=== PATIENT | male | born 1935 | race Caucasian/White ===

== ENCOUNTER 2017-10-12 10:39 | Emergency (ER) | payer MEDICARE, OTHER ==
[~2017-10-12] VITALS: Ht 175.3 cm; Wt 99.0 kg
[~2017-10-12 10:39] MED LIST: ALPR0.5T3 PO; APIX2.5T PO; CALC-197 PO; CARV25TA PO; FERR140T PO; ISOS60 PO; LASI20TA PO; PACE200T4 PO; PRIN20TA2 PO; PROT40TA PO; SIMV40 PO; ST JTAB PO; SYNT25TA PO; TAB-TAB PO
[2017-10-12 10:56] VITALS: BP 114/57; PULSE 75; RESP 20; TEMP 97.6; O2SAT 95
--- NOTE | 2017-10-12 11:20 | PD ---
HPI Chief Complaint: Fall Time Seen by Provider: 11:06 Travel History International Travel<30 days: No Contact w/Intl Traveler<30days: No Traveled to known affect area: No History of Present Illness HPI Patient comes to the emergency department for evaluation status post mechanical fall that occurred 4 days ago. Patient states he got out of his car in the [employer] parking lot when he tripped over something landing on his left side. Patient denies hitting his head or loss of consciousness. Patient complaining of left elbow pain, bilateral hip pain, left rib pain, and sore muscles. Describes pain as achy like in nature. Patient reports taking Tylenol for symptomatic relief and cleaning his skin tear. Patient reports his tetanus shot is up-to-date. 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 Patient is on Eliquis. Denies any radiation of pain. Pain is worse with movement, cough, and deep inspiration. Denies any chest pain, shortness of breath, dizziness, or syncope. 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) Cardiac Catheterization: Yes Cardiovascular Problems: Yes High Cholesterol: Yes Coronary Artery Disease: Yes Diabetes: No Diminished Hearing: Yes Endocrine: Yes Gastrointestinal Disorders: No Glaucoma: No Genitourinary: No Hepatitis: No Hiatal Hernia: No Hypertension: Yes Implanted Vascular Access Dvce: Yes Medical other: Yes (, AAA HISTORY) Musculoskeletal: No Neurologic: Yes Psychiatric: Yes Reproductive: No Respiratory: Yes Immunizations Current: Yes Thyroid Disease: Yes Tetanus Vaccination: < 5 Years Influenza Vaccination: Yes Past Surgical History AICD: Yes Cardiac Surgery: Yes (cabg pacemaker) Coronary Artery Bypass Graft: Yes Eye Surgery: Yes (BILAT. CATARACTS REMOVED) Other Surgery: Yes Social History Alcohol Use: Yes Tobacco Use: No Substance Use: No Allergies-Medications (Allergen,Severity, Reaction): Coded Allergies: penicillin G (Unverified Allergy, Severe, Anaphylaxis, 10/12/17) Reported Meds & Prescriptions Reported Meds & Active Scripts Active Reported Melatonin 10 Mg-1 Mg Tab 10 Mg PO HS PRN Flexeril (Cyclobenzaprine HCl) 10 Mg Tab 10 Mg PO TID Alprazolam 0.5 Mg Tab 0.5 Mg PO TID PRN Aspirin EC (Aspirin) 81 Mg Tabdr 81 Mg PO ,, Coq-10 (Coenzyme Q10 (Ubidecarenone)) 30 Mg Cap 2 Tab PO DAILY Multiple Vitamin 1 Tab 1 Tab PO DAILY Calcium 500 +D (Calcium Carbonate-Cholecalciferol) 500-400 Mg-Unit Tab 1 Tab PO BID Levothyroxine (Levothyroxine Sodium) 25 Mcg Tab 37.5 Mcg PO WED,WED Levothyroxine (Levothyroxine Sodium) 25 Mcg Tab 25 Mcg PO - Levothyroxine (Levothyroxine Sodium) 25 Mcg Tab 25 Mcg PO DAILY Isosorbide Dinitrate 30 Mg Tab 60 Mg PO DAILY [iron] 65 Mg PO QOD Omeprazole 40 Mg Cap 40 Mg PO DAILY Carvedilol 25 Mg Tab 25 Mg BID Losartan (Losartan Potassium) 100 Mg Tab 100 Mg PO DAILY Amiodarone (Amiodarone HCl) 200 Mg Tab 200 Mg PO DAILY Eliquis (Apixaban) 2.5 Mg Tab 2.5 Mg PO BID Review of Systems Except as stated in HPI: all other systems reviewed are Neg Physical Exam Narrative GENERAL: Well-developed, overly nourished, in no acute distress, and non-ill appearing. SKIN: Focused skin assessment warm and dry. Patient has a dressing over his left elbow reports his farm tractor mechanic was placed after cleaning his skin tear. It is dry clean and intact. HEAD: Atraumatic. Normocephalic. EYES: Pupils equal and round. EOMI. No scleral icterus. No injection or drainage. ENT: No nasal bleeding or discharge. Mucous membranes pink and moist. NECK: Trachea midline. No nuclear rigidity. CARDIOVASCULAR: Regular rate and rhythm. No murmur appreciated. Radial and dorsal pulses 2+, intact, and equal bilaterally. Capillary refill less than 2 seconds. RESPIRATORY: No accessory muscle use. No respiratory distress. Clear to auscultation. Breath sounds equal bilaterally. Patient reports tenderness to palpation over left lateral rib cage. No crepitus or step-off noted. GASTROINTESTINAL: Abdomen soft, non-tender, nondistended, and no guarding. Hepatic and splenic margins not palpable. No pulsatile mass. MUSCULOSKELETAL: No obvious deformities. No clubbing. No cyanosis. No edema. Full range of motion for patient. Elbow : FROM and strength equal BL with passive flexion, extension, and pronation/supination. No laxity noted with varus and valgus maneuvers. Pulses equal BL distal to injury. Capillary refill less than 2 seconds distal to injury and equal BL. FROM distal to injury and equal BL. Strength distal to injury equal BL. NV intact distal to injury and equal BL. Flexion and extension of thumb equal BL. Equal strength and movement with abduction/adductions of BL fingers. [employer] strength equal BL. Pelvic stable. Hip: Equal range of motion BL with passive flexion, extension, Abduction, Adduction, and internal/external rotation. Equal range of motion distal to injury and equal BL. Strength distal to injury equal BL. NV intact distal to injury and equal BL. Plantar flexion and dorsal flexion equal BL. Sensation equal BL 1st web space. NEUROLOGICAL: Awake and alert. No obvious cranial nerve deficits. Motor grossly within normal limits. Normal speech. PSYCHIATRIC: Appropriate mood and affect; insight and judgment normal. Data Data Last Documented VS Vital Signs Date Time Temp Pulse Resp B/P (MAP) Pulse Ox O2 Delivery O2 Flow Rate FiO2 10/12/17 12:40 10/12/17 11:29 100.3 88 16 96 Room Air Orders Orders Elbow, Complete (4 Vws) (10/12/17 ) Ribs, Uni (W/Exp Cxr-Min 3vw) (10/12/17 ) Pelvis, Ap Only (Routine) (10/12/17 ) Resp Incentive Spirometry (10/12/17 ) Ed Discharge Order (10/12/17 12:29) [facility] Medical Decision Making Medical Screen Exam Complete: Yes Emergency Medical Condition: Yes Interpretation(s) Last Impressions Ribs X-Ray 10/12/17 0000 Signed Impressions: Service Date/Time: Thursday, October 12, 2017 11:31 - CONCLUSION: 1. There is a left eighth rib fracture laterally. No pneumothorax or effusion. Parmjit Conner MD Pelvis X-Ray 10/12/17 0000 Signed Impressions: Service Date/Time: Thursday, October 12, 2017 11:31 - CONCLUSION: 1. No acute fracture. Mild osteoarthritis of the hips. Postoperative change as above. Parmjit Conner MD Elbow X-Ray 10/12/17 0000 Signed Impressions: Service Date/Time: Thursday, October 12, 2017 11:31 - CONCLUSION: 1. No acute fracture. Moderate degenerative change. Parmjit Conner MD Differential Diagnosis Fracture, strain, contusion, pneumothorax, hemopneumothorax Narrative Course The patient suffered rib fracture with chest wall contusion. There is no clinical evidence to suggest intrathoracic injury nor cardiac injury at this time. There was no clinical evidence to suggest flail chest. The patient moves air well without difficulty and is clear to auscultation. Heart sounds are audible without rubs, murmurs or gallops. There is no palpable crepitus. Pulses are symmetrical and strong. There is no significant tenderness over the lower chest to suggest injury to the liver nor spleen. Chest X-ray was normal without evidence of pneumothorax or hemothorax. The mediastinum appeared within normal limits. Diagnosis was discussed with the patient. The patient was discharged with a Inspiratory Spirometer after training. The patient is to return if develops any worsening pain, difficulty breathing, or if coughs up blood or develops fever. Patient agrees with plan and was recommended to follow up with their regular physician. The patient appears to have suffered a contusions. There is no clinical evidence to suspect bony injury by exam. Radiographic examination revealed no fracture seen at this time. The patient has equal range of motion on active and passive motions. There is no significant edema. There is no proximal or distal joint effusion. The distal extremity appears neurovascularly intact, without evidence of neurovascular injury nor compartment syndrome. Tendon exam also was intact. The patient was discharged and given warnings for vascular compromise. The patient is to follow up with their regular physician. The patient agrees with plan. Patient in no obvious distress upon re-evaluation. All pertinent Radiology result(s) discussed with patient and his significant other. Any questions/ concerns in reference to patient diagnosis/condition discussed and clarified prior to patient's discharge. Reinforced sheer importance of close follow up with patient's primary physician or primary care clinic. Instructed patient to return to ED immediately, if symptoms return/worsen. Patient showed understanding of above instructions. Further instructions and recommendations were detailed in discharge paperwork. Patient ambulated without difficulty out of ED at discharge. Diagnosis Primary Impression: Left rib fracture Qualified Codes: S22.32XA - Fracture of one rib, left side, initial encounter for closed fracture Additional Impression: Multiple contusions Patient Instructions: Contusion in Adults (ED), General Instructions, Rib Fracture (ED) Additional Instructions: Follow-up with your primary care physician in 3-5 days for reevaluation. Use [id number] Tylenol as needed for pain control. Follow instructions on the packaging. Use incentive spirometer as instructed 10 times per hour to decrease chances of getting pneumonia. Keep wound dry and clean as possible using soap and water. Apply ice to affected area 20 min/h as needed for pain. Return to the emergency department if symptoms get worse. Disposition: 01 DISCHARGE HOME Condition: Stable Kevin Mercedes Oct 12, 2017 11:20
[2017-10-12] MEDS ORDERED: OMEP40CA2 PO (11:22)
[2017-10-12] MEDS ORDERED: CARV25TA (11:22)
[2017-10-12] MEDS ORDERED: COQ-30CA2 PO (11:22)
[2017-10-12] MEDS ORDERED: MELA1TAB18 PO (11:22)
[2017-10-12] MEDS ORDERED: AMIO200T PO (11:22)
[2017-10-12] MEDS ORDERED: LEVO25TA4 PO ×3 (11:22)
[2017-10-12] MEDS ORDERED: ALPR0.5T3 PO (11:22)
[2017-10-12] MEDS ORDERED: CYCL10TA PO (11:22)
[2017-10-12] MEDS ORDERED: LOSA100T PO (11:22)
[2017-10-12] MEDS ORDERED: ASPI81TA23 PO (11:22)
[2017-10-12] MEDS ORDERED: APIX2.5T PO (11:22)
[2017-10-12] MEDS ORDERED: MULTTAB67 PO (11:22)
[2017-10-12] MEDS ORDERED: ISOS30TA17 PO (11:22)
[2017-10-12] MEDS ORDERED: iron PO (11:22)
[2017-10-12] MEDS ORDERED: CALC1TAB12 PO (11:22)
[2017-10-12 11:29] VITALS: BP 117/56; PULSE 88; RESP 16; TEMP 100.3; O2SAT 96
--- NOTE | 2017-10-12 12:20 | RADRPT ---
EXAM DATE/TIME: 10/12/2017 11:31 [facility] COMPARISON: No previous studies available for comparison. INDICATIONS : Left hip/pelvic pain post fall 4 days ago. MEDICAL HISTORY : Hypercholesterolemia. Hypertension Thyroid disease. CAD. A-fib. SURGICAL HISTORY : Total knee replacement, left. Total knee replacement, right. Pacemaker. CABG. Cardiac cath. AAA. ENCOUNTER: Initial ACUITY: 4 - 6 days PAIN SCORE: 7/10 LOCATION: Left hip/pelvis FINDINGS: A single frontal view of the pelvis demonstrates osteopenia. Mild osteoarthritis of the bilateral hip s. Distal aortic and biiliac stent is present. Embolization coils left hemipelvis. Extensive vascular calcifications. No acute fracture identified. CONCLUSION: 1. No acute fracture. Mild osteoarthritis of the hips. Postoperative change as above. Parmjit Conner MD on October 12, 2017 at 12:15 Board Certified Radiologist. This report was verified electronically.
--- NOTE | 2017-10-12 12:23 | RADRPT ---
EXAM DATE/TIME: 10/12/2017 11:31 [facility] COMPARISON: No previous studies available for comparison. INDICATIONS : Left elbow pain post fall. MEDICAL HISTORY : Hypercholesterolemia. Hypertension Thyroid disease. A-fib. CAD. SURGICAL HISTORY : Total knee replacement, left. Pacemaker. Total knee replacement, right. CABG. Cardiac cath. AAA. ENCOUNTER: Initial ACUITY: 4 - 6 days PAIN SCORE: 7/10 LOCATION: Left elbow FINDINGS: There is moderate osteoarthritis at the elbow joint. Small joint effusion. Extensive periarticular ca lcifications present. No acute fracture. CONCLUSION: 1. No acute fracture. Moderate degenerative change. Parmjit Conner MD on October 12, 2017 at 12:18 Board Certified Radiologist. This report was verified electronically.
--- NOTE | 2017-10-12 12:25 | RADRPT ---
EXAM DATE/TIME: 10/12/2017 11:31 [facility] COMPARISON: No previous studies available for comparison. INDICATIONS : Left rib pain post fall. MEDICAL HISTORY : Hypercholesterolemia. Hypertension CAD. Thyroid disease. A-fib. SURGICAL HISTORY : Total knee replacement, left. Total knee replacement, right. Abdominal aortic aneurysm repair. Pacema ker. Cardiac cath. CABG. ENCOUNTER: Initial ACUITY: 4 - 6 days PAIN SCORE: 9/10 LOCATION: Left lateral ribs FINDINGS: There is a left-sided eighth rib fracture. No pneumothorax or significant pleural effusion. Previous median sternotomy with pacer lead placement for a distal aortic and iliac stents. CONCLUSION: 1. There is a left eighth rib fracture laterally. No pneumothorax or effusion. Parmjit Conner MD on October 12, 2017 at 12:21 Board Certified Radiologist. This report was verified electronically.
[2017-10-13] MEDS ORDERED: FERR325T18 PO (11:11)
== END 2017-10-12 12:40 | disposition home or self-care (01) ==
LOC: PHEFT 10:39
DX: S22.32XA Fracture of one rib, left side, initial encounter for closed fracture (principal); S20.219A Contusion of unspecified front wall of thorax, initial encounter; S50.02XA Contusion of left elbow, initial encounter; S70.02XA Contusion of left hip, initial encounter; S70.01XA Contusion of right hip, initial encounter; W01.0XXA Fall on same level from slipping, tripping and stumbling without subsequent striking against object, initial encounter; Y92.481 Parking lot as the place of occurrence of the external cause; I48.91 Unspecified atrial fibrillation; I10 Essential (primary) hypertension; I25.10 Atherosclerotic heart disease of native coronary artery without angina pectoris; E07.9 Disorder of thyroid, unspecified; F41.9 Anxiety disorder, unspecified; H91.90 Unspecified hearing loss, unspecified ear; Z79.01 Long term (current) use of anticoagulants; Z85.828 Personal history of other malignant neoplasm of skin; Z86.79 Personal history of other diseases of the circulatory system; Z86.69 Personal history of other diseases of the nervous system and sense organs
CPT/HCPCS: 71101; 72170; 73080; 94150; 99284

== ENCOUNTER 2018-07-25 01:39 | Inpatient (IN) ==
[2018-07-25] MEDS ORDERED: Etomidate Inj 40 MG/20 ML Vial IV.PUSH ONE (01:48)
[2018-07-25] MEDS ORDERED: Midazolam Inj 5 MG/ML 1 ML Vial ONE ×2 (02:07→02:24)
[2018-07-25] MEDS ORDERED: Sod Chloride 0.9% Inj 1,000 ML IV.SIG ONE ×2 (02:08→17:32)
[2018-07-25] MEDS ORDERED: Etomidate Inj 20 MG/10 ML Ampul IV.PUSH ONE (02:10)
[2018-07-25] MEDS ORDERED: Succinylcholine Inj 100 MG/5 ML Syringe IV.PUSH ONE (02:10)
[2018-07-25] MEDS ORDERED: Midazolam 100 MG/100 ML Inj 100 MG/100 ML BAG IV.CONT ONE (02:34)
[2018-07-25] MEDS ORDERED: fentaNYL 10 mcg/mL Premix Drip 2,500 MCG/250 ML BAG ONE (02:34)
[2018-07-25 02:37] LABS: Baso % (Auto) 0.3 % (0.0-2.0); Eos % (Auto) 0.4 % (0.0-4.0); Lymph # (Auto) 0.5 th/mm3 (1.0-4.8); Lymph % (Auto) 10.6 % (9.0-44.0); Mean Corpuscular HGB Conc 31.3 % (32.0-36.0); Mean Corpuscular Hemoglobin 33.3 pg (27.0-34.0); Mean Corpuscular Volume 106.2 fL (80.0-100.0); Mean Platelet Volume 11.6 fL (7.0-11.0); Mono # (Auto) 0.4 th/mm3 (0.0-0.9); Mono % (Auto) 8.4 % (0.0-8.0); Neut % (Auto) 80.3 % (16.0-70.0); Platelet Count 57 th/mm3 (150-450); Red Cell Distribution Width 21.2 % (11.6-17.2)
[2018-07-25 02:38] LABS: Red Blood Count 0.76 mil/mm3 (4.50-5.90)
[2018-07-25 02:42] LABS: Hemoglobin 2.5 gm/dL (13.0-17.0)
[2018-07-25 02:43] LABS: Hematocrit 8.1 % (39.0-51.0)
[2018-07-25 02:58] LABS: Activated Partial Thrombo Time 38.7 sec (23.4-31.7); Albumin 2.4 g/dL (3.4-5.0); Calcium 6.4 mg/dL (8.5-10.1); Carbon Dioxide 15.4 meq/L (21.0-32.0); INR 1.5 Ratio; Potassium 4.7 meq/L (3.5-5.1); Prothrombin Time 15.3 sec (9.8-11.6); Troponin I 0.03 ng/mL (0.02-0.05)
--- NOTE | 2018-07-25 03:00 | CT ---
EXAM DATE: 07/25/2018 2:49 AM EST AGE/SEX: 83 years / Male INDICATIONS: Dissection versus Aneurysm. Patient unresponsive. CLINICAL DATA: This is the patient's initial encounter. Patient reports that signs and symptoms have been present for 1 day and indicates a pain score of Nonresponsive. MEDICAL/SURGICAL HISTORY: Non-responsive. Non-responsive. RADIATION DOSE: 10.39 CTDI (mGy) COMPARISON: POI, CT ABDOMEN AND PELVIS W AND W/O CONTRAST, 11/19/2017. . TECHNIQUE: Volumetric scanning was performed using a multi-row detector CT scanner during bolus infu dewayne of 100 ml Omnipaque 350 (iohexol) nonionic water-soluble contrast as a single exam dose. The d jc was post processed with a variety of visualization algorithms including full volume maximum inten sity projection, multi-planar sliding thin slab reformation, curved planar reformation, and surface r endering techniques. Using automated exposure control and adjustment of the mA and/or kV according t o patient size, radiation dose was kept as low as reasonably achievable to obtain optimal diagnostic quality images. DICOM format image data is available electronically for review and comparison. FINDINGS: THORACIC/ABDOMINAL AORTA: Diffuse atherosclerotic plaque throughout the aorta and its major branches. No dissection or aneurysm. 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 3 cm. There is limited opacification of the aorta with the contrast bolus. No endoleak seen on this l imited study. 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 50% stenosis the left renal artery origin and 40% st enosis the right renal artery origin. HEART AND MEDIASTINUM: Mild cardiomegaly without pericardial effusion. Pronounced coronary artery ath erosclerotic calcifications. Pulmonary arteries are normal in caliber. Tip of endotracheal tube withi n the origin of the right mainstem bronchus. No mass or adenopathy. LUNG PARENCHYMA: Mild bibasilar atelectasis. Scattered calcified granulomas. No infiltrate or mass. N o effusions. OTHER STRUCTURES: Granulomatous calcifications involving the liver and spleen. The kidneys are somewh at atrophic. A trace amount of ascitic fluid is seen around the liver and gallbladder fossa. Scattere d colonic diverticuli without acute inflammation. Urinary bladder is decompressed and contains a Fole y balloon. CONCLUSION: 1. Tip of the endotracheal tube within the origin of the right mainstem bronchus. 2. No dissection. 3. 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 I am not able to clearly identify the endoleak on this study, however , there is limited opacification of the aorta which would make identification of an endoleak difficul t. 4. Hemodynamically significant stenoses involving the celiac, SMA, and renal arteries 5. Trace amount of ascites. Electronically signed by: Bala Adkins MD 07/25/2018 2:59 AM EST
[2018-07-25] MEDS: fentaNYL 10 mcg/mL Premix Drip 2,500 MCG/250 ML BAG IV.SIG PRN ×2 (03:20→08:01)
[2018-07-25] MEDS: Midazolam 100 MG/100 ML Inj 100 MG/100 ML BAG IV.CONT PRN ×3 (03:21→22:47)
--- NOTE | 2018-07-25 03:23 | ED ---
HPI General Chief Complaint: Syncope Stated Complaint: Medical Time Seen by Provider: 07/25/18 02:08 Source: EMS Mode of arrival: EMS Limitations: altered mental status History of Present Illness HPI narrative: 83-year-old male came to the emergency room with history of near syncopal episode x2 at home tonight. His called 911. As per EMS when they arrived patient was talking and had a good blood pressure and heart rate. However midway into the right he started getting very anxious and complained of being thirsty and needing to drink water. His blood pressure at that point was 60 systolic. He started to look pale. By the time where they arrived to the ER he started to look in extremis. Patient was extremely pale upon arrival. Blood pressure was difficult to be recorded. Patient was moaning and answered upon repeated questioning. Patient was not complaining of any pain. No history of GI bleed as per the paramedics. Patient was in no condition to give any meaningful history. Related Data Home Medications Medication Instructions Recorded Confirmed amiodarone 200 mg PO DAILY 07/25/18 07/25/18 apixaban [Eliquis] 2.5 mg PO BID 07/25/18 07/25/18 aspirin [Aspir-Low] 81 mg PO DAILY 07/25/18 07/25/18 calcium carbonate [Calcium 600] 07/25/18 carvedilol 25 mg PO BID 07/25/18 07/25/18 furosemide 40 mg PO DAILY 07/25/18 07/25/18 isosorbide mononitrate 60 mg PO DAILY 07/25/18 07/25/18 levothyroxine 25 mcg PO DAILY 07/25/18 07/25/18 omeprazole 20 mg PO DAILY 07/25/18 07/25/18 potassium chloride 10 meq PO BID 07/25/18 07/25/18 rosuvastatin [Crestor] 5 mg PO DAILY 07/25/18 07/25/18 sacubitril-valsartan [Entresto] 1 tab PO BID 07/25/18 07/25/18 Allergies Allergy/AdvReac Type Severity Reaction Status Date / Time penicillin G Allergy Severe Anaphylaxis Verified 07/25/18 02:21 Review of Systems ROS: all other systems reviewed are negative [facility] Medical History Medical History A-fib (Acute) Artificial cardiac pacemaker (Acute) CAD (coronary artery disease) (Acute) Cardiac defibrillator in place (Acute) Heart valve disease (Acute) High cholesterol (Acute) Hypertension (Acute) Hypothyroidism (Acute) Prostate cancer (Acute) Psoriasis (Acute) Surgical History Surgical History H/O knee surgery (Acute) History of abdominal aortic aneurysm (AAA) repair (Acute) Social History Social History Substance History: No History of Abuse Second Hand Smoke Exposure: No Smoking Status: Unknown if ever smoked How Often Do You Have a Drink Containing Alcohol: Unable to Obtain Recent Travel in [facility] within the Last 8 Weeks: No Recent Out of Country Travel within the Last 8 Weeks: No Exam Narrative Exam Narrative: GENERAL: Altered mental status, significant distress, impending respiratory failure SKIN: Cool and pale HEAD: Atraumatic. Normocephalic. EYES: Pupils equal and round. No scleral icterus. No injection or drainage. ENT: No nasal bleeding or discharge. Mucous membranes pink and moist. Pallor 4 + NECK: Trachea midline. No JVD. CARDIOVASCULAR: Regular rate and rhythm. No murmur appreciated. RESPIRATORY: No accessory muscle use. Clear to auscultation. Breath sounds equal bilaterally. GASTROINTESTINAL: Abdomen soft, non-tender, nondistended. Hepatic and splenic margins not palpable. MUSCULOSKELETAL: No obvious deformities. No clubbing. No cyanosis. No edema. NEUROLOGICAL: GCS of 12. No obvious cranial nerve deficits. Motor grossly within normal limits. Slurred speech. PSYCHIATRIC: Anxious Procedures Hemaprompt Stool Procedural Steps Taken: specimen placed in appropriate test area, developer placed on specimen and control areas and controls appropriately positive and negative Hemaprompt Stool Result: negative Intubation Sedative: etomidate Mg Given: 20 Paralytic: succinylcholine Mg Given: 100 Laryngoscope: Natalie ET Tube Size: 7.5 ET Tube Uncuffed: No Tube Secured Depth (cm): 24 Tube Placement Confirmation: visualized tube passing through cords, equal breath sounds bilaterally and confirmation by capnometry Patient Tolerated Procedure: well Intubation Complications: none Ultrasound POC Ultrasound Procedure: Emergency department Abdominal Aortic Aneurysm ultrasound was performed with patient consent. Curvilinear probe was used in the transverse and sagittal views within the epigastric, supraumbilical, and infraumbilical with evidence of Abdominal Aortic Aneurysm. Course Initial Documented Vital Signs Temperature 97 F L 07/25/18 02:00 Pulse Rate 67 07/25/18 02:00 Respiratory Rate 20 07/25/18 02:00 Blood Pressure 107/67 07/25/18 02:00 Pulse Oximetry 98 07/25/18 02:00 Last Documented Vital Signs Temperature 97 F L 07/25/18 05:13 Pulse Rate 60 07/25/18 05:16 Respiratory Rate 16 07/25/18 05:16 Blood Pressure 99/54 L 07/25/18 05:16 Pulse Oximetry 98 07/25/18 05:10 Critical Care Time Critical Care Time: Yes Total Critical Care Time: 75 Attestation: Aggregate critical care time was 75 minutes. Time to perform other separately billable procedures was not included in the critical care time. My time did not include minutes spent treating any other patients simultaneously or on activities that did not directly contribute to the patient's treatment. The services I provided to this patient were to treat and/or prevent clinically significant deterioration that could result in: Hemorrhagic shock, multiple blood transfusion, respiratory failure, ventilator management I provided critical care services requiring my management, as noted below: Chart data review, documentation time, medication orders and management, vital sign assessments/reviewing monitor data, ordering and reviewing lab tests, ordering and interpreting/reviewing x-rays and diagnostic studies, care of the patient and discussion of the patient with the admitting physicians. Medical Decision Making MDM Narrative Medical decision making narrative: 4 AM based on the bedside ultrasound and the clinical presentation patient was rushed to the CT scanner for thoracic aortogram without the creatinine result for possible ruptured AAA. He was started on 4 units of emergency release blood. Patient's blood pressure stabilized from that point. CT scan showed a AAA with questionable endoleak. I discussed the case with Dr. Lewis was application lead for vascular. He reviewed the CAT scan and did not think that there was any rupture to the AAA. As per him this was stable and to look for other causes of the bleeding. Given his Hemoccult positive GI was paged. Several pages have been put in GI has not called back yet. Patient has been started on Protonix bolus and drip. NG tube has not put out any blood. Patient was given 1 unit of FFP. I discussed the case with Raymundo from ICU who has accepted the patient. She has put a central line. Please refer to her dictation. I discussed the case in details with patient's , daughter in person as well as another daughter on the phone. I explained to them about patient's condition and possible etiologies to his hemorrhagic shock. I have answered all the questions the best of my ability. Patient is in a critical condition. Lab Data Result diagrams: 07/25/18 03:05 07/25/18 02:20 Lab Results 07/25/18 07/25/18 07/25/18 Range/Units 02:08 02:20 02:20 WBC 5.0 (4.0-11.0) th/mm3 RBC 0.76 L (4.50-5.90) mil/mm3 Hgb 2.5 L* (13.0-17.0) gm/dL Hct 8.1 L* (39.0-51.0) % MCV 106.2 H (80.0-100.0) fL MCH 33.3 (27.0-34.0) pg MCHC 31.3 L (32.0-36.0) % RDW 21.2 H (11.6-17.2) % Plt Count 57 L (150-450) th/mm3 MPV 11.6 H (7.0-11.0) fL Prelim Diff (Auto) Slide review pending Neut % (Auto) 80.3 H (16.0-70.0) % Lymph % (Auto) 10.6 (9.0-44.0) % [place] % (Auto) 8.4 H (0.0-8.0) % Eos % (Auto) 0.4 (0.0-4.0) % Baso % (Auto) 0.3 (0.0-2.0) % Neut # (Auto) 4.0 (1.8-7.7) th/mm3 Lymph # (Auto) 0.5 L (1.0-4.8) th/mm3 [place] # (Auto) 0.4 (0.0-0.9) th/mm3 Eos # (Auto) 0.0 (0.0-0.4) th/mm3 Baso # (Auto) 0.0 (0.0-0.2) th/mm3 WBC Differential . Diff Scan Auto diff confirmed Differential Comment . Platelet Estimate Low L (Normal) Platelet Morphology Enlarged H (Normal) Jerry Cells (None) Acanthocytes (Spur) Occ H (None) Keratocytes Occ H (None) PT (9.8-11.6) sec INR Ratio APTT (23.4-31.7) sec Puncture Site Patient Temperature O2 Saturation (90-100) % ABG pH (7.380-7.420) ABG pCO2 (38-42) mmHg ABG pO2 (61-120) mmHg ABG HCO3 (22-26) mmol/L ABG O2 Content (12.0-20.0) Vol % ABG Base Excess (-2-2) mmol/L ABG Methemoglobin (0-2) % Tao Test Hemoglobin (12.0-16.0) G/DL Carboxyhemoglobin (0-4) % O2 Delivery Device Vent Setting Inspired O2 % Critical Value Sodium (136-145) meq/L Potassium (3.5-5.1) meq/L Chloride (98-107) meq/L Carbon Dioxide (21.0-32.0) meq/L Anion Gap (5-15) meq/L BUN (7-18) mg/dL Creatinine (0.60-1.30) mg/dL Estimated GFR (>89) mL/min Random Glucose (74-106) mg/dL Lactic Acid (0.4-2.0) mmol/L Calcium (8.5-10.1) mg/dL Calcium Adj for Albumin (8.5-10.1) mg/dL Total Bilirubin (0.2-1.0) mg/dL AST (15-37) U/L ALT (12-78) U/L Alkaline Phosphatase (45-117) U/L Troponin I (0.02-0.05) ng/mL Total Protein (6.4-8.2) g/dL Albumin (3.4-5.0) g/dL Urine Color (Yellw/Straw) Urine Clarity (Clear) Urine pH (5.0-8.5) Ur Specific [place] (1.002-1.035) Urine Protein (Neg-Trace) mg/dL Urine Glucose (UA) (Negative) mg/dL Urine Ketones (Negative) mg/dL Urine Occult Blood (Negative) Urine Nitrate (Negative) Urine Bilirubin (Negative) Urine Urobilinogen (Less than 2) mg/dL Ur Leukocyte Esterase (Negative) Urine RBC (0-3) /hpf Urine WBC (0-5) /hpf Ur Squamous Epith Cells (0-5) /hpf Urine Bacteria (None) /hpf Hyaline Casts (0-3) /lpf Urine Mucus (Occasional) /lpf Micro UA Comment Ur Microscopic Review Urine Culture Comments Blood Type A Positive Antibody Screen Negative MTS Gel Crossmatch See Detail Blood Bank Comment Bld Prod Order Comment 07/25/18 07/25/18 07/25/18 Range/Units 02:20 02:20 03:05 WBC 6.7 (4.0-11.0) th/mm3 RBC 1.80 L (4.50-5.90) mil/mm3 Hgb 5.7 L* D (13.0-17.0) gm/dL Hct 17.8 L* (39.0-51.0) % MCV 98.9 D (80.0-100.0) fL MCH 31.6 (27.0-34.0) pg MCHC 32.0 (32.0-36.0) % RDW 18.1 H D (11.6-17.2) % Plt Count 50 L (150-450) th/mm3 MPV 11.4 H (7.0-11.0) fL Prelim Diff (Auto) Slide review pending Neut % (Auto) 84.6 H (16.0-70.0) % Lymph % (Auto) 9.1 (9.0-44.0) % [place] % (Auto) 4.4 (0.0-8.0) % Eos % (Auto) 0.2 (0.0-4.0) % Baso % (Auto) 1.7 (0.0-2.0) % Neut # (Auto) 5.7 (1.8-7.7) th/mm3 Lymph # (Auto) 0.6 L (1.0-4.8) th/mm3 [place] # (Auto) 0.3 (0.0-0.9) th/mm3 Eos # (Auto) 0.0 (0.0-0.4) th/mm3 Baso # (Auto) 0.1 (0.0-0.2) th/mm3 WBC Differential . Diff Scan Auto diff confirmed Differential Comment . Platelet Estimate Low L (Normal) Platelet Morphology Enlarged H (Normal) [place] Cells 1+ H (None) Acanthocytes (Spur) Occ H (None) Keratocytes (None) PT 15.3 H (9.8-11.6) sec INR 1.5 Ratio APTT 38.7 H (23.4-31.7) sec Puncture Site Patient Temperature O2 Saturation (90-100) % ABG pH (7.380-7.420) ABG pCO2 (38-42) mmHg ABG pO2 (61-120) mmHg ABG HCO3 (22-26) mmol/L ABG O2 Content (12.0-20.0) Vol % ABG Base Excess (-2-2) mmol/L ABG Methemoglobin (0-2) % Tao Test Hemoglobin (12.0-16.0) G/DL Carboxyhemoglobin (0-4) % O2 Delivery Device Vent Setting Inspired O2 % Critical Value Sodium 144 (136-145) meq/L Potassium 4.7 (3.5-5.1) meq/L Chloride 117 H (98-107) meq/L Carbon Dioxide 15.4 L (21.0-32.0) meq/L Anion Gap 12 (5-15) meq/L BUN 75 H (7-18) mg/dL Creatinine 2.74 H (0.60-1.30) mg/dL Estimated GFR 22 L (>89) mL/min Random Glucose 128 H (74-106) mg/dL Lactic Acid (0.4-2.0) mmol/L Calcium 6.4 L* (8.5-10.1) mg/dL Calcium Adj for Albumin 7.4 L* (8.5-10.1) mg/dL Total Bilirubin 0.3 (0.2-1.0) mg/dL AST 19 (15-37) U/L ALT 18 (12-78) U/L Alkaline Phosphatase 30 L (45-117) U/L Troponin I 0.03 (0.02-0.05) ng/mL Total Protein 5.0 L (6.4-8.2) g/dL Albumin 2.4 L (3.4-5.0) g/dL Urine Color (Yellw/Straw) Urine Clarity (Clear) Urine pH (5.0-8.5) Ur Specific [place] (1.002-1.035) Urine Protein (Neg-Trace) mg/dL Urine Glucose (UA) (Negative) mg/dL Urine Ketones (Negative) mg/dL Urine Occult Blood (Negative) Urine Nitrate (Negative) Urine Bilirubin (Negative) Urine Urobilinogen (Less than 2) mg/dL Ur Leukocyte Esterase (Negative) Urine RBC (0-3) /hpf Urine WBC (0-5) /hpf Ur Squamous Epith Cells (0-5) /hpf Urine Bacteria (None) /hpf Hyaline Casts (0-3) /lpf Urine Mucus (Occasional) /lpf Micro UA Comment Ur Microscopic Review Urine Culture Comments Blood Type Antibody Screen MTS Gel Crossmatch Blood Bank Comment Bld Prod Order Comment 07/25/18 07/25/18 07/25/18 Range/Units 03:05 03:45 04:35 WBC (4.0-11.0) th/mm3 RBC (4.50-5.90) mil/mm3 Hgb (13.0-17.0) gm/dL Hct (39.0-51.0) % MCV (80.0-100.0) fL MCH (27.0-34.0) pg MCHC (32.0-36.0) % RDW (11.6-17.2) % Plt Count (150-450) th/mm3 MPV (7.0-11.0) fL Prelim Diff (Auto) Neut % (Auto) (16.0-70.0) % Lymph % (Auto) (9.0-44.0) % [place] % (Auto) (0.0-8.0) % Eos % (Auto) (0.0-4.0) % Baso % (Auto) (0.0-2.0) % Neut # (Auto) (1.8-7.7) th/mm3 Lymph # (Auto) (1.0-4.8) th/mm3 [place] # (Auto) (0.0-0.9) th/mm3 Eos # (Auto) (0.0-0.4) th/mm3 Baso # (Auto) (0.0-0.2) th/mm3 WBC Differential Diff Scan Differential Comment Platelet Estimate (Normal) Platelet Morphology (Normal) Jerry Cells (None) Acanthocytes (Spur) (None) Keratocytes (None) PT (9.8-11.6) sec INR Ratio APTT (23.4-31.7) sec Puncture Site Patient Temperature O2 Saturation (90-100) % ABG pH (7.380-7.420) ABG pCO2 (38-42) mmHg ABG pO2 (61-120) mmHg ABG HCO3 (22-26) mmol/L ABG O2 Content (12.0-20.0) Vol % ABG Base Excess (-2-2) mmol/L ABG Methemoglobin (0-2) % Tao Test Hemoglobin (12.0-16.0) G/DL Carboxyhemoglobin (0-4) % O2 Delivery Device Vent Setting Inspired O2 % Critical Value Sodium (136-145) meq/L Potassium (3.5-5.1) meq/L Chloride (98-107) meq/L Carbon Dioxide (21.0-32.0) meq/L Anion Gap (5-15) meq/L BUN (7-18) mg/dL Creatinine (0.60-1.30) mg/dL Estimated GFR (>89) mL/min Random Glucose (74-106) mg/dL Lactic Acid 5.6 H* (0.4-2.0) mmol/L Calcium (8.5-10.1) mg/dL Calcium Adj for Albumin (8.5-10.1) mg/dL Total Bilirubin (0.2-1.0) mg/dL AST (15-37) U/L ALT (12-78) U/L Alkaline Phosphatase (45-117) U/L Troponin I (0.02-0.05) ng/mL Total Protein (6.4-8.2) g/dL Albumin (3.4-5.0) g/dL Urine Color (Yellw/Straw) Urine Clarity (Clear) Urine pH (5.0-8.5) Ur Specific [place] (1.002-1.035) Urine Protein (Neg-Trace) mg/dL Urine Glucose (UA) (Negative) mg/dL Urine Ketones (Negative) mg/dL Urine Occult Blood (Negative) Urine Nitrate (Negative) Urine Bilirubin (Negative) Urine Urobilinogen (Less than 2) mg/dL Ur Leukocyte Esterase (Negative) Urine RBC (0-3) /hpf Urine WBC (0-5) /hpf Ur Squamous Epith Cells (0-5) /hpf Urine Bacteria (None) /hpf Hyaline Casts (0-3) /lpf Urine Mucus (Occasional) /lpf Micro UA Comment Ur Microscopic Review Urine Culture Comments Blood Type Antibody Screen MTS Gel Crossmatch See Detail Blood Bank Comment Bld Prod Order Comment 07/25/18 07/25/18 07/25/18 Range/Units 04:52 05:00 05:04 WBC (4.0-11.0) th/mm3 RBC (4.50-5.90) mil/mm3 Hgb (13.0-17.0) gm/dL Hct (39.0-51.0) % MCV (80.0-100.0) fL MCH (27.0-34.0) pg MCHC (32.0-36.0) % RDW (11.6-17.2) % Plt Count (150-450) th/mm3 MPV (7.0-11.0) fL Prelim Diff (Auto) Neut % (Auto) (16.0-70.0) % Lymph % (Auto) (9.0-44.0) % [place] % (Auto) (0.0-8.0) % Eos % (Auto) (0.0-4.0) % Baso % (Auto) (0.0-2.0) % Neut # (Auto) (1.8-7.7) th/mm3 Lymph # (Auto) (1.0-4.8) th/mm3 [place] # (Auto) (0.0-0.9) th/mm3 Eos # (Auto) (0.0-0.4) th/mm3 Baso # (Auto) (0.0-0.2) th/mm3 WBC Differential Diff Scan Differential Comment Platelet Estimate (Normal) Platelet Morphology (Normal) [place] Cells (None) Acanthocytes (Spur) (None) Keratocytes (None) PT (9.8-11.6) sec INR Ratio APTT (23.4-31.7) sec Puncture Site Right radial Patient Temperature 98.6 O2 Saturation 98 (90-100) % ABG pH 7.27 L* (7.380-7.420) ABG pCO2 38 (38-42) mmHg ABG pO2 441 H (61-120) mmHg ABG HCO3 17 L (22-26) mmol/L ABG O2 Content 9.8 L (12.0-20.0) Vol % ABG Base Excess -8.7 L (-2-2) mmol/L ABG Methemoglobin 0.7 (0-2) % Tao Test Present Hemoglobin 6.2 L* (12.0-16.0) G/DL Carboxyhemoglobin 1.1 (0-4) % O2 Delivery Device Ventilator Vent Setting See comments Inspired O2 100 % Critical Value Yes Sodium (136-145) meq/L Potassium (3.5-5.1) meq/L Chloride (98-107) meq/L Carbon Dioxide (21.0-32.0) meq/L Anion Gap (5-15) meq/L BUN (7-18) mg/dL Creatinine (0.60-1.30) mg/dL Estimated GFR (>89) mL/min Random Glucose (74-106) mg/dL Lactic Acid (0.4-2.0) mmol/L Calcium (8.5-10.1) mg/dL Calcium Adj for Albumin (8.5-10.1) mg/dL Total Bilirubin (0.2-1.0) mg/dL AST (15-37) U/L ALT (12-78) U/L Alkaline Phosphatase (45-117) U/L Troponin I (0.02-0.05) ng/mL Total Protein (6.4-8.2) g/dL Albumin (3.4-5.0) g/dL Urine Color Yellow (Yellw/Straw) Urine Clarity Hazy H (Clear) Urine pH 5.0 (5.0-8.5) Ur Specific [place] 1.014 (1.002-1.035) Urine Protein 30 H (Neg-Trace) mg/dL Urine Glucose (UA) Negative (Negative) mg/dL Urine Ketones Negative (Negative) mg/dL Urine Occult Blood Large H (Negative) Urine Nitrate Negative (Negative) Urine Bilirubin Negative (Negative) Urine Urobilinogen Less than 2 (Less than 2) mg/dL Ur Leukocyte Esterase Negative (Negative) Urine RBC 19 H (0-3) /hpf Urine WBC 2 (0-5) /hpf Ur Squamous Epith Cells <1 (0-5) /hpf Urine Bacteria Rare H (None) /hpf Hyaline Casts 13 (0-3) /lpf Urine Mucus Few H (Occasional) /lpf Micro UA Comment Cath-culture ind Ur Microscopic Review Not Reportable Urine Culture Comments Cath-cult indicated Blood Type Antibody Screen MTS Gel Crossmatch Blood Bank Comment Bld Prod Order Comment Imaging Data Radiologist's impression: Thoracic Aorta CT 07/25/18 00:00 CONCLUSION: 1. Tip of the endotracheal tube within the origin of the right mainstem bronchus. 2. No dissection. 3. Endograft involving the infrarenal abdominal aorta with continued enlargement of the [facility] aneurysm sac suggesting an endoleak. I am not able to clearly identify the endoleak on this study, however, there is limited opacification of the aorta which would make identification of an endoleak difficult. 4. Hemodynamically significant stenoses involving the celiac, SMA, and renal arteries 5. Trace amount of ascites. Chest X-Ray 07/25/18 02:10 CONCLUSION: Tip of the endotracheal tube at the origin of the right mainstem bronchus. ECG Data Attestation: I personally reviewed and interpreted this ECG as follows: Interpretation: Twelve-lead EKG was reviewed by me. Atrial paced, interventricular conduction delay. Heart rate of 63 bpm. Discharge Plan Discharge Disposition Patient Disposition: 30 Still Patient Physicians Team ED Provider: Nemesio Ty Attending Provider: Aliza Fonseca Other Providers: Kenneth Lewis Status ED Status: Admitted Patient
[2018-07-25 03:27] LABS: Acanthocytes Occ
[2018-07-25 03:35] LABS: Baso # (Auto) 0.1 th/mm3 (0.0-0.2); Baso % (Auto) 1.7 % (0.0-2.0); Eos % (Auto) 0.2 % (0.0-4.0); Lymph # (Auto) 0.6 th/mm3 (1.0-4.8); Lymph % (Auto) 9.1 % (9.0-44.0); Mean Corpuscular Hemoglobin 31.6 pg (27.0-34.0); Mean Corpuscular Volume 98.9 fL (80.0-100.0); Mean Platelet Volume 11.4 fL (7.0-11.0); Mono # (Auto) 0.3 th/mm3 (0.0-0.9); Mono % (Auto) 4.4 % (0.0-8.0); Neut # (Auto) 5.7 th/mm3 (1.8-7.7); Neut % (Auto) 84.6 % (16.0-70.0); Platelet Count 50 th/mm3 (150-450); Red Cell Distribution Width 18.1 % (11.6-17.2); White Blood Count 6.7 th/mm3 (4.0-11.0)
--- NOTE | 2018-07-25 03:40 | XR ---
EXAM DATE: 07/25/2018 3:21 AM EST AGE/SEX: 83 years / Male INDICATIONS: E-T tube placement. CLINICAL DATA: This is the patient's initial encounter. Patient reports that signs and symptoms have been present for 1 day and indicates a pain score of Nonresponsive. MEDICAL/SURGICAL HISTORY: Hypercholesterolemia. Hypertension. Aneurysm, abdominal. A-fib. A bdominal aortic aneurysm repair. Total knee replacement, left. Total knee replacement, right. Pace maker. CABG. COMPARISON: [facility], RIBS LEFT(W PA CXR MIN 3VWS), 10/12/2017. . FINDINGS: A single AP view of the chest demonstrates the endotracheal tube tip at the origin of the right sunni tem bronchus. Heart is mildly enlarged. Lungs are clear. No effusions. Pacing device overlies left ch est. Median sternotomy wires. CONCLUSION: Tip of the endotracheal tube at the origin of the right mainstem bronchus. Electronically signed by: Bala Adkins MD 07/25/2018 3:39 AM EST
[2018-07-25 03:45] LABS: Hematocrit 17.8 % (39.0-51.0); Hemoglobin 5.7 gm/dL (13.0-17.0)
[2018-07-25 04:35] LABS: Acanthocytes Occ
[2018-07-25 04:37] LABS: Burr Cells 1+
[2018-07-25 05:11] LABS: Bacteria,Urine Rare /hpf; Bilirubin,Urine Negative (Negative); Clarity,Urine Hazy (Clear); Color,Urine Yellow (Yellw/Straw); Glucose,Urine (UA) Negative (Negative); Hyaline Casts,Urine 13 /lpf (0-3); Leukocyte Esterase,Urine Negative (Negative); Mucus,Urine Few /lpf (Occasional); Nitrite,Urine Negative (Negative); Specific Gravity,Urine 1.014 (1.002-1.035); Squamous Epithelial Cell,Urine <1 /hpf (0-5)
[2018-07-25 05:13] LABS: ABG Base Excess -8.7 mmol/L (-2-2); ABG PCO2 38 mmHg (38-42); ABG PO2 441 mmHg (61-120)
[2018-07-25] MEDS ORDERED: Phytonadione Inj 10 MG in Sodium Chlor 0.9% Inj 50 ML IV.SIG ONE (05:14)
[2018-07-25] MEDS ORDERED: PROTHROMBIN COMPLEX IV.SIG ONE (05:15)
[2018-07-25] MEDS ORDERED: Sodium Chlor 0.9% Inj 250 ML IV.SIG SCH (06:00)
--- NOTE | 2018-07-25 06:12 | XR ---
EXAM DATE: 07/25/2018 5:19 AM EST AGE/SEX: 83 years / Male INDICATIONS: Right sided central line placement. CLINICAL DATA: This is the patient's subsequent encounter. Patient reports that signs and symptoms h ave been present for 1 day and indicates a pain score of Nonresponsive. MEDICAL/SURGICAL HISTORY: . : Hypercholesterolemia. Hypertension. Aneurysm, abdominal. A-fib. . Abdominal aortic aneurysm repair. Total knee replacement, left. Total knee replacement, right. Pac emaker. CABG. COMPARISON: C, CHEST 1V SINGLE AP, 07/25/2018. . FINDINGS: A single AP view of the chest demonstrates a sheath overlying the right base of the neck. The tip is within the supraclavicular region. No pneumothorax observed. Endotracheal tube with the tip 2 cm from the bernardo. Nasogastric tube and left-sided pacing device. Median sternotomy wires. Top normal heart size. Clear lungs. No effusions. CONCLUSION: 1. Tip of the sheath involving the right neck overlies the supraclavicular region. No pneumothorax. 2. Repositioned endotracheal tube. Electronically signed by: Bala Adkins MD 07/25/2018 6:11 AM EST
--- NOTE | 2018-07-25 06:57 | P.CONVS ---
History of Present Illness Service: Vascular Surgery Consult date: 07/25/18 Requesting Physician: Nemesio Ty Reason for Consult: anemia, AAA Primary Care Provider: Ambar Chaudhary Chief Complaint: weakness History of Present Illness: 83 yo male brought to ED by family for progressive weakness. Pt was found to have Hct of 8, intubated and obtained CTA that showed large AAA. History obtained from daughter as pt is intubated. Reportedly he had EVAR elsewhere years ago. Over the past few weeks he has been progressively weaker and c/o overall malaise. No mention of BRBPR or emesis. Has been drinking (non alcohol) a lot per daughter. Overall, pt has AAA, CAD (sternotomy), a fib (ablation and now on ASA and systemic anticoagulation), pacer, and ortho surgeries The daughter denied that he complained of any unusual back or abdominal pain. Review of Systems unobtainable due to endotracheal tube PMFSH - History History Provided By: Steward/Stewardess Second / EMT - Medical History Medical History: Medical History (Last Reviewed 07/25/18 @ 06:49 by Kenneth Lewis MD) A-fib Artificial cardiac pacemaker CAD (coronary artery disease) Cardiac defibrillator in place Heart valve disease High cholesterol Hypertension Hypothyroidism Prostate cancer Psoriasis - Surgical History Surgical History: Surgical History (Last Reviewed 07/25/18 @ 06:49 by Kenneth Lewis MD) H/O knee surgery History of abdominal aortic aneurysm (AAA) repair - Tobacco History Second Hand Smoke Exposure: No Tobacco Use In Past 30 Days: No Smoking Status: Unknown if ever smoked - Alcohol History How Often Do You Have a Drink Containing Alcohol: Unable to Obtain - Substance Use History Substance History: No History of Abuse - Travel History Recent Travel in the [place] Within the Last 8 Weeks: No Recent Travel Out of the Country Within the Last 8 Weeks: No - Immunization History Tetanus Immunization: <5 Years Medications and Allergies Active Medications: Active Medications Midazolam HCl (Versed Inj) 100 mg in 100 mls @ 2 mls/hr IV.CONT TITRATE PRN; Protocol PRN Reason: See protocol Last Titration: 07/25/18 06:34 Dose: 10 mg/hr, 10 mls/hr Fentanyl (Fentanyl 10 Mcg/Ml Premix Drip) 2,500 mcg in 250 mls @ 5 mls/hr IV.SIG TITRATE PRN; Protocol PRN Reason: Per Protocol Last Titration: 07/25/18 06:34 Dose: 250 mcg/hr, 25 mls/hr Sodium Chloride (Ns Inj) 250 mls @ 15 mls/hr IV.SIG ONCE ALLY Stop: 07/25/18 22:39 Sodium Chloride (Ns Flush) 2 ml IV.FLUSH PRN PRN PRN Reason: FLUSH AFTER USING IV ACCESS Allergies Allergy/AdvReac Type Severity Reaction Status Date / Time penicillin G Allergy Severe Anaphylaxis Verified 07/25/18 02:21 Home Medications Medication Instructions Recorded Confirmed Type amiodarone 200 mg PO DAILY 07/25/18 07/25/18 History apixaban [Eliquis] 2.5 mg PO BID 07/25/18 07/25/18 History aspirin [Aspir-Low] 81 mg PO DAILY 07/25/18 07/25/18 History calcium carbonate [Calcium 600] 1 tab PO DAILY 07/25/18 07/25/18 History carvedilol 25 mg PO BID 07/25/18 07/25/18 History furosemide 40 mg PO DAILY 07/25/18 07/25/18 History isosorbide mononitrate 60 mg PO DAILY 07/25/18 07/25/18 History levothyroxine 25 mcg PO DAILY 07/25/18 07/25/18 History omeprazole 20 mg PO DAILY 07/25/18 07/25/18 History potassium chloride 10 meq PO BID 07/25/18 07/25/18 History rosuvastatin [Crestor] 5 mg PO DAILY 07/25/18 07/25/18 History sacubitril-valsartan [Entresto] 1 tab PO BID 07/25/18 07/25/18 History Physical Exam Vital Signs / I&O: Vital Signs 07/25/18 02:00 07/25/18 02:20 07/25/18 02:30 Temperature 97 F L Pulse Rate 67 61 Respiratory Rate 20 16 22 Blood Pressure 107/67 110/80 Pulse Oximetry 98 92 L 07/25/18 03:54 07/25/18 04:05 07/25/18 04:14 Temperature 97.7 F Pulse Rate 61 60 Respiratory Rate 16 Blood Pressure 100/53 L Pulse Oximetry 96 98 07/25/18 04:29 07/25/18 05:01 07/25/18 05:10 Temperature 97 F L Pulse Rate 65 63 60 Respiratory Rate 16 16 16 Blood Pressure 107/60 97/50 L 97/50 L Pulse Oximetry 98 93 L 98 07/25/18 05:13 07/25/18 05:16 07/25/18 06:11 Temperature 97 F L Pulse Rate 59 L 60 59 L Respiratory Rate 16 16 16 Blood Pressure 97/50 L 99/54 L 147/68 H Pulse Oximetry 98 07/25/18 06:23 07/25/18 06:25 Temperature 97.3 F L Pulse Rate 62 59 L Respiratory Rate 16 16 Blood Pressure 145/60 H 145/64 H Pulse Oximetry 96 98 Intake & Output 07/24/18 07/24/18 07/25/18 06:59 18:59 06:59 Intake Total 3251 / 3251 Output Total 525 / 525 Balance 2726 / 2726 Weight 99.79 kg Intake: IV 1251 / 1251 Vitamin K Inj 10 MG In NS Inj 51 / 51 50 ML @ 102 mls/hr IV.SIG ONCE ONE Rx#:[id number] Kcentra Inj 5,000 UNIT In Bag/ 200 / 200 Syringe 200 EACH @ 500 mls/hr IV.SIG ONCE ONE Rx#:[id number] NS Inj 1,000 ML @ Wide Open IV. 1000 / 1000 SIG BOLUS ONE Rx#:[id number] Other 1999 Intake (Blood Product) Amt 0 / 0 Plasma Thawed 5 Day Acda Unit 0 / 0 [id number] Plt Pheresis S Leukoreduced 0 / 0 Unit [id number] Pre-Pooled Cryo Thawed 10units 0 / 0 Unit [id number] Rbc As-3 Leukoreduced Unit 0 / 0 [id number] Rbc As-3 Leukoreduced Unit 0 / 0 [id number] Rbc As-3 Leukoreduced Unit 0 / 0 [id number] Output: Urine Amount (Catheter) 525 / 525 Indwelling Urethral Catheter 525 / 525 Other: Other Intake Source Saline Solution Neuro: Intubated, sedated HEENT: NC/AT Neck: non JVD, but obese Heart: sternotomy well healed; ecchymoses vs hemangioma R anterior chest wall L chest wall pacer/defibrillator in place Lungs: + air exchange B Abdomen: obese, nontender but sedated Vascular: palpable femoral pulses Laboratory Results - last 24 hr 12/03/18 12/03/18 12/03/18 02:08 02:20 02:20 WBC 5.0 RBC 0.76 L Hgb 2.5 L* Hct 8.1 L* MCV 106.2 H MCH 33.3 MCHC 31.3 L RDW 21.2 H Plt Count 57 L MPV 11.6 H Prelim Diff (Auto) Slide review pending Neut % (Auto) 80.3 H Lymph % (Auto) 10.6 [place] % (Auto) 8.4 H Eos % (Auto) 0.4 Baso % (Auto) 0.3 Neut # (Auto) 4.0 Lymph # (Auto) 0.5 L [place] # (Auto) 0.4 Eos # (Auto) 0.0 Baso # (Auto) 0.0 WBC Differential . Diff Scan Auto diff confirmed Differential Comment . Platelet Estimate Low L Platelet Morphology Enlarged H [place] Cells Acanthocytes (Spur) Occ H Keratocytes Occ H PT INR APTT Puncture Site Patient Temperature O2 Saturation ABG pH ABG pCO2 ABG pO2 ABG HCO3 ABG O2 Content ABG Base Excess ABG Methemoglobin Tao Test Hemoglobin Carboxyhemoglobin O2 Delivery Device Vent Setting Inspired O2 Critical Value Sodium Potassium Chloride Carbon Dioxide Anion Gap BUN Creatinine Estimated GFR Random Glucose Lactic Acid Calcium Calcium Adj for Albumin Total Bilirubin AST ALT Alkaline Phosphatase Troponin I Total Protein Albumin Urine Color Urine Clarity Urine pH Ur Specific [place] Urine Protein Urine Glucose (UA) Urine Ketones Urine Occult Blood Urine Nitrate Urine Bilirubin Urine Urobilinogen Ur Leukocyte Esterase Urine RBC Urine WBC Ur Squamous Epith Cells Urine Bacteria Hyaline Casts Urine Mucus Micro UA Comment Ur Microscopic Review Urine Culture Comments Blood Type A Positive Antibody Screen Negative MTS Gel Crossmatch See Detail Blood Bank Comment Bld Prod Order Comment 07/25/18 07/25/18 07/25/18 02:20 02:20 03:05 WBC 6.7 RBC 1.80 L Hgb 5.7 L* D Hct 17.8 L* MCV 98.9 D MCH 31.6 MCHC 32.0 RDW 18.1 H D Plt Count 50 L MPV 11.4 H Prelim Diff (Auto) Slide review pending Neut % (Auto) 84.6 H Lymph % (Auto) 9.1 [place] % (Auto) 4.4 Eos % (Auto) 0.2 Baso % (Auto) 1.7 Neut # (Auto) 5.7 Lymph # (Auto) 0.6 L [place] # (Auto) 0.3 Eos # (Auto) 0.0 Baso # (Auto) 0.1 WBC Differential . Diff Scan Auto diff confirmed Differential Comment . Platelet Estimate Low L Platelet Morphology Enlarged H [place] Cells 1+ H Acanthocytes (Spur) Occ H Keratocytes PT 15.3 H INR 1.5 APTT 38.7 H Puncture Site Patient Temperature O2 Saturation ABG pH ABG pCO2 ABG pO2 ABG HCO3 ABG O2 Content ABG Base Excess ABG Methemoglobin Tao Test Hemoglobin Carboxyhemoglobin O2 Delivery Device Vent Setting Inspired O2 Critical Value Sodium 144 Potassium 4.7 Chloride 117 H Carbon Dioxide 15.4 L Anion Gap 12 BUN 75 H Creatinine 2.74 H Estimated GFR 22 L Random Glucose 128 H Lactic Acid Calcium 6.4 L* Calcium Adj for Albumin 7.4 L* Total Bilirubin 0.3 AST 19 ALT 18 Alkaline Phosphatase 30 L Troponin I 0.03 Total Protein 5.0 L Albumin 2.4 L Urine Color Urine Clarity Urine pH Ur Specific [place] Urine Protein Urine Glucose (UA) Urine Ketones Urine Occult Blood Urine Nitrate Urine Bilirubin Urine Urobilinogen Ur Leukocyte Esterase Urine RBC Urine WBC Ur Squamous Epith Cells Urine Bacteria Hyaline Casts Urine Mucus Micro UA Comment Ur Microscopic Review Urine Culture Comments Blood Type Antibody Screen MTS Gel Crossmatch Blood Bank Comment Bld Prod Order Comment 07/25/18 07/25/18 07/25/18 03:05 03:45 04:35 WBC RBC Hgb Hct MCV MCH MCHC RDW Plt Count MPV Prelim Diff (Auto) Neut % (Auto) Lymph % (Auto) [place] % (Auto) Eos % (Auto) Baso % (Auto) Neut # (Auto) Lymph # (Auto) [place] # (Auto) Eos # (Auto) Baso # (Auto) WBC Differential Diff Scan Differential Comment Platelet Estimate Platelet Morphology [place] Cells Acanthocytes (Spur) Keratocytes PT INR APTT Puncture Site Patient Temperature O2 Saturation ABG pH ABG pCO2 ABG pO2 ABG HCO3 ABG O2 Content ABG Base Excess ABG Methemoglobin Tao Test Hemoglobin Carboxyhemoglobin O2 Delivery Device Vent Setting Inspired O2 Critical Value Sodium Potassium Chloride Carbon Dioxide Anion Gap BUN Creatinine Estimated GFR Random Glucose Lactic Acid 5.6 H* Calcium Calcium Adj for Albumin Total Bilirubin AST ALT Alkaline Phosphatase Troponin I Total Protein Albumin Urine Color Urine Clarity Urine pH Ur Specific [place] Urine Protein Urine Glucose (UA) Urine Ketones Urine Occult Blood Urine Nitrate Urine Bilirubin Urine Urobilinogen Ur Leukocyte Esterase Urine RBC Urine WBC Ur Squamous Epith Cells Urine Bacteria Hyaline Casts Urine Mucus Micro UA Comment Ur Microscopic Review Urine Culture Comments Blood Type Antibody Screen MTS Gel Crossmatch See Detail Blood Bank Comment Bld Prod Order Comment 07/25/18 07/25/18 07/25/18 04:52 05:00 05:04 WBC RBC Hgb Hct MCV MCH MCHC RDW Plt Count MPV Prelim Diff (Auto) Neut % (Auto) Lymph % (Auto) [place] % (Auto) Eos % (Auto) Baso % (Auto) Neut # (Auto) Lymph # (Auto) [place] # (Auto) Eos # (Auto) Baso # (Auto) WBC Differential Diff Scan Differential Comment Platelet Estimate Platelet Morphology [place] Cells Acanthocytes (Spur) Keratocytes PT INR APTT Puncture Site Right radial Patient Temperature 98.6 O2 Saturation 98 ABG pH 7.27 L* ABG pCO2 38 ABG pO2 441 H ABG HCO3 17 L ABG O2 Content 9.8 L ABG Base Excess -8.7 L ABG Methemoglobin 0.7 Tao Test Present Hemoglobin 6.2 L* Carboxyhemoglobin 1.1 O2 Delivery Device Ventilator Vent Setting See comments Inspired O2 100 Critical Value Yes Sodium Potassium Chloride Carbon Dioxide Anion Gap BUN Creatinine Estimated GFR Random Glucose Lactic Acid Calcium Calcium Adj for Albumin Total Bilirubin AST ALT Alkaline Phosphatase Troponin I Total Protein Albumin Urine Color Yellow Urine Clarity Hazy H Urine pH 5.0 Ur Specific [place]ray 1.014 Urine Protein 30 H Urine Glucose (UA) Negative Urine Ketones Negative Urine Occult Blood Large H Urine Nitrate Negative Urine Bilirubin Negative Urine Urobilinogen Less than 2 Ur Leukocyte Esterase Negative Urine RBC 19 H Urine WBC 2 Ur Squamous Epith Cells <1 Urine Bacteria Rare H Hyaline Casts 13 Urine Mucus Few H Micro UA Comment Cath-culture ind Ur Microscopic Review Not Reportable Urine Culture Comments Cath-cult indicated Blood Type Antibody Screen MTS Gel Crossmatch Blood Bank Comment Bld Prod Order Comment Impressions Chest X-Ray 07/25/18 00:00 CONCLUSION: 1. Tip of the sheath involving the right neck overlies the supraclavicular region. No pneumothorax. 2. Repositioned endotracheal tube. Thoracic Aorta CT 07/25/18 00:00 CONCLUSION: 1. Tip of the endotracheal tube within the origin of the right mainstem bronchus. 2. No dissection. 3. 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 I am not able to clearly identify the endoleak on this study, however, there is limited opacification of the aorta which would make identification of an endoleak difficult. 4. Hemodynamically significant stenoses involving the celiac, SMA, and renal arteries 5. Trace amount of ascites. Chest X-Ray 07/25/18 02:10 CONCLUSION: Tip of the endotracheal tube at the origin of the right mainstem bronchus. Assessment and Plan - Assessment (1) AAA (abdominal aortic aneurysm) without rupture Code(s): I71.4 - Abdominal aortic aneurysm, without rupture Status: Acute - Plan 83 yo male with critically low Hct, getting appropriately resuscitated. 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 I reviewed CT - no contrast opacification of infrarenal aorta (? heart failure) but the wall of the aorta is pristine and there is no evidence to suggest overt rupture. Additionally the endograft has good geometric apposition of the proximal and distal aspects. 1. Continue GI work-up for anemia. There is a very small possibility of aorto- enteric fistula with EVAR. Needs EGD and likely colonoscopy. The patient's daughter does not recall when his last colonoscopy was. 2. At some point, needs better imaging of abdominal aorta - CTA with better contrast timing, which may be related to underlying cardiac dysfunction. 3. Will follow closely. Discussed with daughter at bedside in the ED earlier this morning. Kenneth Lewis MD FACS FSVS air marshal [facility] - Heart and Vascular Surgery at [facility] [phone]
[2018-07-25] MEDS ORDERED: Calcium Chloride Inj 2 GM in Sodium Chlor 0.9% Inj 100 ML IV.SIG ONE (07:08)
[2018-07-25] MEDS ORDERED: Pantoprazole Inj 80 MG in Sodium Chlor 0.9% Inj 35 ML IV.SIG ONE (07:08)
--- NOTE | 2018-07-25 07:08 | P.PCN ---
Date of procedure: 07/25/18 Procedure: DATE: 07/25/18 CENTRAL LINE PLACEMENT: 8.5 Romanian introducer catheter placement right IJ INDICATION: Hemorrhagic shock CONSENT Informed consent for procedure was obtained from patient's after discussion of risks, benefits, alternatives. DESCRIPTION OF THE PROCEDURE Initially attempted placement Left IJ, however wire met resistance at ~8-10 cm. Directed attention to RIJ site. The patient was placed in supine position , mild Trendelenburg. The skin was cleansed with Chloraprep x3. Additional barrier precautions included large sterile drape, sterile gloves, sterile gown, face mask, and hat. 1 % lidocaine was used for local anesthesia. Under direct ultrasound guidance and on single attempt, the vein was accessed with an introducer needle. The guide wire was advanced. The 8.5 Introducer and dilator were advanced over the wire.. The guide wire and dilator were removed. Port had good return of dark venous blood and flushed easily with saline. The line was secured with 2.0 silk. A sterile dressing with antibiotic disc was applied. ESTIMATED BLOOD LOSS: Minimal COMPLICATIONS: No apparent complications. STAT chest x-ray demonstrated a kink of the line and the tip is at the supraclavicular region. The line does draw venous blood and flushed easily.
[2018-07-25] MEDS ORDERED: Sodium Chloride 0.9% 2 ML Flush PRN IV.FLUSH (07:25)
[2018-07-25] MEDS: Pantoprazole Inj 80 MG in Sodium Chlor 0.9% Inj 100 ML IV.CONT SCH ×2 (08:14→22:48)
--- NOTE | 2018-07-25 08:50 | P.HPCC ---
History of Present Illness Service: Critical care medicine Primary Care Physician: Ambar Chaudhary Chief Complaint: weakness History of Present Illness: 83-year-old male with past medical history of hypertension, coronary artery disease with prior CABG, ventricular tachycardia with prior AICD placed in 2012, atrial fibrillation on chronic anticoagulation with Eliquis, hypertension, hypothyroidism, obesity, abdominal aortic aneurysm with prior endovascular repair. His family states that he went on a cruise a couple of weeks ago and when he came back he felt generalized weakness and malaise. He had some upper respiratory symptoms and was prescribed azithromycin for 10 days. Over the last couple of days he has had confusion. Tonight he was going to the bathroom and slid to the floor with near syncope. Vitals were initially normal and he was transported by [facility] but in route he became agitated and complained of thirst. He arrived and was pale with systolic blood pressure in the 60s. He was intubated. Bedside abdominal ultrasound demonstrated abdominal aortic aneurysm. He was given 4 units of emergency release packed red blood cells. He was taken emergently to CT scan which demonstrated infrarenal endograft with enlargement of the [place] sac with suspected endoleak. Dr. Ty discussed with vascular surgery, Dr. Lewis. Patient was noted to have abnormal findings in the duodenum concerning for duodenitis. Dr Lewis recommended GI workup to determine source of bleeding followed by eventual CTA to better image the aorta, as the initial was limited by contrast timing (perhaps due to poor cardiac function.) Placed R IJ Introducer and transfused aggressively in the ED. - Diagnosis (1) Hemorrhagic shock (2) Acute blood loss anemia (3) Melena (4) Acute respiratory failure (5) RAVEN (acute kidney injury) (6) CKD (chronic kidney disease) stage 3, GFR 30-59 ml/min (7) Hypothyroidism Inpatient Certification: I certify that the inpatient services were ordered in accordance with Medicare regulations governing the order. This includes certification that hospital inpatient services are reasonable and necessary and in the case of services not specified as inpatient-only under 42 CFR 419.22(n), that they are appropriately provided as inpatient services in accordance to with the 2-midnight benchmark under 43 CFR 412.3(e) Review of Systems unobtainable due to endotracheal tube PMFSH - History History Provided By: Chain Dyer / EMT - Medical History Medical History: Medical History (Last Updated 07/25/18 @ 10:25 by Aliza Fonseca MD) Artificial cardiac pacemaker (Acute) A-fib Anemia CAD (coronary artery disease) Cardiac defibrillator in place Heart valve disease High cholesterol History of tobacco abuse Hypertension Hypothyroidism ICD (implantable cardioverter-defibrillator) in place Obesity Prostate cancer Psoriasis Squamous cell carcinoma of scalp V-tach - Surgical History Surgical History: Surgical History (Last Updated 07/25/18 @ 10:23 by Aliza Fonseca MD) H/O knee surgery History of abdominal aortic aneurysm (AAA) repair - Family History Family History: Family History (Last Updated 07/25/18 @ 10:26 by Aliza Fonseca MD) Father Alcoholism Cancer - Tobacco History Second Hand Smoke Exposure: No Tobacco Use In Past 30 Days: No Smoking Status: Unknown if ever smoked Smoking End Date: 42 years ago - Alcohol History How Often Do You Have a Drink Containing Alcohol: Never - Substance Use History Substance History: No History of Abuse - Travel History Recent Travel in the [place] Within the Last 8 Weeks: No Recent Travel Out of the Country Within the Last 8 Weeks: No - Immunization History Tetanus Immunization: <5 Years Medications and Allergies Active Medications: Active Medications Midazolam HCl (Versed Inj) 100 mg in 100 mls @ 2 mls/hr IV.CONT TITRATE PRN; Protocol PRN Reason: See protocol Last Admin: 07/25/18 08:06 Dose: 10 mg/hr, 10 mls/hr Fentanyl (Fentanyl 10 Mcg/Ml Premix Drip) 2,500 mcg in 250 mls @ 5 mls/hr IV.SIG TITRATE PRN; Protocol PRN Reason: Per Protocol Last Admin: 07/25/18 08:01 Dose: 250 mcg/hr, 25 mls/hr Sodium Chloride (Ns Inj) 250 mls @ 15 mls/hr IV.SIG ONCE ALLY Stop: 07/25/18 22:39 Pantoprazole Sodium 80 mg/ (Sodium Chloride) 100 mls @ 10 mls/hr IV.CONT CONT ALLY Last Admin: 07/25/18 08:14 Dose: 10 mls/hr Sodium Chloride (Ns Flush) 2 ml IV.FLUSH BID ALLY Sodium Chloride (Ns Flush) 2 ml IV.FLUSH PRN PRN PRN Reason: FLUSH AFTER USING IV ACCESS Allergies Allergy/AdvReac Type Severity Reaction Status Date / Time penicillin G Allergy Severe Anaphylaxis Verified 07/25/18 02:21 Home Medications Medication Instructions Recorded Confirmed Type amiodarone 200 mg PO DAILY 07/25/18 07/25/18 History apixaban [Eliquis] 2.5 mg PO BID 07/25/18 07/25/18 History aspirin [Aspir-Low] 81 mg PO DAILY 07/25/18 07/25/18 History calcium carbonate [Calcium 600] 1 tab PO DAILY 07/25/18 07/25/18 History carvedilol 25 mg PO BID 07/25/18 07/25/18 History furosemide 40 mg PO DAILY 07/25/18 07/25/18 History isosorbide mononitrate 60 mg PO DAILY 07/25/18 07/25/18 History levothyroxine 25 mcg PO DAILY 07/25/18 07/25/18 History omeprazole 20 mg PO DAILY 07/25/18 07/25/18 History potassium chloride 10 meq PO BID 07/25/18 07/25/18 History rosuvastatin [Crestor] 5 mg PO DAILY 07/25/18 07/25/18 History sacubitril-valsartan [Entresto] 1 tab PO BID 07/25/18 07/25/18 History Results - Labs CBC & Chem 7: 07/25/18 08:52 07/25/18 08:52 Labs: Short CBC 07/25/18 07/25/18 Range/Units 02:20 03:05 WBC 5.0 6.7 (4.0-11.0) th/mm3 Hgb 2.5 L* 5.7 L* D (13.0-17.0) gm/dL Hct 8.1 L* 17.8 L* (39.0-51.0) % Plt Count 57 L 50 L (150-450) th/mm3 BMP 07/25/18 02:20 Sodium 144 Potassium 4.7 Chloride 117 H Carbon Dioxide 15.4 L BUN 75 H Creatinine 2.74 H Calcium 6.4 L* Cardiac Enzymes 07/25/18 Range/Units 02:20 Troponin I 0.03 (0.02-0.05) ng/mL Liver Function 07/25/18 Range/Units 02:20 Total Bilirubin 0.3 (0.2-1.0) mg/dL AST 19 (15-37) U/L ALT 18 (12-78) U/L Alkaline Phosphatase 30 L (45-117) U/L Albumin 2.4 L (3.4-5.0) g/dL Urine 07/25/18 Range/Units 04:52 Urine Color Yellow (Yellw/Straw) Urine Clarity Hazy H (Clear) Urine pH 5.0 (5.0-8.5) Ur Specific [place] 1.014 (1.002-1.035) Urine Protein 30 H (Neg-Trace) mg/dL Urine Glucose (UA) Negative (Negative) mg/dL - Imaging Impressions Chest X-Ray 07/25/18 00:00 CONCLUSION: 1. Tip of the sheath involving the right neck overlies the supraclavicular region. No pneumothorax. 2. Repositioned endotracheal tube. Thoracic Aorta CT 07/25/18 00:00 CONCLUSION: 1. Tip of the endotracheal tube within the origin of the right mainstem bronchus. 2. No dissection. 3. Endograft involving the infrarenal abdominal aorta with continued enlargement of the [place] aneurysm sac suggesting an endoleak. I am not able to clearly identify the endoleak on this study, however, there is limited opacification of the aorta which would make identification of an endoleak difficult. 4. Hemodynamically significant stenoses involving the celiac, SMA, and renal arteries 5. Trace amount of ascites. Chest X-Ray 07/25/18 02:10 CONCLUSION: Tip of the endotracheal tube at the origin of the right mainstem bronchus. Exam Vital signs: Vital Signs 07/25/18 02:00 07/25/18 02:20 07/25/18 02:30 Temperature 97 F L Pulse Rate 67 61 Respiratory Rate 20 16 22 Blood Pressure 107/67 110/80 Pulse Oximetry 98 92 L 07/25/18 03:54 07/25/18 04:05 07/25/18 04:14 Temperature 97.7 F Pulse Rate 61 60 Respiratory Rate 16 Blood Pressure 100/53 L Pulse Oximetry 96 98 07/25/18 04:29 07/25/18 05:01 07/25/18 05:10 Temperature 97 F L Pulse Rate 65 63 60 Respiratory Rate 16 16 16 Blood Pressure 107/60 97/50 L 97/50 L Pulse Oximetry 98 93 L 98 07/25/18 05:13 07/25/18 05:16 07/25/18 06:11 Temperature 97 F L Pulse Rate 59 L 60 59 L Respiratory Rate 16 16 16 Blood Pressure 97/50 L 99/54 L 147/68 H Pulse Oximetry 98 07/25/18 06:23 07/25/18 06:25 07/25/18 06:52 Temperature 97.3 F L 97.6 F Pulse Rate 62 59 L 75 Respiratory Rate 16 16 14 Blood Pressure 145/60 H 145/64 H 128/83 Pulse Oximetry 96 98 07/25/18 06:55 07/25/18 07:00 07/25/18 07:46 Temperature Pulse Rate 61 Respiratory Rate 16 16 16 Blood Pressure Pulse Oximetry 96 100 Intake & Output 07/24/18 07/25/18 07/25/18 18:59 06:59 18:59 Intake Total 3251 / 3251 350 / 350 Output Total 525 / 525 Balance 2726 / 2726 350 / 350 Weight 99.79 kg Intake: IV 1251 / 1251 350 / 350 Versed Inj 100 mg In 100 ml @ 2 100 / 100 MG/HR 2 mls/hr IV.CONT TITRATE PRN Rx#:[id number] Vitamin K Inj 10 MG In NS Inj 51 / 51 50 ML @ 102 mls/hr IV.SIG ONCE ONE Rx#:[id number] Kcentra Inj 5,000 UNIT In Bag/ 200 / 200 Syringe 200 EACH @ 500 mls/hr IV.SIG ONCE ONE Rx#:[id number] NS Inj 1,000 ML @ Wide Open IV. 1000 / 1000 SIG BOLUS ONE Rx#:[id number] fentaNYL 10 mcg/mL Premix Drip 250 / 250 2,500 mcg In 250 ml @ 50 MCG/HR 5 mls/hr IV.SIG TITRATE PRN Rx #:[id number] Other 1999 Intake (Blood Product) Amt 0 / 0 Plasma Thawed 5 Day Acda Unit 0 / 0 [id number] Plt Pheresis S Leukoreduced 0 / 0 Unit [id number] Pre-Pooled Cryo Thawed 10units 0 / 0 Unit [id number] Rbc As-3 Leukoreduced Unit 0 / 0 [id number] Rbc As-3 Leukoreduced Unit 0 / 0 [id number] Rbc As-3 Leukoreduced Unit 0 / 0 [id number] Output: Urine Amount (Catheter) 525 / 525 Indwelling Urethral Catheter 525 / 525 Other: Other Intake Source Saline Solution Narrative: GENERAL: Elderly pale appearing male SKIN: Cool, poorly perfused. Ecchymosis overlying right anterior chest wall HEAD: Atraumatic. Normocephalic. EYES: Pupils equal and round, 2 mm. No scleral icterus. No injection or drainage. ENT: No nasal bleeding or discharge. Mucous membranes pink and moist. NECK: Trachea midline. No JVD. CARDIOVASCULAR: Paced rhythm rate in the 60s no murmurs rubs or gallops. RESPIRATORY: Orotracheally intubated. Occasional rhonchi. No rales or wheeze. GASTROINTESTINAL: Abdomen soft, unable to appreciate tenderness, rebound. Hypoactive bowel sounds. MUSCULOSKELETAL: Extremities without clubbing, cyanosis. Trace pedal edema. NEUROLOGICAL: Patient has been heavily sedated in the ED on fentanyl and Versed. He does move extremities spontaneously. Does not localize or follow commands. Caprini VTE Risk Assessment Caprini VTE Risk Assessment: Moderate/High Risk (score >= 2) VTE Pharmacological Exception Reason: Hemorrhage Caprini Risk Assessment Model: Point Value = 1 Point Value = 2 Point Value = 3 Point Value = 5 Age 41-60 Minor surgery BMI > 25 kg/m2 Swollen legs Varicose veins or History of unexplained or recurrent spontaneous Oral contraceptives or hormone replacement Sepsis (< 1 month) Serious lung disease, including pneumonia (< 1 month) Abnormal pulmonary function Acute myocardial infarction Congestive heart failure (< 1 month) History of inflammatory bowel disease Medical patient at bed rest Age 61-74 Arthroscopic surgery Major open surgery (> 45 min) Laparoscopic surgery (> 45 min) Malignancy Confined to bed (> 72 hours) Immobilizing plaster cast Central venous access Age >= 75 History of VTE Family history of VTE Factor V Leiden Prothrombin [id number] Lupus anticoagulant Anticardiolipin antibodies Elevated serum homocysteine Heparin-induced thrombocytopenia Other congenital or acquired thrombophilia Stroke (< 1 month) Elective arthroplasty Hip, pelvis, or leg fracture Acute spinal cord injury (< 1 month) Prophylaxis Regimen: Total Risk Factor Score Risk Level Prophylaxis Regimen 0-1 Low Early ambulation 2 Moderate Order ONE of the following: *Sequential Compression Device (SCD) *Heparin 5000 units SQ BID 3-4 Higher Order ONE of the following medications: *Heparin 5000 units SQ TID *Enoxaparin/Lovenox 40 mg SQ daily (WT < 150 kg, CrCl > 30 mL/min) *Enoxaparin/Lovenox 30 mg SQ daily (WT < 150 kg, CrCl > 10-29 mL/min) *Enoxaparin/Lovenox 30 mg SQ BID (WT < 150 kg, CrCl > 30 mL/min) AND/OR *Sequential Compression Device (SCD) 5 or more Highest Order ONE of the following medications: *Heparin 5000 units SQ TID (Preferred with Epidurals) *Enoxaparin/Lovenox 40 mg SQ daily (WT < 150 kg, CrCl > 30 mL/min) *Enoxaparin/Lovenox 30 mg SQ daily (WT < 150 kg, CrCl > 10-29 mL/min) *Enoxaparin/Lovenox 30 mg SQ BID (WT < 150 kg, CrCl > 30 mL/min) AND *Sequential Compression Device (SCD) Assessment and Plan - Problem List (1) Hemorrhagic shock Code(s): R57.8 - Other shock Status: Acute (2) Acute blood loss anemia Code(s): D62 - Acute posthemorrhagic anemia Status: Acute (3) Melena Code(s): K92.1 - Melena Status: Acute (4) Acute respiratory failure Code(s): J96.00 - Acute respiratory failure, unspecified whether with hypoxia or hypercapnia Status: Acute (5) RAVEN (acute kidney injury) Code(s): N17.9 - Acute kidney failure, unspecified Status: Acute (6) CKD (chronic kidney disease) stage 3, GFR 30-59 ml/min Code(s): N18.3 - Chronic kidney disease, stage 3 (moderate) Status: Chronic (7) Hypothyroidism Code(s): E03.9 - Hypothyroidism, unspecified Status: Chronic - Assessment and Plan Plan: NEURO: Fentanyl for sedation Versed for sedation, will wean drip. RASS -1 RESP: Acute respiratory failure Tobacco abuse Intubated in the emergency department. ET tube has been retracted and is satisfactory on follow-up imaging. PRVC. Ventilator bundle. CV: Hemorrhagic shock Atrial fibrillation on chronic anticoagulation with Eliquis Coronary artery disease with history of CABG Essential hypertension History of V. tach Abdominal aortic aneurysm with history of endovascular repair Pacemaker ICD in place Hyperlipidemia Introducer placed and blood product transfusion initiated with [place] rapid infuser. Hold eliquis GI: Obesity Melena OG tube to low and wall suction has no bloody or coffee-ground output. Melena was seen on rectal exam by ED physician, but patient has had no BMs in the ED. CT abd/pelvis-report with concern for endoleak. Will require additional aortic imaging to evaluate for endoleak or aortoenteric fistula. However, duodenum is abnormal on CT and could be source of bleeding. Vascular surgery evaluated, Dr. Lewis. Will proceed with GI workup. Discussed with Dr. Mon who will proceed with endoscopy. Protonix drip FEN/RENAL: RAVEN overlying CKD stage III Ortiz in place. Monitor intake and output as marker of perfusion. Monitor electrolytes and replace as indicated. HEME: Acute blood loss anemia overlying chronic anemia Coagulopathy Transfused 7 units packed red cells, 2 units FFP, 1 unit platelets, 1 unit cryo. Contacted pharmacy, initially Andexxa for Eliquis reversal was felt to not be available (later pharmacy called and said it is available if needed but had ordered KCentra 50 units/kg. Holding Eliquis. Vitamin K 10 mg IV. Calcium chloride 2 gram IV. External rewarming. Serial Hgb q6, f/u coags/ fibrinogen. ENDO: Hypothyroidism On Synthroid 25 mcg p.o. daily, will give Synthroid 12.5 mcg IV daily PROPH: SCDs for DVT prophylaxis. Pharmacology DVT prophylaxis is contraindicated due to active hemorrhage. Protonix drip as per above. ACCESS: RIJ introducer placed 07/25/18 Discussed with patient's family. is the next of kin. Family largely defers to daughter Bre Varghese who is a nurse. She can be reached at . She [place] of [place] but expects to arrive at 6 PM on 07/25/18. Family is in agreement that he would not want CPR if it came to the point of pulseless arrest. They do.feel that he would want workup to determine the source of bleeding. If the source is something "easily corrected" they would like to proceed with necessary procedures. If it required surgical intervention they would likely transition to comfort measures as he is a poor surgical candidate and they do not feel that he would want to endure the morbidity of surgery. His alternate code intubation only. Discussed with Dr. Gaston Patient is critically ill with hemorrhagic shock requiring emergent placement of vascular access and large-volume transfusion of blood product. He is at high risk for further deterioration and . Critical care time 95 minutes exclusive of separately billable procedures.
[2018-07-25] MEDS ORDERED: Sodium Chloride 0.9% 2 ML Flush BID IV.FLUSH SCH (09:00)
[2018-07-25 09:34] LABS: Hematocrit 24.4 % (39.0-51.0); Hemoglobin 8.2 gm/dL (13.0-17.0); Mean Corpuscular HGB Conc 33.9 % (32.0-36.0); Mean Corpuscular Hemoglobin 31.2 pg (27.0-34.0); Mean Corpuscular Volume 92.2 fL (80.0-100.0); Mean Platelet Volume 9.9 fL (7.0-11.0); Platelet Count 76 th/mm3 (150-450); Red Blood Count 2.64 mil/mm3 (4.50-5.90); Red Cell Distribution Width 16.5 % (11.6-17.2); White Blood Count 8.5 th/mm3 (4.0-11.0)
[2018-07-25 09:42] LABS: INR 1.2 Ratio; Prothrombin Time 12.5 sec (9.8-11.6)
[2018-07-25 10:13] LABS: Calcium 7.7 mg/dL (8.5-10.1); Carbon Dioxide 19.3 meq/L (21.0-32.0); Potassium 3.8 meq/L (3.5-5.1)
[2018-07-25] MEDS ORDERED: Bisacodyl 10 MG Supp RECTAL PRN (10:30)
--- NOTE | 2018-07-25 13:26 | P.CONGI ---
History of Present Illness Consult date: 07/25/18 Consult reason: GI bleed Chief complaint: hemorrhagic shock, GI bleed, respitory failure History of Present Illness: This is an 83-year-old patient who came to the emergency room at [facility] with multiple near syncopal episodes. Patient has significant medical history atrial fibrillation, cardiac pacemaker, defibrillator, CAD, coronary artery disease, high cholesterol, hypertension, hypothyroidism, prostate cancer and psoriasis. Surgical history significant for knee surgery and repair of abdominal aortic aneurysm. Patient was found by EMS to be extremely hypotensive with a systolic of 60. Upon arrival to ER, hemoglobin noted to be 2.5 hematocrit 8.1. Patient is currently intubated and mechanically ventilated. HPI obtained from bedside RN and documentation. Patient received 7 units of packed RBCs, 1 unit of cryoprecipitate, 1 unit of platelets, 1 unit of fresh frozen plasma and vitamin K. This a.m. hemoglobin 8.2 hematocrit 24.4. Of note, patient was previously on Eliquis for atrial fibrillation. Last known dose not known. Review of Systems unobtainable due to endotracheal tube, other PMFSH - History History Provided By: Hand Blocker / EMT - Medical History Medical History: Medical History (Last Updated 07/25/18 @ 10:25 by Aliza Fonseca MD) Artificial cardiac pacemaker (Acute) A-fib Anemia CAD (coronary artery disease) Cardiac defibrillator in place Heart valve disease High cholesterol History of tobacco abuse Hypertension Hypothyroidism ICD (implantable cardioverter-defibrillator) in place Obesity Prostate cancer Psoriasis Squamous cell carcinoma of scalp V-tach - Surgical History Surgical History: Surgical History (Last Updated 07/25/18 @ 10:23 by Aliza Fonseca MD) H/O knee surgery History of abdominal aortic aneurysm (AAA) repair - Family History Family History: Family History (Last Updated 07/25/18 @ 10:26 by Aliza Fonseca MD) Father Alcoholism Cancer - Tobacco History Second Hand Smoke Exposure: No Tobacco Use In Past 30 Days: No Smoking Status: Unknown if ever smoked Smoking End Date: 42 years ago - Alcohol History How Often Do You Have a Drink Containing Alcohol: Never - Substance Use History Substance History: No History of Abuse - Travel History Recent Travel in the [place] Within the Last 8 Weeks: No Recent Travel Out of the Country Within the Last 8 Weeks: No - Immunization History Tetanus Immunization: <5 Years Medications and Allergies Active Medications: Active Medications Al Hydroxide/Mg Hydroxide (Milk Of Magnesia Liq) 30 ml PO Q12H PRN PRN Reason: Mild Constipation Albuterol (Albuterol Neb (Prn)) 2.5 mg NEB Q2HR NEB PRN PRN Reason: SHORTNESS OF BREATH/WHEEZING Bisacodyl (Dulcolax Supp) 10 mg RECTAL DAILY PRN PRN Reason: SEVERE CONSITIPATION Chlorhexidine Gluconate (Chlorhexidine 2% Cloth) 3 pack TOPICAL DAILY@0400 ALLY Stop: 07/31/18 03:59 Chlorhexidine Gluconate (Chlorhexidine 2% Cloth) 3 pack TOPICAL DAILY@0400 PRN PRN Reason: Extra cloth needed Stop: 07/31/18 03:59 Chlorhexidine Gluconate (Peridex 0.12% Oral Kit) 15 ml OROPHARYNG BID@0800, 2000 ALLY Midazolam HCl (Versed Inj) 100 mg in 100 mls @ 2 mls/hr IV.CONT TITRATE PRN; Protocol PRN Reason: See protocol Last Titration: 07/25/18 09:56 Dose: 0 mg/hr, 0 mls/hr Fentanyl (Fentanyl 10 Mcg/Ml Premix Drip) 2,500 mcg in 250 mls @ 5 mls/hr IV.SIG TITRATE PRN; Protocol PRN Reason: Per Protocol Last Titration: 07/25/18 09:56 Dose: 150 mcg/hr, 15 mls/hr Sodium Chloride (Ns Inj) 250 mls @ 15 mls/hr IV.SIG ONCE ALLY Stop: 07/25/18 22:39 Pantoprazole Sodium 80 mg/ (Sodium Chloride) 100 mls @ 10 mls/hr IV.CONT CONT [facility] Last Admin: 07/25/18 08:14 Dose: 10 mls/hr Lactulose (Lactulose Liq) 30 ml PO DAILY PRN PRN Reason: SEVERE CONSITIPATION Levothyroxine Sodium (Synthroid Inj) 12.5 mcg IV.PUSH DAILY@0600 ALLY Midazolam HCl (Versed Inj) 2 mg IV.PUSH Q1H PRN PRN Reason: SEDATION Miscellaneous Medication () 1 each OROPHARYNG 0000,0400,1200,1600 ALLY Ondansetron HCl (Zofran Inj) 4 mg IV.PUSH Q6H PRN PRN Reason: NAUSEA OR VOMITING Senna/Docusate Sodium (Angela-Colace) 1 tab PO BID [facility] Sennosides (Senokot) 17.2 mg PO Q12H PRN PRN Reason: Moderate Constipation Sodium Chloride (Ns Flush) 2 ml IV.FLUSH PRN PRN PRN Reason: FLUSH AFTER USING IV ACCESS Sodium Chloride (Ns Flush) 2 ml IV.FLUSH BID [facility] Allergies Allergy/AdvReac Type Severity Reaction Status Date / Time penicillin G Allergy Severe Anaphylaxis Verified 07/25/18 02:21 Home Medications Medication Instructions Recorded Confirmed Type amiodarone 200 mg PO DAILY 07/25/18 07/25/18 History apixaban [Eliquis] 2.5 mg PO BID 07/25/18 07/25/18 History aspirin [Aspir-Low] 81 mg PO DAILY 07/25/18 07/25/18 History calcium carbonate [Calcium 600] 1 tab PO DAILY 07/25/18 07/25/18 History carvedilol 25 mg PO BID 07/25/18 07/25/18 History furosemide 40 mg PO DAILY 07/25/18 07/25/18 History isosorbide mononitrate 60 mg PO DAILY 07/25/18 07/25/18 History levothyroxine 25 mcg PO DAILY 07/25/18 07/25/18 History omeprazole 20 mg PO DAILY 07/25/18 07/25/18 History potassium chloride 10 meq PO BID 07/25/18 07/25/18 History rosuvastatin [Crestor] 5 mg PO DAILY 07/25/18 07/25/18 History sacubitril-valsartan [Entresto] 1 tab PO BID 07/25/18 07/25/18 History Exam Vital signs: Vital Signs 07/25/18 02:00 07/25/18 02:20 07/25/18 02:30 Temperature 97 F L Pulse Rate 67 61 Respiratory Rate 20 16 22 Blood Pressure 107/67 110/80 Pulse Oximetry 98 92 L 07/25/18 03:54 07/25/18 04:05 07/25/18 04:14 Temperature 97.7 F Pulse Rate 61 60 Respiratory Rate 16 Blood Pressure 100/53 L Pulse Oximetry 96 98 07/25/18 04:29 07/25/18 05:01 07/25/18 05:10 Temperature 97 F L Pulse Rate 65 63 60 Respiratory Rate 16 16 16 Blood Pressure 107/60 97/50 L 97/50 L Pulse Oximetry 98 93 L 98 07/25/18 05:13 07/25/18 05:16 07/25/18 06:11 Temperature 97 F L Pulse Rate 59 L 60 59 L Respiratory Rate 16 16 16 Blood Pressure 97/50 L 99/54 L 147/68 H Pulse Oximetry 98 07/25/18 06:23 07/25/18 06:25 07/25/18 06:52 Temperature 97.3 F L 97.6 F Pulse Rate 62 59 L 75 Respiratory Rate 16 16 14 Blood Pressure 145/60 H 145/64 H 128/83 Pulse Oximetry 96 98 07/25/18 06:55 07/25/18 07:00 07/25/18 07:46 Temperature Pulse Rate 61 Respiratory Rate 16 16 16 Blood Pressure Pulse Oximetry 96 100 07/25/18 07:52 07/25/18 08:00 07/25/18 08:52 Temperature 97.5 F L Pulse Rate 59 L 59 L 59 L Respiratory Rate 16 16 17 Blood Pressure 121/61 135/65 Pulse Oximetry 97 92 L 100 07/25/18 09:00 07/25/18 09:52 07/25/18 10:00 Temperature Pulse Rate 59 L 59 L 59 L Respiratory Rate 16 16 17 Blood Pressure 140/69 Pulse Oximetry 98 100 99 07/25/18 10:52 07/25/18 11:00 07/25/18 12:30 Temperature Pulse Rate 59 L 59 L Respiratory Rate 23 11 L 17 Blood Pressure 112/58 L Pulse Oximetry 100 Intake & Output 07/24/18 07/25/18 07/25/18 18:59 06:59 18:59 Intake Total 3251 / 3251 385 / 385 Output Total 525 / 525 795 / 795 Balance 2726 / 2726 -410 / -410 Weight 99.79 kg Intake: IV 1251 / 1251 385 / 385 Versed Inj 100 mg In 100 ml @ 2 100 / 100 MG/HR 2 mls/hr IV.CONT TITRATE PRN Rx#:[id number] Protonix Inj 80 MG In NS Inj 35 35 / 35 ML @ 420 mls/hr IV.SIG BOLUS ONE Rx#:[id number] Vitamin K Inj 10 MG In NS Inj 51 / 51 50 ML @ 102 mls/hr IV.SIG ONCE ONE Rx#:[id number] Kcentra Inj 5,000 UNIT In Bag/ 200 / 200 Syringe 200 EACH @ 500 mls/hr IV.SIG ONCE ONE Rx#:[id number] NS Inj 1,000 ML @ Wide Open IV. 1000 / 1000 SIG BOLUS ONE Rx#:[id number] fentaNYL 10 mcg/mL Premix Drip 250 / 250 2,500 mcg In 250 ml @ 50 MCG/HR 5 mls/hr IV.SIG TITRATE PRN Rx #:[id number] Other 1999 Intake (Blood Product) Amt 0 / 0 Plasma Thawed 5 Day Acda Unit 0 / 0 [id number] Plt Pheresis S Leukoreduced 0 / 0 Unit [id number] Pre-Pooled Cryo Thawed 10units 0 / 0 Unit [id number] Rbc As-3 Leukoreduced Unit 0 / 0 [id number] Rbc As-3 Leukoreduced Unit 0 / 0 [id number] Rbc As-3 Leukoreduced Unit 0 / 0 [id number] Output: Urine 150 / 150 Urine Amount (Catheter) 525 / 525 645 / 645 Indwelling Urethral Catheter 525 / 525 645 / 645 Other: Other Intake Source Saline Solution Date of Last Bowel Movement 07/25/18 - Routine HEENT Exam Head: Present: normocephalic - Routine Respiratory Exam Present: patient mechanically ventilated, CTA bilaterally - Routine Cardiovascular Exam Present: irregularly irregular - Routine Abdominal Exam Present: soft, normoactive bowel sounds. Absent: distended, guarding, firm, rigid - Routine Extremities Exam Present: pulses intact. Absent: edema - Routine Skin Exam Present: dry, warm - Routine Neurological Exam Sedated and mechanically ventilated Results - Labs CBC & Chem 7: 07/25/18 08:52 07/25/18 08:52 Labs: Laboratory Results - last 24 hr 07/25/18 07/25/18 07/25/18 02:08 02:20 02:20 WBC 5.0 RBC 0.76 L Hgb 2.5 L* Hct 8.1 L* MCV 106.2 H MCH 33.3 MCHC 31.3 L RDW 21.2 H Plt Count 57 L MPV 11.6 H Prelim Diff (Auto) Slide review pending Neut % (Auto) 80.3 H Lymph % (Auto) 10.6 [place] % (Auto) 8.4 H Eos % (Auto) 0.4 Baso % (Auto) 0.3 Neut # (Auto) 4.0 Lymph # (Auto) 0.5 L [place] # (Auto) 0.4 Eos # (Auto) 0.0 Baso # (Auto) 0.0 WBC Differential . Diff Scan Auto diff confirmed Differential Comment . Platelet Estimate Low L Platelet Morphology Enlarged H Moore Cells Acanthocytes (Spur) Occ H Keratocytes Occ H PT INR APTT Fibrinogen Puncture Site Patient Temperature O2 Saturation ABG pH ABG pCO2 ABG pO2 ABG HCO3 ABG O2 Content ABG Base Excess ABG Methemoglobin Tao Test Hemoglobin Carboxyhemoglobin O2 Delivery Device Vent Setting Inspired O2 Critical Value Sodium Potassium Chloride Carbon Dioxide Anion Gap BUN Creatinine Estimated GFR Random Glucose Lactic Acid Calcium Calcium Adj for Albumin Total Bilirubin AST ALT Alkaline Phosphatase Troponin I Total Protein Albumin Urine Color Urine Clarity Urine pH Ur Specific Cook Urine Protein Urine Glucose (UA) Urine Ketones Urine Occult Blood Urine Nitrate Urine Bilirubin Urine Urobilinogen Ur Leukocyte Esterase Urine RBC Urine WBC Ur Squamous Epith Cells Urine Bacteria Hyaline Casts Urine Mucus Micro UA Comment Ur Microscopic Review Urine Culture Comments Blood Type A Positive Antibody Screen Negative MTS Gel Crossmatch See Detail Blood Bank Comment Bld Prod Order Comment 07/25/18 07/25/18 07/25/18 02:20 02:20 03:05 WBC 6.7 RBC 1.80 L Hgb 5.7 L* D Hct 17.8 L* MCV 98.9 D MCH 31.6 MCHC 32.0 RDW 18.1 H D Plt Count 50 L MPV 11.4 H Prelim Diff (Auto) Slide review pending Neut % (Auto) 84.6 H Lymph % (Auto) 9.1 [place] % (Auto) 4.4 Eos % (Auto) 0.2 Baso % (Auto) 1.7 Neut # (Auto) 5.7 Lymph # (Auto) 0.6 L [place] # (Auto) 0.3 Eos # (Auto) 0.0 Baso # (Auto) 0.1 WBC Differential . Diff Scan Auto diff confirmed Differential Comment . Platelet Estimate Low L Platelet Morphology Enlarged H Moore Cells 1+ H Acanthocytes (Spur) Occ H Keratocytes PT 15.3 H INR 1.5 APTT 38.7 H Fibrinogen Puncture Site Patient Temperature O2 Saturation ABG pH ABG pCO2 ABG pO2 ABG HCO3 ABG O2 Content ABG Base Excess ABG Methemoglobin Tao Test Hemoglobin Carboxyhemoglobin O2 Delivery Device Vent Setting Inspired O2 Critical Value Sodium 144 Potassium 4.7 Chloride 117 H Carbon Dioxide 15.4 L Anion Gap 12 BUN 75 H Creatinine 2.74 H Estimated GFR 22 L Random Glucose 128 H Lactic Acid Calcium 6.4 L* Calcium Adj for Albumin 7.4 L* Total Bilirubin 0.3 AST 19 ALT 18 Alkaline Phosphatase 30 L Troponin I 0.03 Total Protein 5.0 L Albumin 2.4 L Urine Color Urine Clarity Urine pH Ur Specific Cook Urine Protein Urine Glucose (UA) Urine Ketones Urine Occult Blood Urine Nitrate Urine Bilirubin Urine Urobilinogen Ur Leukocyte Esterase Urine RBC Urine WBC Ur Squamous Epith Cells Urine Bacteria Hyaline Casts Urine Mucus Micro UA Comment Ur Microscopic Review Urine Culture Comments Blood Type Antibody Screen MTS Gel Crossmatch Blood Bank Comment Bld Prod Order Comment 07/25/18 07/25/18 07/25/18 03:05 03:45 04:35 WBC RBC Hgb Hct MCV MCH MCHC RDW Plt Count MPV Prelim Diff (Auto) Neut % (Auto) Lymph % (Auto) [place] % (Auto) Eos % (Auto) Baso % (Auto) Neut # (Auto) Lymph # (Auto) [place] # (Auto) Eos # (Auto) Baso # (Auto) WBC Differential Diff Scan Differential Comment Platelet Estimate Platelet Morphology Moore Cells Acanthocytes (Spur) Keratocytes PT INR APTT Fibrinogen Puncture Site Patient Temperature O2 Saturation ABG pH ABG pCO2 ABG pO2 ABG HCO3 ABG O2 Content ABG Base Excess ABG Methemoglobin Tao Test Hemoglobin Carboxyhemoglobin O2 Delivery Device Vent Setting Inspired O2 Critical Value Sodium Potassium Chloride Carbon Dioxide Anion Gap BUN Creatinine Estimated GFR Random Glucose Lactic Acid 5.6 H* Calcium Calcium Adj for Albumin Total Bilirubin AST ALT Alkaline Phosphatase Troponin I Total Protein Albumin Urine Color Urine Clarity Urine pH Ur Specific Cook Urine Protein Urine Glucose (UA) Urine Ketones Urine Occult Blood Urine Nitrate Urine Bilirubin Urine Urobilinogen Ur Leukocyte Esterase Urine RBC Urine WBC Ur Squamous Epith Cells Urine Bacteria Hyaline Casts Urine Mucus Micro UA Comment Ur Microscopic Review Urine Culture Comments Blood Type Antibody Screen MTS Gel Crossmatch See Detail Blood Bank Comment Bld Prod Order Comment 07/25/18 07/25/18 07/25/18 04:52 05:00 05:04 WBC RBC Hgb Hct MCV MCH MCHC RDW Plt Count MPV Prelim Diff (Auto) Neut % (Auto) Lymph % (Auto) [place] % (Auto) Eos % (Auto) Baso % (Auto) Neut # (Auto) Lymph # (Auto) [place] # (Auto) Eos # (Auto) Baso # (Auto) WBC Differential Diff Scan Differential Comment Platelet Estimate Platelet Morphology Moore Cells Acanthocytes (Spur) Keratocytes PT INR APTT Fibrinogen Puncture Site Right radial Patient Temperature 98.6 O2 Saturation 98 ABG pH 7.27 L* ABG pCO2 38 ABG pO2 441 H ABG HCO3 17 L ABG O2 Content 9.8 L ABG Base Excess -8.7 L ABG Methemoglobin 0.7 Tao Test Present Hemoglobin 6.2 L* Carboxyhemoglobin 1.1 O2 Delivery Device Ventilator Vent Setting See comments Inspired O2 100 Critical Value Yes Sodium Potassium Chloride Carbon Dioxide Anion Gap BUN Creatinine Estimated GFR Random Glucose Lactic Acid Calcium Calcium Adj for Albumin Total Bilirubin AST ALT Alkaline Phosphatase Troponin I Total Protein Albumin Urine Color Yellow Urine Clarity Hazy H Urine pH 5.0 Ur Specific Cook 1.014 Urine Protein 30 H Urine Glucose (UA) Negative Urine Ketones Negative Urine Occult Blood Large H Urine Nitrate Negative Urine Bilirubin Negative Urine Urobilinogen Less than 2 Ur Leukocyte Esterase Negative Urine RBC 19 H Urine WBC 2 Ur Squamous Epith Cells <1 Urine Bacteria Rare H Hyaline Casts 13 Urine Mucus Few H Micro UA Comment Cath-culture ind Ur Microscopic Review Not Reportable Urine Culture Comments Cath-cult indicated Blood Type Antibody Screen MTS Gel Crossmatch Blood Bank Comment Bld Prod Order Comment 07/25/18 07/25/18 07/25/18 06:28 08:52 08:52 WBC 8.5 RBC 2.64 L Hgb 8.2 L D Hct 24.4 L MCV 92.2 D MCH 31.2 MCHC 33.9 RDW 16.5 Plt Count 76 L D MPV 9.9 Prelim Diff (Auto) Neut % (Auto) Lymph % (Auto) [place] % (Auto) Eos % (Auto) Baso % (Auto) Neut # (Auto) Lymph # (Auto) [place] # (Auto) Eos # (Auto) Baso # (Auto) WBC Differential Diff Scan Differential Comment Platelet Estimate Platelet Morphology Jerry Cells Acanthocytes (Spur) Keratocytes PT 12.5 H INR 1.2 APTT Fibrinogen Puncture Site Patient Temperature O2 Saturation ABG pH ABG pCO2 ABG pO2 ABG HCO3 ABG O2 Content ABG Base Excess ABG Methemoglobin Tao Test Hemoglobin Carboxyhemoglobin O2 Delivery Device Vent Setting Inspired O2 Critical Value Sodium Potassium Chloride Carbon Dioxide Anion Gap BUN Creatinine Estimated GFR Random Glucose Lactic Acid 2.1 H Calcium Calcium Adj for Albumin Total Bilirubin AST ALT Alkaline Phosphatase Troponin I Total Protein Albumin Urine Color Urine Clarity Urine pH Ur Specific Cook Urine Protein Urine Glucose (UA) Urine Ketones Urine Occult Blood Urine Nitrate Urine Bilirubin Urine Urobilinogen Ur Leukocyte Esterase Urine RBC Urine WBC Ur Squamous Epith Cells Urine Bacteria Hyaline Casts Urine Mucus Micro UA Comment Ur Microscopic Review Urine Culture Comments Blood Type Antibody Screen [facility] Blood Bank Comment Bld Prod Order Comment 07/25/18 07/25/18 07/25/18 08:52 08:52 08:52 WBC RBC Hgb Hct MCV MCH MCHC RDW Plt Count MPV Prelim Diff (Auto) Neut % (Auto) Lymph % (Auto) [place] % (Auto) Eos % (Auto) Baso % (Auto) Neut # (Auto) Lymph # (Auto) [place] # (Auto) Eos # (Auto) Baso # (Auto) WBC Differential Diff Scan Differential Comment Platelet Estimate Platelet Morphology Jerry Cells Acanthocytes (Spur) Keratocytes PT INR APTT 29.2 D Fibrinogen 268 Puncture Site Patient Temperature O2 Saturation ABG pH ABG pCO2 ABG pO2 ABG HCO3 ABG O2 Content ABG Base Excess ABG Methemoglobin Tao Test Hemoglobin Carboxyhemoglobin O2 Delivery Device Vent Setting Inspired O2 Critical Value Sodium 142 Potassium 3.8 D Chloride 114 H Carbon Dioxide 19.3 L Anion Gap 9 BUN 68 H Creatinine 2.45 H Estimated GFR 25 L Random Glucose 104 Lactic Acid Calcium 7.7 L D Calcium Adj for Albumin Total Bilirubin AST ALT Alkaline Phosphatase Troponin I Total Protein Albumin Urine Color Urine Clarity Urine pH Ur Specific Cook Urine Protein Urine Glucose (UA) Urine Ketones Urine Occult Blood Urine Nitrate Urine Bilirubin Urine Urobilinogen Ur Leukocyte Esterase Urine RBC Urine WBC Ur Squamous Epith Cells Urine Bacteria Hyaline Casts Urine Mucus Micro UA Comment Ur Microscopic Review Urine Culture Comments Blood Type Antibody Screen [employer] Blood Bank Comment Bld Prod Order Comment 07/25/18 10:47 WBC RBC Hgb Hct MCV MCH MCHC RDW Plt Count MPV Prelim Diff (Auto) Neut % (Auto) Lymph % (Auto) [place] % (Auto) Eos % (Auto) Baso % (Auto) Neut # (Auto) Lymph # (Auto) [place] # (Auto) Eos # (Auto) Baso # (Auto) WBC Differential Diff Scan Differential Comment Platelet Estimate Platelet Morphology Jerry Cells Acanthocytes (Spur) Keratocytes PT INR APTT Fibrinogen Puncture Site Patient Temperature O2 Saturation ABG pH ABG pCO2 ABG pO2 ABG HCO3 ABG O2 Content ABG Base Excess ABG Methemoglobin Tao Test Hemoglobin Carboxyhemoglobin O2 Delivery Device Vent Setting Inspired O2 Critical Value Sodium Potassium Chloride Carbon Dioxide Anion Gap BUN Creatinine Estimated GFR Random Glucose Lactic Acid 1.3 Calcium Calcium Adj for Albumin Total Bilirubin AST ALT Alkaline Phosphatase Troponin I Total Protein Albumin Urine Color Urine Clarity Urine pH Ur Specific Cook Urine Protein Urine Glucose (UA) Urine Ketones Urine Occult Blood Urine Nitrate Urine Bilirubin Urine Urobilinogen Ur Leukocyte Esterase Urine RBC Urine WBC Ur Squamous Epith Cells Urine Bacteria Hyaline Casts Urine Mucus Micro UA Comment Ur Microscopic Review Urine Culture Comments Blood Type Antibody Screen MTS Gel Crossmatch Blood Bank Comment Bld Prod Order Comment - Imaging Impressions Chest X-Ray 07/25/18 00:00 CONCLUSION: 1. Tip of the sheath involving the right neck overlies the supraclavicular region. No pneumothorax. 2. Repositioned endotracheal tube. Thoracic Aorta CT 07/25/18 00:00 CONCLUSION: 1. Tip of the endotracheal tube within the origin of the right mainstem bronchus. 2. No dissection. 3. Endograft involving the infrarenal abdominal aorta with continued enlargement of the eyak aneurysm sac suggesting an endoleak. I am not able to clearly identify the endoleak on this study, however, there is limited opacification of the aorta which would make identification of an endoleak difficult. 4. Hemodynamically significant stenoses involving the celiac, SMA, and renal arteries 5. Trace amount of ascites. Chest X-Ray 07/25/18 02:10 CONCLUSION: Tip of the endotracheal tube at the origin of the right mainstem bronchus. Assessment and Plan (1) GI bleed Status: Acute Code(s): K92.2 - Gastrointestinal hemorrhage, unspecified - Plan This is an 83-year-old patient who came to the emergency room at [facility] with multiple near syncopal episodes. Patient has significant medical history atrial fibrillation, cardiac pacemaker, defibrillator, CAD, coronary artery disease, high cholesterol, hypertension, hypothyroidism, prostate cancer and psoriasis. Surgical history significant for knee surgery and repair of abdominal aortic aneurysm. Patient was found by EMS to be extremely hypotensive with a systolic of 60. Upon arrival to ER, hemoglobin noted to be 2.5 hematocrit 8.1. Patient is currently intubated and mechanically ventilated. HPI obtained from bedside RN and documentation. Patient received 7 units of packed RBCs, 1 unit of cryoprecipitate, 1 unit of platelets, 1 unit of fresh frozen plasma and vitamin K. This a.m. hemoglobin 8.2 hematocrit 24.4. Of note, patient was previously on Eliquis for atrial fibrillation. Last known dose not known. Plan -N.p.o. -Orogastric tube to low intermittent wall suction -EGD at bedside -Bleeding scan nuclear medicine -Continue pantoprazole -Monitor for bleeding -Transfuse if needed -Monitor hemoglobin and hematocrit closely -Supportive care -Further recommendations to follow This patient has been seen by myself and Dr. Meyer and this note is written on his behalf - Attending Attestation Dr. Meyer
--- NOTE | 2018-07-25 13:27 | GIPROC ---
[facility] [address] [facility]. [facility], [address] EGD PROCEDURE REPORT EXAM DATE: 07/25/2018 PATIENT NAME: Kenneth Mercedes MR #: [id number] BIRTHDATE: 1935 ATTENDING: Josesito Meyer MD ORDER #: [id number] GAMING ASSOCIATE: Abdullahi Alvarez and Carla Penaloza STATUS: inpatient INDICATIONS: The patient is a 83 yr old male here for an EGD due to acute post hemorrhagic anemia PROCEDURE PERFORMED: EGD, diagnostic MEDICATIONS: Per Anesthesia and None. TOPICAL ANESTHETIC: none CONSENT: The patient understands the risks and benefits of the procedure and understands that these risks include, but are not limited to: sedation, allergic reaction, infection, perforation and/or bleeding. Alternative means of evaluation and treatment include, among others: physical exam, x-rays, and/or surgical intervention. The patient elects to proceed with this endoscopic procedure. medical equipment was checked for proper function. Hand hygiene and appropriate measures for infection prevention was taken. After the risks, benefits and alternatives of the procedure were thoroughly explained, Informed consent was verified, confirmed and timeout was successfully executed by the treatment team. The patient was anesthetized with topical anesthesia and the Pentax [id number] endoscope was introduced through the mouth and advanced to the third portion of the duodenum. Retroflexed views revealed a hiatal hernia The gastroscope was then slowly withdrawn and removed. ESOPHAGUS: The mucosa of the esophagus appeared normal. STOMACH: The mucosa of the stomach appeared normal. DUODENUM: The duodenal mucosa appeared normal in the entire duodenum. ADVERSE EVENTS: There were no complications. IMPRESSIONS: 1. The esophagus appeared normal 2. The mucosa of the stomach appeared normal 3. Normal duodenal mucosa in the entire duodenum 4. Retroflexed views revealed a hiatal hernia RECOMMENDATIONS: Monitor H/H Bleeding Scan PATIENT CONDITION: stable DISPOSITION: Inpatient REPEAT EXAM: Return as needed for EGD Josesito Meyer MD eSigned: Josseito Meyer MD 07/25/2018 1:26 PM cc: PATIENT NAME: Kenneth Mercedes MR#: [id number]
--- NOTE | 2018-07-25 16:59 | NM ---
EXAM DATE: 07/25/2018 4:55 PM EST AGE/SEX: 83 years / Male INDICATIONS: Blood in stool. CLINICAL DATA: This is the patient's initial encounter. Patient reports that signs and symptoms have been present for 1 day and indicates a pain score of 0/10. MEDICAL/SURGICAL HISTORY: Anemia. Carcinoma, prostatic. Hypertension. Abdominal aortic aneury sm repair. COMPARISON: No prior exams available for comparison. TECHNIQUE: Following the modified in vitro labeling of autologous red cells, dynamic continuous image s were acquired for two hours. ?? DOSE: 21.7 mCi Tc 99m Ultratag Labeled Red Blood Cells IV IMAGING TIME: 2 hr FINDINGS: Biodistribution: There is a very good labeling of red cells without significant uptake in the gastri c wall. There is good delineation of the blood pool of the spleen and abdominal vessels. Bleeding: No episodes of active GI bleeding are observed during two hours of continuous observation . CONCLUSION: 1. No evidence of active bleeding. Electronically signed by: Eriberto Macedo MD 07/25/2018 4:58 PM EST
[2018-07-25] MEDS: Oral Hygiene Kit OROPHARYNG SCH ×2 (18:04→18:05)
[2018-07-25] MEDS: Sod Chloride 0.9% Inj 1,000 ML IV.CONT SCH (19:42)
--- NOTE | 2018-07-25 20:01 | ECG ---
Date Performed: 07/25/2018 Time Performed: 02:43:19 PTAGE: 83 years EKG: UNCERTAIN REGULAR RHYTHM INTRAVENTRICULAR CONDUCTION DELAY ABNORMAL ECG PREVIOUS TRACING : 11/27/2013 07.15 Since the previous tracing, no significant change noted DOCTOR: Galilea Josue Interpretating Date/Time 07/25/2018 19:55:03
[2018-07-25 20:10] LABS: Hematocrit 26.3 % (39.0-51.0); Hemoglobin 8.7 gm/dL (13.0-17.0)
[2018-07-25 21:19] LABS: ABG Base Excess -8.4 mmol/L (-2-2); ABG PCO2 36 mmHg (38-42); ABG PO2 161 mmHg (61-120)
--- NOTE | 2018-07-25 21:31 | P.CONCA ---
History of Present Illness Service: Cardiology Consult date: 07/25/18 Reason for Consult: Coronary artery disease Primary Care Provider: Ambar Chaudhary Chief Complaint: weakness History of Present Illness: This is a 83-year-old male patient who was recently admitted to the hospital. He reportedly has been on the cruise returned about 2 weeks ago. Has complaints of a respiratory illness in which she ran reportedly of azithromycin times 10 days was prescribed. He continued to have weakness and was brought to the hospital per EMS. Upon arrival he was found to be very anemic with a hemoglobin of 2.5. He was given blood transfusion x4 which raised his hemoglobin to 8.7. He is currently intubated and sedated. History was obtained from daughters at bedside and his nurse at the bedside. He does have a past medical history of coronary artery disease, proximal atrial fibrillation , hypertension, obstructive sleep apnea, valvular heart disease, hyperlipidemia , ischemic cardiomyopathy, and carotid artery disease. Past surgical history includes AICD, CABG, cataract surgery, bilateral knee replacements, and a graphic AAA repair, ventricular tachycardia ablation, Social history he is former tobacco use from 5039 alcohol none caffeine 1-2 cups every day exercise none and recreational drugs none Family history mother at 83 from natural causes Father at 66 from unknown causes siblings he does have a brother with diabetes mellitus Review of Systems unobtainable due to endotracheal tube PMFSH - History History Provided By: Cap Blocker / EMT - Medical History Medical History: Medical History (Last Updated 07/25/18 @ 10:25 by Aliza Fonseca MD) Artificial cardiac pacemaker (Acute) A-fib Anemia CAD (coronary artery disease) Cardiac defibrillator in place Heart valve disease High cholesterol History of tobacco abuse Hypertension Hypothyroidism ICD (implantable cardioverter-defibrillator) in place Obesity Prostate cancer Psoriasis Squamous cell carcinoma of scalp V-tach - Surgical History Surgical History: Surgical History (Last Updated 07/25/18 @ 10:23 by Aliza Fonseca MD) H/O knee surgery History of abdominal aortic aneurysm (AAA) repair - Family History Family History: Family History (Last Updated 07/25/18 @ 10:26 by Aliza Fonseca MD) Father Alcoholism Cancer - Tobacco History Second Hand Smoke Exposure: No Tobacco Use In Past 30 Days: No Smoking Status: Unknown if ever smoked Smoking End Date: 42 years ago - Alcohol History How Often Do You Have a Drink Containing Alcohol: Never - Substance Use History Substance History: No History of Abuse - Travel History Recent Travel in the [place] Within the Last 8 Weeks: No Recent Travel Out of the Country Within the Last 8 Weeks: No - Immunization History Tetanus Immunization: <5 Years Medications and Allergies Active Medications: Active Medications Al Hydroxide/Mg Hydroxide (Milk Of Magnesia Liq) 30 ml PO Q12H PRN PRN Reason: Mild Constipation Albuterol (Albuterol Neb (Prn)) 2.5 mg NEB Q2HR NEB PRN PRN Reason: SHORTNESS OF BREATH/WHEEZING Bisacodyl (Dulcolax Supp) 10 mg RECTAL DAILY PRN PRN Reason: SEVERE CONSITIPATION Chlorhexidine Gluconate (Chlorhexidine 2% Cloth) 3 pack TOPICAL DAILY@0400 ALLY Stop: 07/31/18 03:59 Chlorhexidine Gluconate (Chlorhexidine 2% Cloth) 3 pack TOPICAL DAILY@0400 PRN PRN Reason: Extra cloth needed Stop: 07/31/18 03:59 Chlorhexidine Gluconate (Peridex 0.12% Oral Kit) 15 ml OROPHARYNG BID@0800, 2000 [facility] Midazolam HCl (Versed Inj) 100 mg in 100 mls @ 2 mls/hr IV.CONT TITRATE PRN; Protocol PRN Reason: See protocol Last Titration: 07/25/18 14:37 Dose: 6 mg/hr, 6 mls/hr Fentanyl (Fentanyl 10 Mcg/Ml Premix Drip) 2,500 mcg in 250 mls @ 5 mls/hr IV.SIG TITRATE PRN; Protocol PRN Reason: Per Protocol Last Titration: 07/25/18 14:39 Dose: 100 mcg/hr, 10 mls/hr Sodium Chloride (Ns Inj) 250 mls @ 15 mls/hr IV.SIG ONCE ALLY Stop: 07/25/18 22:39 Pantoprazole Sodium 80 mg/ (Sodium Chloride) 100 mls @ 10 mls/hr IV.CONT CONT ALLY Last Admin: 07/25/18 08:14 Dose: 10 mls/hr Sodium Chloride (Ns Inj) 1,000 mls @ 100 mls/hr IV.CONT .Q10H ALLY Last Admin: 07/25/18 19:42 Dose: 100 mls/hr Lactulose (Lactulose Liq) 30 ml PO DAILY PRN PRN Reason: SEVERE CONSITIPATION Levothyroxine Sodium (Synthroid Inj) 12.5 mcg IV.PUSH DAILY@0600 [facility] Midazolam HCl (Versed Inj) 2 mg IV.PUSH Q1H PRN PRN Reason: SEDATION Miscellaneous Medication () 1 each OROPHARYNG 0000,0400,1200,1600 [facility] Last Admin: 07/25/18 18:05 Dose: 1 each Ondansetron HCl (Zofran Inj) 4 mg IV.PUSH Q6H PRN PRN Reason: NAUSEA OR VOMITING Senna/Docusate Sodium (Angela-Colace) 1 tab PO BID [facility] Sennosides (Senokot) 17.2 mg PO Q12H PRN PRN Reason: Moderate Constipation Sodium Chloride (Ns Flush) 2 ml IV.FLUSH PRN PRN PRN Reason: FLUSH AFTER USING IV ACCESS Sodium Chloride (Ns Flush) 2 ml IV.FLUSH BID [facility] Allergies Allergy/AdvReac Type Severity Reaction Status Date / Time penicillin G Allergy Severe Anaphylaxis Verified 07/25/18 02:21 Home Medications Medication Instructions Recorded Confirmed Type amiodarone 200 mg PO DAILY 07/25/18 07/25/18 History apixaban [Eliquis] 2.5 mg PO BID 07/25/18 07/25/18 History aspirin [Aspir-Low] 81 mg PO DAILY 07/25/18 07/25/18 History calcium carbonate [Calcium 600] 1 tab PO DAILY 07/25/18 07/25/18 History carvedilol 25 mg PO BID 07/25/18 07/25/18 History furosemide 40 mg PO DAILY 07/25/18 07/25/18 History isosorbide mononitrate 60 mg PO DAILY 07/25/18 07/25/18 History levothyroxine 25 mcg PO DAILY 07/25/18 07/25/18 History omeprazole 20 mg PO DAILY 07/25/18 07/25/18 History potassium chloride 10 meq PO BID 07/25/18 07/25/18 History rosuvastatin [Crestor] 5 mg PO DAILY 07/25/18 07/25/18 History sacubitril-valsartan [Entresto] 1 tab PO BID 07/25/18 07/25/18 History Exam Vital signs: Vital Signs 07/25/18 02:00 07/25/18 02:20 07/25/18 02:30 Temperature 97 F L Pulse Rate 67 61 Respiratory Rate 20 16 22 Blood Pressure 107/67 110/80 Pulse Oximetry 98 92 L 07/25/18 03:54 07/25/18 04:05 07/25/18 04:14 Temperature 97.7 F Pulse Rate 61 60 Respiratory Rate 16 Blood Pressure 100/53 L Pulse Oximetry 96 98 07/25/18 04:29 07/25/18 05:01 07/25/18 05:10 Temperature 97 F L Pulse Rate 65 63 60 Respiratory Rate 16 16 16 Blood Pressure 107/60 97/50 L 97/50 L Pulse Oximetry 98 93 L 98 07/25/18 05:13 07/25/18 05:16 07/25/18 06:11 Temperature 97 F L Pulse Rate 59 L 60 59 L Respiratory Rate 16 16 16 Blood Pressure 97/50 L 99/54 L 147/68 H Pulse Oximetry 98 07/25/18 06:23 07/25/18 06:25 07/25/18 06:52 Temperature 97.3 F L 97.6 F Pulse Rate 62 59 L 75 Respiratory Rate 16 16 14 Blood Pressure 145/60 H 145/64 H 128/83 Pulse Oximetry 96 98 07/25/18 06:55 07/25/18 07:00 07/25/18 07:46 Temperature Pulse Rate 61 Respiratory Rate 16 16 16 Blood Pressure Pulse Oximetry 96 100 07/25/18 07:52 07/25/18 08:00 07/25/18 08:52 Temperature 97.5 F L Pulse Rate 59 L 59 L 59 L Respiratory Rate 16 16 17 Blood Pressure 121/61 135/65 Pulse Oximetry 97 92 L 100 07/25/18 09:00 07/25/18 09:52 07/25/18 10:00 Temperature Pulse Rate 59 L 59 L 59 L Respiratory Rate 16 16 17 Blood Pressure 140/69 Pulse Oximetry 98 100 99 07/25/18 10:52 07/25/18 11:00 07/25/18 12:00 Temperature 98.2 F Pulse Rate 59 L 59 L 59 L Respiratory Rate 23 11 L 12 Blood Pressure 112/58 L Pulse Oximetry 100 07/25/18 12:30 07/25/18 12:47 07/25/18 12:52 Temperature Pulse Rate 59 L 59 L Respiratory Rate 17 10 L 16 Blood Pressure 93/54 L 76/44 L Pulse Oximetry 100 100 100 07/25/18 12:56 07/25/18 13:00 07/25/18 13:04 Temperature Pulse Rate 59 L 59 L 59 L Respiratory Rate 16 16 16 Blood Pressure 78/46 L 81/49 L 106/56 L Pulse Oximetry 100 100 100 07/25/18 13:08 07/25/18 13:12 07/25/18 13:15 Temperature Pulse Rate 59 L 59 L 59 L Respiratory Rate 16 16 16 Blood Pressure 107/58 L 107/58 L Pulse Oximetry 100 100 100 07/25/18 13:16 07/25/18 13:20 07/25/18 13:24 Temperature Pulse Rate 59 L 59 L 59 L Respiratory Rate 16 16 16 Blood Pressure 106/57 L 105/57 L 105/57 L Pulse Oximetry 100 100 100 07/25/18 13:28 07/25/18 13:32 07/25/18 13:36 Temperature Pulse Rate 59 L 59 L 59 L Respiratory Rate 16 16 10 L Blood Pressure 105/57 L 104/58 L 105/57 L Pulse Oximetry 100 100 100 07/25/18 14:00 07/25/18 15:00 07/25/18 16:00 Temperature Pulse Rate 59 L 59 L 59 L Respiratory Rate 17 16 16 Blood Pressure 100/57 L 92/59 L 92/54 L Pulse Oximetry 07/25/18 16:42 07/25/18 16:47 07/25/18 16:56 Temperature Pulse Rate Respiratory Rate 18 22 Blood Pressure Pulse Oximetry 97 97 99 07/25/18 17:01 07/25/18 17:23 07/25/18 17:30 Temperature Pulse Rate 59 L 60 59 L Respiratory Rate 8 L 11 L Blood Pressure 110/53 L 108/53 L Pulse Oximetry 07/25/18 17:45 07/25/18 18:00 07/25/18 18:15 Temperature Pulse Rate 59 L 59 L 59 L Respiratory Rate 12 12 9 L Blood Pressure 100/55 L 95/47 L 96/49 L Pulse Oximetry 100 99 98 07/25/18 18:30 Temperature 100.0 F H Pulse Rate 59 L Respiratory Rate 16 Blood Pressure 95/50 L Pulse Oximetry 99 Intake & Output 07/25/18 07/25/18 07/26/18 06:59 18:59 06:59 Intake Total 3251 / 3251 705 / 705 Output Total 525 / 525 990 / 990 Balance 2726 / 2726 -285 / -285 Weight 99.79 kg Intake: IV 1251 / 1251 505 / 505 Versed Inj 100 mg In 100 ml @ 2 100 / 100 MG/HR 2 mls/hr IV.CONT TITRATE PRN Rx#:[id number] Calcium Chloride Inj 2 GM In NS 120 / 120 Inj 100 ML @ 120 mls/hr IV.SIG ONCE ONE Rx#:[id number] Protonix Inj 80 MG In NS Inj 35 35 / 35 ML @ 420 mls/hr IV.SIG BOLUS ONE Rx#:[id number] Vitamin K Inj 10 MG In NS Inj 51 / 51 50 ML @ 102 mls/hr IV.SIG ONCE ONE Rx#:[id number] Kcentra Inj 5,000 UNIT In Bag/ 200 / 200 Syringe 200 EACH @ 500 mls/hr IV.SIG ONCE ONE Rx#:[id number] NS Inj 1,000 ML @ Wide Open IV. 1000 / 1000 SIG BOLUS ONE Rx#:[id number] fentaNYL 10 mcg/mL Premix Drip 250 / 250 2,500 mcg In 250 ml @ 50 MCG/HR 5 mls/hr IV.SIG TITRATE PRN Rx #:[id number] Anesthesia Amount 200 / 200 Other 1999 / 1999 Intake (Blood Product) Amt 0 / 0 Plasma Thawed 5 Day Acda Unit 0 / 0 [id number] Plt Pheresis S Leukoreduced 0 / 0 Unit [id number] Pre-Pooled Cryo Thawed 10units 0 / 0 Unit [id number] Rbc As-3 Leukoreduced Unit 0 / 0 [id number] Rbc As-3 Leukoreduced Unit 0 / 0 [id number] Rbc As-3 Leukoreduced Unit 0 / 0 [id number] Output: Urine 150 / 150 Urine Amount (Catheter) 525 / 525 840 / 840 Indwelling Urethral Catheter 525 / 525 840 / 840 Other: Other Intake Source Saline Solution Date of Last Bowel Movement 07/25/18 - Constitutional no acute distress - Routine HEENT Exam Head: Present: normocephalic - Routine Neck Exam Present: carotid bruit. Absent: tracheal deviation Comments: Left greater than right - Routine Respiratory Exam Present: patient mechanically ventilated Comments: Few crackles in bases - Routine Cardiovascular Exam Present: S1, S2, murmur Comments: 2/6 systolic at the left sternal border heart tones are distant - Routine Abdominal Exam Comments: Abdomen is obese with hypoactive bowel sounds heard primarily in the right lower quadrant - Routine Extremities Exam Present: edema, pallor Comments: 1+ edema to extremities both feet are cool to touch. Very faint pedal pulse palpated bilaterally no cyanosis noted Results 07/25/18 17:45 07/25/18 08:52 Cardiac Enzymes 07/25/18 Range/Units 02:20 AST 19 (15-37) U/L Troponin I 0.03 (0.02-0.05) ng/mL Coagulation 07/25/18 07/25/18 07/25/18 Range/Units 02:20 08:52 08:52 PT 15.3 H 12.5 H (9.8-11.6) sec APTT 38.7 H 29.2 D (23.4-31.7) sec CBC 07/25/18 07/25/18 07/25/18 Range/Units 02:20 03:05 08:52 WBC 5.0 6.7 8.5 (4.0-11.0) th/mm3 RBC 0.76 L 1.80 L 2.64 L (4.50-5.90) mil/mm3 Hgb 2.5 L* 5.7 L* D 8.2 L D (13.0-17.0) gm/dL Hct 8.1 L* 17.8 L* 24.4 L (39.0-51.0) % Plt Count 57 L 50 L 76 L D (150-450) th/mm3 Neut # (Auto) 4.0 5.7 (1.8-7.7) th/mm3 Lymph # (Auto) 0.5 L 0.6 L (1.0-4.8) th/mm3 [place] # (Auto) 0.4 0.3 (0.0-0.9) th/mm3 Eos # (Auto) 0.0 0.0 (0.0-0.4) th/mm3 Baso # (Auto) 0.0 0.1 (0.0-0.2) th/mm3 07/25/18 Range/Units 17:45 WBC (4.0-11.0) th/mm3 RBC (4.50-5.90) mil/mm3 Hgb 8.7 L (13.0-17.0) gm/dL Hct 26.3 L (39.0-51.0) % Plt Count (150-450) th/mm3 Neut # (Auto) (1.8-7.7) th/mm3 Lymph # (Auto) (1.0-4.8) th/mm3 [place] # (Auto) (0.0-0.9) th/mm3 Eos # (Auto) (0.0-0.4) th/mm3 Baso # (Auto) (0.0-0.2) th/mm3 Comprehensive Metabolic Panel 07/25/18 07/25/18 Range/Units 02:20 08:52 Sodium 144 142 (136-145) meq/L Potassium 4.7 3.8 D (3.5-5.1) meq/L Chloride 117 H 114 H (98-107) meq/L Carbon Dioxide 15.4 L 19.3 L (21.0-32.0) meq/L BUN 75 H 68 H (7-18) mg/dL Creatinine 2.74 H 2.45 H (0.60-1.30) mg/dL Calcium 6.4 L* 7.7 L D (8.5-10.1) mg/dL AST 19 (15-37) U/L ALT 18 (12-78) U/L Alkaline Phosphatase 30 L (45-117) U/L Total Protein 5.0 L (6.4-8.2) g/dL Albumin 2.4 L (3.4-5.0) g/dL Intake and Output 07/25/18 07/25/18 07/25/18 06:59 14:59 22:59 Intake Total 3251 / 3251 705 / 705 Output Total 525 / 525 850 / 850 140 / 140 Balance 2726 / 2726 -145 / -145 -140 / -140 Intake: IV 1251 / 1251 505 / 505 Versed Inj 100 mg In 100 ml @ 2 100 / 100 MG/HR 2 mls/hr IV.CONT TITRATE PRN Rx#:[id number] Calcium Chloride Inj 2 GM In NS 120 / 120 Inj 100 ML @ 120 mls/hr IV.SIG ONCE ONE Rx#:[id number] Protonix Inj 80 MG In NS Inj 35 35 / 35 ML @ 420 mls/hr IV.SIG BOLUS ONE Rx#:[id number] Vitamin K Inj 10 MG In NS Inj 51 / 51 50 ML @ 102 mls/hr IV.SIG ONCE ONE Rx#:[id number] Kcentra Inj 5,000 UNIT In Bag/ 200 / 200 Syringe 200 EACH @ 500 mls/hr IV.SIG ONCE ONE Rx#:[id number] NS Inj 1,000 ML @ Wide Open IV. 1000 / 1000 SIG BOLUS ONE Rx#:[id number] fentaNYL 10 mcg/mL Premix Drip 250 / 250 2,500 mcg In 250 ml @ 50 MCG/HR 5 mls/hr IV.SIG TITRATE PRN Rx #:[id number] Anesthesia Amount 200 / 200 Other 1999 Intake (Blood Product) Amt 0 / 0 Plasma Thawed 5 Day Acda Unit 0 / 0 [id number] Plt Pheresis S Leukoreduced 0 / 0 Unit [id number] Pre-Pooled Cryo Thawed 10units 0 / 0 Unit [id number] Rbc As-3 Leukoreduced Unit 0 / 0 [id number] Rbc As-3 Leukoreduced Unit 0 / 0 [id number] Rbc As-3 Leukoreduced Unit 0 / 0 [id number] Output: Urine 150 / 150 Urine Amount (Catheter) 525 / 525 700 / 700 140 / 140 Indwelling Urethral Catheter 525 / 525 700 / 700 140 / 140 Other: Other Intake Source Saline Solution Date of Last Bowel Movement 07/25/18 07/25/18 Weight 99.79 kg - Imaging and Cardiology Imaging: Impressions Chest X-Ray 07/25/18 00:00 CONCLUSION: 1. Tip of the sheath involving the right neck overlies the supraclavicular region. No pneumothorax. 2. Repositioned endotracheal tube. GI Bleed Scan Nuclear Medicine 07/25/18 00:00 CONCLUSION: 1. No evidence of active bleeding. Thoracic Aorta CT 07/25/18 00:00 CONCLUSION: 1. Tip of the endotracheal tube within the origin of the right mainstem bronchus. 2. No dissection. 3. 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 I am not able to clearly identify the endoleak on this study, however, there is limited opacification of the aorta which would make identification of an endoleak difficult. 4. Hemodynamically significant stenoses involving the celiac, SMA, and renal arteries 5. Trace amount of ascites. Chest X-Ray 07/25/18 02:10 CONCLUSION: Tip of the endotracheal tube at the origin of the right mainstem bronchus. Assessment and Plan - Plan #1. Coronary artery disease most recent catheterization was in November 2016 which showed was stable #2 ventricular tachycardia status post VT ablation/dual-chamber ICD #3 paroxysmal atrial fibrillation-we will reintroduce his cardiac meds slowly as condition warrants #4 moderate ischemic cardiomyopathy status post ICD #5 hyperlipidemia-we will reintroduce his home medications when able Further recommendations will be made after Dr Jean-Baptiste sees the patient Discussed with both daughters at the bedside as well as patient's RN Thank you for this consultation
[2018-07-25] MEDS: Senna/Docusate Sodium 8.6/50 MG Tablet PO SCH (22:47)
[2018-07-26] MEDS: Oral Hygiene Kit OROPHARYNG SCH ×2 (01:37→05:36)
[2018-07-26] MEDS: Chlorhexidine 0.12% Oral Kit 15 ML UDC OROPHARYNG SCH ×2 (01:37→08:37)
[2018-07-26] MEDS ORDERED: Chlorhexidine Gluconate 2% 1 Pack (2 Cloths) TOPICAL PRN (04:00)
[2018-07-26] MEDS ORDERED: Chlorhexidine Gluconate 2% 1 Pack (2 Cloths) TOPICAL SCH (04:00)
[2018-07-26] MEDS: Sod Chloride 0.9% Inj 1,000 ML IV.CONT SCH (06:16)
[2018-07-26] MEDS: Pantoprazole Inj 80 MG in Sodium Chlor 0.9% Inj 100 ML IV.CONT SCH (08:36)
[2018-07-26] MEDS: Senna/Docusate Sodium 8.6/50 MG Tablet PO SCH (08:37)
--- NOTE | 2018-07-26 10:28 | P.CONPAL ---
Consult Service: Palliative Care Requesting Physician: Can Vargas Reason for Consult: a. To assist with evaluation and management of symptoms including: Pain, dyspnea b. To assist medical decision maker(s) with: better understanding of current medical conditions; weighing benefits/burdens of medical treatment options; making medical treatment decisions. Primary Care Provider: Ambar Chaudhary History of Present Illness History of Present Illness: This is an 83-year-old man who presented to the emergency room with 2 episodes of near syncope, called 911. Apparently upon arrival of EMS he was available with a stable blood pressure. Prior to arriving at the ED, he became anxious, was hypotensive with systolic blood pressure in the 60s, and was pale. He was a he was able to answer some questions but required repeated questioning. Upon arrival to the ED, patient was orally intubated , he underwent bedside ultrasound for suspected AAA rupture, received 4 units of emergency release blood, and underwent chest CT which showed possible endoleak. Cardiovascular surgery reviewed scan who did not feel that it was a ruptured AAA. GI was consulted. Patient was started on Protonix drip, NG tube was placed to suction without any output, he was given 1 unit of FFP. Speech And Language Tutor placed introducer/triple-lumen catheter. Per ED documentation,Dr. Ty discussed patient's critical condition with and daughter both on the phone and in the ED at bedside. Patient was transferred to the ICU hemorrhagic shock. Additional history/ ED course: * Hgb 2.5, hematocrit 8.1, platelets 57, PT/INR 15.3/1.5, APTT 38.7, sodium 144 , potassium 4.7, chloride 117, carbon dioxide 15.4, BUN 75, creatinine 2.74, GFR 22, calcium 6.4, bilirubin 0.3, AST/ALT 19/18, alkaline phosphatase 30, troponin 0.03, protein 5, albumin 2.4, lactic acid 5.6 * CXR: Endotracheal tube tip at the origin of the right mainstem bronchus. Heart is mildly enlarged. Lungs are clear. No effusions. Pacing device overlies left chest. Median sternotomy wires. * Abdominal CTA:1. Tip of the endotracheal tube within the origin of the right mainstem bronchus. 2. No dissection. 3. 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 I am not able to clearly identify the endoleak on this study, however, there is limited opacification of the aorta which would make identification of an endoleak difficult. 4. Hemodynamically significant stenoses involving the celiac, SMA, and renal arteries 5. Trace amount of ascites. * Bleeding scan: No evidence of active bleeding. At time of my visit today, patient is intubated, mechanically ventilated, and sedated. He does not rouse to voice or light touch. Per personnel monitor, he is hypotensive. He does have some spontaneous respirations over the ventilator set rate. Family discussion: Met with patient's and 2 daughters. Family indicates [facility] was initially called due to a fall where family was unable to get the patient back up. Once [facility] arrived, patient did have a cognitive decline and was hypotensive. Family indicates patient was a DNR at home, however they did not provide [facility] DNR to [facility] or to ED staff. With that said, daughter and both indicate they alerted [facility] that patient was a DNR and would not want aggressive measures taken but they were agreeable to him coming to the ER for assessment. and daughter indicate that once they arrived to the ED, they were not able to participate in decision making for the patient including intubation, CPR, and blood transfusions, and once they were allowed back the above interventions had already taken place. Explored care wishes, daughter presents 5 wishes. Family indicates patient would not want aggressive measures taken. Given his overall functional decline in the past few years, they do not feel that any of these aggressive type measures would be beneficial to the patient. Family asking about possible functional status post withdrawal of life support, advised patient remains critically ill and would likely have significant deficits if he were to survive this hospitalization. At this time, they would like to have additional family members come, they would like to withdraw life support later today. Family requesting to deactivate AICD. Discussed with associate professor of media arts Dr. Vargas and Dr. Camargo. Exhibits signed and placed on chart. Cement Truck Loader consulted and is already visited. Hospice consulted , notified intake department of withdrawal later today. Spoke with dowel pin worker to advise of family need for support and information. Spoke with bedside nurse, updated on plans for today. Advised to deactivate AICD. No further escalation of care pending family arrival. Function/Cognitive Trajectory: Family indicate patient has had slow decline over the past year. They state he had been "sneaking olives" with resulting edema. He was initially ambulatory, was progressing to ambulating with a walker, eventually on a cruise a few weeks ago required wheelchair and assistance. Daughter states he has required more assistance with most of his ADLs in the past few months. He has been having intermittent confusion.He has been having frequent falls, they have required nonemergency assist to get him off the floor. On 07/17 he started treatment for an upper respiratory infection. Daughter notes that he had been chewing ice for a few weeks and has had a decreased appetite. He had not been compliant with recommended medications. And "did what he wanted" as far as taking meds and was "sneaking foods "he knew he was not supposed be taking. He has been having intermittent confusion. Review of Systems Constitutional: Reports body ache(s), Reports fatigue, Reports fever(s), Reports lack of energy Eyes: Denies change in vision Ears, Nose, Mouth, and Throat: Reports dizziness, Denies abnormal hearing, Denies difficulty swallowing Cardiovascular: Reports foot swelling, Reports irregular heart rhythm, Reports leg swelling, Reports lightheadedness, Reports shortness of breath Respiratory: Reports chest congestion (Recent URI), Reports cough, Reports shortness of breath Gastrointestinal: Denies black, tarry stools, Denies nausea, Denies vomiting Genitourinary: Denies urinary frequency, Denies urinary urgency Musculoskeletal: Reports abnormal walking (unable to ambulate recently due to worsening weakness), Reports body aches Skin/Breast: Denies change in skin color Neurologic: Reports abnormal walking, Reports dizziness, Reports frequent falls , Reports lack of coordination, Reports memory loss, Reports unsteadiness, Reports weakness Psychiatric: Reports anxiety, Reports confusion Endocrine: Reports other (Chewing ice), Denies cold intolerance, Denies heat intolerance Hematologic/Lymphatic: Reports easy bleeding (hx of anticoagulation) PMFSH - History History Provided By: Family Member, Significant Other, Medical Record - Medical History Medical History: Medical History (Last Reviewed 07/26/18 @ 12:49 by SONAL Mehta) Artificial cardiac pacemaker (Acute) A-fib Anemia CAD (coronary artery disease) Cardiac defibrillator in place Heart valve disease High cholesterol History of tobacco abuse Hypertension Hypothyroidism ICD (implantable cardioverter-defibrillator) in place Obesity Prostate cancer Psoriasis Squamous cell carcinoma of scalp V-tach - Surgical History Surgical History: Surgical History (Last Reviewed 07/26/18 @ 12:49 by SONAL Mehta) H/O knee surgery History of abdominal aortic aneurysm (AAA) repair - Family History Family History: Family History (Last Updated 07/25/18 @ 10:26 by Aliza Fonseca MD) Father Alcoholism Cancer - Tobacco History Second Hand Smoke Exposure: No Tobacco Use In Past 30 Days: No Smoking Status: Never smoker Smoking End Date: 42 years ago - Alcohol History How Often Do You Have a Drink Containing Alcohol: Never - Substance Use History Substance History: No History of Abuse - Travel History History of Recent Travel: Yes (Recent cruise) Recent Travel in the [place] Within the Last 8 Weeks: Yes Recent Travel Out of the Country Within the Last 8 Weeks: No - Immunization History Tetanus Immunization: <5 Years Medications and Allergies Active Medications: Active Medications Al Hydroxide/Mg Hydroxide (Milk Of Magnesia Liq) 30 ml PO Q12H PRN PRN Reason: Mild Constipation Albuterol (Albuterol Neb (Prn)) 2.5 mg NEB Q2HR NEB PRN PRN Reason: SHORTNESS OF BREATH/WHEEZING Bisacodyl (Dulcolax Supp) 10 mg RECTAL DAILY PRN PRN Reason: SEVERE CONSITIPATION Chlorhexidine Gluconate (Chlorhexidine 2% Cloth) 3 pack TOPICAL DAILY@0400 [facility] Stop: 07/31/18 03:59 Last Admin: 07/26/18 05:35 Dose: 3 pack Chlorhexidine Gluconate (Chlorhexidine 2% Cloth) 3 pack TOPICAL DAILY@0400 PRN PRN Reason: Extra cloth needed Stop: 07/31/18 03:59 Chlorhexidine Gluconate (Peridex 0.12% Oral Kit) 15 ml OROPHARYNG BID@0800, 2000 [facility] Last Admin: 07/26/18 08:37 Dose: 15 ml Midazolam HCl (Versed Inj) 100 mg in 100 mls @ 2 mls/hr IV.CONT TITRATE PRN; Protocol PRN Reason: See protocol Last Admin: 07/25/18 22:47 Dose: 7 mg/hr, 7 mls/hr Fentanyl (Fentanyl 10 Mcg/Ml Premix Drip) 2,500 mcg in 250 mls @ 5 mls/hr IV.SIG TITRATE PRN; Protocol PRN Reason: Per Protocol Last Titration: 07/25/18 14:39 Dose: 100 mcg/hr, 10 mls/hr Pantoprazole Sodium 80 mg/ (Sodium Chloride) 100 mls @ 10 mls/hr IV.CONT CONT [facility] Last Admin: 07/26/18 08:36 Dose: 10 mls/hr Sodium Chloride (Ns Inj) 1,000 mls @ 100 mls/hr IV.CONT .Q10H [facility] Last Admin: 07/26/18 06:16 Dose: 100 mls/hr Lactulose (Lactulose Liq) 30 ml PO DAILY PRN PRN Reason: SEVERE CONSITIPATION Levothyroxine Sodium (Synthroid Inj) 12.5 mcg IV.PUSH DAILY@0600 [facility] Last Admin: 07/26/18 06:51 Dose: 12.5 mcg Midazolam HCl (Versed Inj) 2 mg IV.PUSH Q1H PRN PRN Reason: SEDATION Miscellaneous Medication () 1 each OROPHARYNG 0000,0400,1200,1600 [facility] Last Admin: 07/26/18 05:36 Dose: 1 each Ondansetron HCl (Zofran Inj) 4 mg IV.PUSH Q6H PRN PRN Reason: NAUSEA OR VOMITING Senna/Docusate Sodium (Angela-Colace) 1 tab PO BID [facility] Last Admin: 07/26/18 08:37 Dose: Not Given Sennosides (Senokot) 17.2 mg PO Q12H PRN PRN Reason: Moderate Constipation Sodium Chloride (Ns Flush) 2 ml IV.FLUSH PRN PRN PRN Reason: FLUSH AFTER USING IV ACCESS Sodium Chloride (Ns Flush) 2 ml IV.FLUSH BID [facility] Last Admin: 07/26/18 08:37 Dose: 2 ml Allergies Allergy/AdvReac Type Severity Reaction Status Date / Time penicillin G Allergy Severe Anaphylaxis Verified 07/25/18 02:21 Home Medications Medication Instructions Recorded Confirmed Type amiodarone 200 mg PO DAILY 07/25/18 07/25/18 History apixaban [Eliquis] 2.5 mg PO BID 07/25/18 07/25/18 History aspirin [Aspir-Low] 81 mg PO DAILY 07/25/18 07/25/18 History calcium carbonate [Calcium 600] 1 tab PO DAILY 07/25/18 07/25/18 History carvedilol 25 mg PO BID 07/25/18 07/25/18 History furosemide 40 mg PO DAILY 07/25/18 07/25/18 History isosorbide mononitrate 60 mg PO DAILY 07/25/18 07/25/18 History levothyroxine 25 mcg PO DAILY 07/25/18 07/25/18 History omeprazole 20 mg PO DAILY 07/25/18 07/25/18 History potassium chloride 10 meq PO BID 07/25/18 07/25/18 History rosuvastatin [Crestor] 5 mg PO DAILY 07/25/18 07/25/18 History sacubitril-valsartan [Entresto] 1 tab PO BID 07/25/18 07/25/18 History Advance Directives Advance Directives Date on File: 07/26/18 Living Will: Yes Healthcare Surrogate: Yes Health Care Surrogate Name and Number: , alternate is daughter Aracelis Mariela and Bre Documented care wishes: Completed 5 wishes Family/friends goals: Withdrawal of life support, peaceful Ethical and Legal Issues: Per nursing staff, risk management is been contacted as family states patient was resuscitated against their wishes. They indicate they notified [facility] patient 's wishes were to be DNR. States were unable to communicate with ER staff upon arrival to alert them of patient/family wishes regarding aggressive measures. Physical Exam Vital Signs: Vital Signs - 24 hr 07/25/18 10:52 07/25/18 11:00 07/25/18 12:00 Temperature 98.2 F Pulse Rate 59 L 59 L 59 L Respiratory Rate 23 11 L 12 Blood Pressure 112/58 L Pulse Oximetry 100 07/25/18 12:30 07/25/18 12:47 07/25/18 12:52 Temperature Pulse Rate 59 L 59 L Respiratory Rate 17 10 L 16 Blood Pressure 93/54 L 76/44 L Pulse Oximetry 100 100 100 07/25/18 12:56 07/25/18 13:00 07/25/18 13:04 Temperature Pulse Rate 59 L 59 L 59 L Respiratory Rate 16 16 16 Blood Pressure 78/46 L 81/49 L 106/56 L Pulse Oximetry 100 100 100 07/25/18 13:08 07/25/18 13:12 07/25/18 13:15 Temperature Pulse Rate 59 L 59 L 59 L Respiratory Rate 16 16 16 Blood Pressure 107/58 L 107/58 L Pulse Oximetry 100 100 100 07/25/18 13:16 07/25/18 13:20 07/25/18 13:24 Temperature Pulse Rate 59 L 59 L 59 L Respiratory Rate 16 16 16 Blood Pressure 106/57 L 105/57 L 105/57 L Pulse Oximetry 100 100 100 07/25/18 13:28 07/25/18 13:32 07/25/18 13:36 Temperature Pulse Rate 59 L 59 L 59 L Respiratory Rate 16 16 10 L Blood Pressure 105/57 L 104/58 L 105/57 L Pulse Oximetry 100 100 100 07/25/18 14:00 07/25/18 15:00 07/25/18 16:00 Temperature Pulse Rate 59 L 59 L 59 L Respiratory Rate 17 16 16 Blood Pressure 100/57 L 92/59 L 92/54 L Pulse Oximetry 07/25/18 16:42 07/25/18 16:47 07/25/18 16:56 Temperature Pulse Rate Respiratory Rate 18 22 Blood Pressure Pulse Oximetry 97 97 99 07/25/18 17:01 07/25/18 17:23 07/25/18 17:30 Temperature Pulse Rate 59 L 60 59 L Respiratory Rate 8 L 11 L Blood Pressure 110/53 L 108/53 L Pulse Oximetry 07/25/18 17:45 07/25/18 18:00 07/25/18 18:15 Temperature Pulse Rate 59 L 59 L 59 L Respiratory Rate 12 12 9 L Blood Pressure 100/55 L 95/47 L 96/49 L Pulse Oximetry 100 99 98 07/25/18 18:30 07/25/18 19:00 07/25/18 19:15 Temperature 100.0 F H Pulse Rate 59 L 59 L 59 L Respiratory Rate 16 15 16 Blood Pressure 95/50 L 94/52 L 115/55 L Pulse Oximetry 99 98 100 07/25/18 19:30 07/25/18 19:45 07/25/18 20:00 Temperature 100 F H Pulse Rate 59 L 59 L 59 L Respiratory Rate 17 15 15 Blood Pressure 111/56 L 114/58 L 108/56 L Pulse Oximetry 97 97 96 07/25/18 20:15 07/25/18 20:30 07/25/18 20:45 Temperature Pulse Rate 59 L 59 L 60 Respiratory Rate 14 11 L 12 Blood Pressure 104/53 L 105/54 L 106/52 L Pulse Oximetry 98 07/25/18 21:00 07/25/18 21:15 07/25/18 21:30 Temperature Pulse Rate 60 60 60 Respiratory Rate 13 10 L 9 L Blood Pressure 104/55 L 97/50 L 95/50 L Pulse Oximetry 97 93 L 98 07/25/18 21:45 07/25/18 22:00 07/25/18 22:15 Temperature Pulse Rate 60 61 61 Respiratory Rate 10 L 9 L 9 L Blood Pressure 95/51 L 98/52 L 98/52 L Pulse Oximetry 100 100 100 07/25/18 22:30 07/25/18 22:45 07/25/18 23:00 Temperature Pulse Rate 61 60 61 Respiratory Rate 9 L 6 L 18 Blood Pressure 92/49 L 96/49 L 93/51 L Pulse Oximetry 100 100 99 07/25/18 23:15 07/25/18 23:20 07/25/18 23:30 Temperature Pulse Rate 61 60 Respiratory Rate 12 14 13 Blood Pressure 93/48 L 94/55 L Pulse Oximetry 96 97 92 L 07/25/18 23:45 07/26/18 00:00 07/26/18 00:15 Temperature 101.5 F H Pulse Rate 60 61 61 Respiratory Rate 10 L 13 11 L Blood Pressure 94/51 L 96/48 L 91/54 L Pulse Oximetry 90 L 91 L 100 07/26/18 00:30 07/26/18 00:31 07/26/18 00:32 Temperature Pulse Rate 60 60 60 Respiratory Rate 22 19 13 Blood Pressure 63/33 L 92/40 L 87/43 L Pulse Oximetry 84 L 87 L 80 L 07/26/18 00:33 07/26/18 00:36 07/26/18 01:00 Temperature Pulse Rate 61 60 61 Respiratory Rate 10 L 26 H 12 Blood Pressure 83/39 L 104/53 L Pulse Oximetry 93 L 97 07/26/18 01:08 07/26/18 01:43 07/26/18 02:00 Temperature 100 F H Pulse Rate 61 62 Respiratory Rate 11 L 15 11 L Blood Pressure 102/53 L Pulse Oximetry 98 07/26/18 02:08 07/26/18 03:00 07/26/18 03:08 Temperature Pulse Rate 66 61 62 Respiratory Rate 12 11 L 11 L Blood Pressure 108/52 L 110/56 L Pulse Oximetry 07/26/18 04:00 07/26/18 04:08 07/26/18 04:25 Temperature 100.5 F H Pulse Rate 61 61 Respiratory Rate 11 L 11 L 14 Blood Pressure 110/54 L Pulse Oximetry 98 07/26/18 05:00 07/26/18 05:08 07/26/18 06:00 Temperature Pulse Rate 60 60 60 Respiratory Rate 10 L 13 13 Blood Pressure 91/43 L Pulse Oximetry 95 07/26/18 06:08 07/26/18 07:00 07/26/18 07:08 Temperature Pulse Rate 60 61 61 Respiratory Rate 12 9 L 12 Blood Pressure 94/44 L 100/46 L Pulse Oximetry 07/26/18 08:00 07/26/18 08:08 07/26/18 08:17 Temperature 98.8 F Pulse Rate 63 64 Respiratory Rate 9 L 10 L 12 Blood Pressure 94/45 L Pulse Oximetry 95 07/26/18 09:00 07/26/18 09:08 Temperature Pulse Rate 65 66 Respiratory Rate 18 19 Blood Pressure 90/42 L Pulse Oximetry I&O: Intake & Output 07/24/18 07/25/18 07/26/18 07/27/18 06:59 06:59 06:59 06:59 Intake Total 3251 / 3251 2905 / 2905 100 / 100 Output Total 525 / 525 1250 / 1250 60 / 60 Balance 2726 / 2726 1655 / 1655 40 / 40 Weight 99.79 kg 110.7 kg Physical Exam: CONSTITUTIONAL/GENERAL: This is an adequately nourished patient, in no apparent distress. TUBES/LINES/DRAINS: ET tube, central line, Ortiz SKIN: Pale. Scattered ecchymotic areas on bilateral upper extremities no wounds seen anteriorly. Skin temperature appropriate. Upper extremities edematous and weepy. HEAD: Atraumatic. Normocephalic. EYES: Did not force eyes open for exam, sedated ENT: Limited ability to assess oropharynx due to ET tube, OGT NECK: Trachea midline. Supple, nontender. No palpable thyroid enlargement or nodularity. CARDIOVASCULAR: Regular rate and rhythm. No JVD. Peripheral pulses weak RESPIRATORY/CHEST: Symmetric, unlabored respirations. Coarse rhonchi throughout. Mechanically ventilated, having some spontaneous respirations GASTROINTESTINAL: Obese nondistended. No hepato-splenomegaly, or palpable masses. Bowel sounds hypoactive. OG tube to suction GENITOURINARY: Without palpable bladder distension. Ortiz catheter in place. MUSCULOSKELETAL: Weak. No spontaneous movement LYMPHATICS: No palpable cervical or supraclavicular adenopathy. NEUROLOGICAL: Intubated and sedated. No spontaneous movement PSYCHIATRIC: Sedated Diagnostic Tests Laboratory: Laboratory Results - last 72 hr 07/25/18 07/25/18 07/25/18 02:08 02:20 02:20 WBC 5.0 RBC 0.76 L Hgb 2.5 L* Hct 8.1 L* MCV 106.2 H MCH 33.3 MCHC 31.3 L RDW 21.2 H Plt Count 57 L MPV 11.6 H Prelim Diff (Auto) Slide review pending Neut % (Auto) 80.3 H Lymph % (Auto) 10.6 [place] % (Auto) 8.4 H Eos % (Auto) 0.4 Baso % (Auto) 0.3 Neut # (Auto) 4.0 Lymph # (Auto) 0.5 L [place] # (Auto) 0.4 Eos # (Auto) 0.0 Baso # (Auto) 0.0 WBC Differential . Diff Scan Auto diff confirmed Differential Comment . Platelet Estimate Low L Platelet Morphology Enlarged H [place] Cells Acanthocytes (Spur) Occ H Keratocytes Occ H PT INR APTT Fibrinogen Puncture Site Patient Temperature O2 Saturation ABG pH ABG pCO2 ABG pO2 ABG HCO3 ABG O2 Content ABG Base Excess ABG Methemoglobin Tao Test Hemoglobin Carboxyhemoglobin O2 Delivery Device Vent Setting Inspired O2 Critical Value Sodium Potassium Chloride Carbon Dioxide Anion Gap BUN Creatinine Estimated GFR Random Glucose Lactic Acid Calcium Calcium Adj for Albumin Total Bilirubin AST ALT Alkaline Phosphatase Troponin I Total Protein Albumin Urine Color Urine Clarity Urine pH Ur Specific [place] Urine Protein Urine Glucose (UA) Urine Ketones Urine Occult Blood Urine Nitrate Urine Bilirubin Urine Urobilinogen Ur Leukocyte Esterase Urine RBC Urine WBC Ur Squamous Epith Cells Urine Bacteria Hyaline Casts Urine Mucus Micro UA Comment Ur Microscopic Review Urine Culture Comments Nasal Screen MRSA (PCR) Blood Type A Positive Antibody Screen Negative MTS Gel Crossmatch See Detail Blood Bank Comment Bld Prod Order Comment 07/25/18 07/25/18 07/25/18 02:20 02:20 03:05 WBC 6.7 RBC 1.80 L Hgb 5.7 L* D Hct 17.8 L* MCV 98.9 D MCH 31.6 MCHC 32.0 RDW 18.1 H D Plt Count 50 L MPV 11.4 H Prelim Diff (Auto) Slide review pending Neut % (Auto) 84.6 H Lymph % (Auto) 9.1 [place] % (Auto) 4.4 Eos % (Auto) 0.2 Baso % (Auto) 1.7 Neut # (Auto) 5.7 Lymph # (Auto) 0.6 L [place] # (Auto) 0.3 Eos # (Auto) 0.0 Baso # (Auto) 0.1 WBC Differential . Diff Scan Auto diff confirmed Differential Comment . Platelet Estimate Low L Platelet Morphology Enlarged H Jerry Cells 1+ H Acanthocytes (Spur) Occ H Keratocytes PT 15.3 H INR 1.5 APTT 38.7 H Fibrinogen Puncture Site Patient Temperature O2 Saturation ABG pH ABG pCO2 ABG pO2 ABG HCO3 ABG O2 Content ABG Base Excess ABG Methemoglobin Tao Test Hemoglobin Carboxyhemoglobin O2 Delivery Device Vent Setting Inspired O2 Critical Value Sodium 144 Potassium 4.7 Chloride 117 H Carbon Dioxide 15.4 L Anion Gap 12 BUN 75 H Creatinine 2.74 H Estimated GFR 22 L Random Glucose 128 H Lactic Acid Calcium 6.4 L* Calcium Adj for Albumin 7.4 L* Total Bilirubin 0.3 AST 19 ALT 18 Alkaline Phosphatase 30 L Troponin I 0.03 Total Protein 5.0 L Albumin 2.4 L Urine Color Urine Clarity Urine pH Ur Specific [place] Urine Protein Urine Glucose (UA) Urine Ketones Urine Occult Blood Urine Nitrate Urine Bilirubin Urine Urobilinogen Ur Leukocyte Esterase Urine RBC Urine WBC Ur Squamous Epith Cells Urine Bacteria Hyaline Casts Urine Mucus Micro UA Comment Ur Microscopic Review Urine Culture Comments Nasal Screen MRSA (PCR) Blood Type Antibody Screen MTS Gel Crossmatch Blood Bank Comment Bld Prod Order Comment 07/25/18 07/25/18 07/25/18 03:05 03:45 04:35 WBC RBC Hgb Hct MCV MCH MCHC RDW Plt Count MPV Prelim Diff (Auto) Neut % (Auto) Lymph % (Auto) [place] % (Auto) Eos % (Auto) Baso % (Auto) Neut # (Auto) Lymph # (Auto) [place] # (Auto) Eos # (Auto) Baso # (Auto) WBC Differential Diff Scan Differential Comment Platelet Estimate Platelet Morphology [place] Cells Acanthocytes (Spur) Keratocytes PT INR APTT Fibrinogen Puncture Site Patient Temperature O2 Saturation ABG pH ABG pCO2 ABG pO2 ABG HCO3 ABG O2 Content ABG Base Excess ABG Methemoglobin Tao Test Hemoglobin Carboxyhemoglobin O2 Delivery Device Vent Setting Inspired O2 Critical Value Sodium Potassium Chloride Carbon Dioxide Anion Gap BUN Creatinine Estimated GFR Random Glucose Lactic Acid 5.6 H* Calcium Calcium Adj for Albumin Total Bilirubin AST ALT Alkaline Phosphatase Troponin I Total Protein Albumin Urine Color Urine Clarity Urine pH Ur Specific [place] Urine Protein Urine Glucose (UA) Urine Ketones Urine Occult Blood Urine Nitrate Urine Bilirubin Urine Urobilinogen Ur Leukocyte Esterase Urine RBC Urine WBC Ur Squamous Epith Cells Urine Bacteria Hyaline Casts Urine Mucus Micro UA Comment Ur Microscopic Review Urine Culture Comments Nasal Screen MRSA (PCR) Blood Type Antibody Screen MTS Gel Crossmatch See Detail Blood Bank Comment Bld Prod Order Comment 07/25/18 07/25/18 07/25/18 04:52 05:00 05:04 WBC RBC Hgb Hct MCV MCH MCHC RDW Plt Count MPV Prelim Diff (Auto) Neut % (Auto) Lymph % (Auto) [place] % (Auto) Eos % (Auto) Baso % (Auto) Neut # (Auto) Lymph # (Auto) [place] # (Auto) Eos # (Auto) Baso # (Auto) WBC Differential Diff Scan Differential Comment Platelet Estimate Platelet Morphology [place] Cells Acanthocytes (Spur) Keratocytes PT INR APTT Fibrinogen Puncture Site Right radial Patient Temperature 98.6 O2 Saturation 98 ABG pH 7.27 L* ABG pCO2 38 ABG pO2 441 H ABG HCO3 17 L ABG O2 Content 9.8 L ABG Base Excess -8.7 L ABG Methemoglobin 0.7 Tao Test Present Hemoglobin 6.2 L* Carboxyhemoglobin 1.1 O2 Delivery Device Ventilator Vent Setting See comments Inspired O2 100 Critical Value Yes Sodium Potassium Chloride Carbon Dioxide Anion Gap BUN Creatinine Estimated GFR Random Glucose Lactic Acid Calcium Calcium Adj for Albumin Total Bilirubin AST ALT Alkaline Phosphatase Troponin I Total Protein Albumin Urine Color Yellow Urine Clarity Hazy H Urine pH 5.0 Ur Specific [place] 1.014 Urine Protein 30 H Urine Glucose (UA) Negative Urine Ketones Negative Urine Occult Blood Large H Urine Nitrate Negative Urine Bilirubin Negative Urine Urobilinogen Less than 2 Ur Leukocyte Esterase Negative Urine RBC 19 H Urine WBC 2 Ur Squamous Epith Cells <1 Urine Bacteria Rare H Hyaline Casts 13 Urine Mucus Few H Micro UA Comment Cath-culture ind Ur Microscopic Review Not Reportable Urine Culture Comments Cath-cult indicated Nasal Screen MRSA (PCR) Blood Type Antibody Screen MTS Gel Crossmatch Blood Bank Comment Bld Prod Order Comment 07/25/18 07/25/18 07/25/18 06:28 08:52 08:52 WBC 8.5 RBC 2.64 L Hgb 8.2 L D Hct 24.4 L MCV 92.2 D MCH 31.2 MCHC 33.9 RDW 16.5 Plt Count 76 L D MPV 9.9 Prelim Diff (Auto) Neut % (Auto) Lymph % (Auto) [place] % (Auto) Eos % (Auto) Baso % (Auto) Neut # (Auto) Lymph # (Auto) [place] # (Auto) Eos # (Auto) Baso # (Auto) WBC Differential Diff Scan Differential Comment Platelet Estimate Platelet Morphology [place] Cells Acanthocytes (Spur) Keratocytes PT 12.5 H INR 1.2 APTT Fibrinogen Puncture Site Patient Temperature O2 Saturation ABG pH ABG pCO2 ABG pO2 ABG HCO3 ABG O2 Content ABG Base Excess ABG Methemoglobin Tao Test Hemoglobin Carboxyhemoglobin O2 Delivery Device Vent Setting Inspired O2 Critical Value Sodium Potassium Chloride Carbon Dioxide Anion Gap BUN Creatinine Estimated GFR Random Glucose Lactic Acid 2.1 H Calcium Calcium Adj for Albumin Total Bilirubin AST ALT Alkaline Phosphatase Troponin I Total Protein Albumin Urine Color Urine Clarity Urine pH Ur Specific [place] Urine Protein Urine Glucose (UA) Urine Ketones Urine Occult Blood Urine Nitrate Urine Bilirubin Urine Urobilinogen Ur Leukocyte Esterase Urine RBC Urine WBC Ur Squamous Epith Cells Urine Bacteria Hyaline Casts Urine Mucus Micro UA Comment Ur Microscopic Review Urine Culture Comments Nasal Screen MRSA (PCR) Blood Type Antibody Screen [facility] Gel Crossmatch Blood Bank Comment Bld Prod Order Comment 07/25/18 07/25/18 07/25/18 08:52 08:52 08:52 WBC RBC Hgb Hct MCV MCH MCHC RDW Plt Count MPV Prelim Diff (Auto) Neut % (Auto) Lymph % (Auto) [place] % (Auto) Eos % (Auto) Baso % (Auto) Neut # (Auto) Lymph # (Auto) [place] # (Auto) Eos # (Auto) Baso # (Auto) WBC Differential Diff Scan Differential Comment Platelet Estimate Platelet Morphology [place] Cells Acanthocytes (Spur) Keratocytes PT INR APTT 29.2 D Fibrinogen 268 Puncture Site Patient Temperature O2 Saturation ABG pH ABG pCO2 ABG pO2 ABG HCO3 ABG O2 Content ABG Base Excess ABG Methemoglobin Tao Test Hemoglobin Carboxyhemoglobin O2 Delivery Device Vent Setting Inspired O2 Critical Value Sodium 142 Potassium 3.8 D Chloride 114 H Carbon Dioxide 19.3 L Anion Gap 9 BUN 68 H Creatinine 2.45 H Estimated GFR 25 L Random Glucose 104 Lactic Acid Calcium 7.7 L D Calcium Adj for Albumin Total Bilirubin AST ALT Alkaline Phosphatase Troponin I Total Protein Albumin Urine Color Urine Clarity Urine pH Ur Specific [place] Urine Protein Urine Glucose (UA) Urine Ketones Urine Occult Blood Urine Nitrate Urine Bilirubin Urine Urobilinogen Ur Leukocyte Esterase Urine RBC Urine WBC Ur Squamous Epith Cells Urine Bacteria Hyaline Casts Urine Mucus Micro UA Comment Ur Microscopic Review Urine Culture Comments Nasal Screen MRSA (PCR) Blood Type Antibody Screen [employer] Blood Bank Comment Bld Prod Order Comment 07/25/18 07/25/18 07/25/18 09:00 10:47 17:45 WBC RBC Hgb 8.7 L Hct 26.3 L MCV MCH MCHC RDW Plt Count MPV Prelim Diff (Auto) Neut % (Auto) Lymph % (Auto) [place] % (Auto) Eos % (Auto) Baso % (Auto) Neut # (Auto) Lymph # (Auto) [place] # (Auto) Eos # (Auto) Baso # (Auto) WBC Differential Diff Scan Differential Comment Platelet Estimate Platelet Morphology [place] Cells Acanthocytes (Spur) Keratocytes PT INR APTT Fibrinogen Puncture Site Patient Temperature O2 Saturation ABG pH ABG pCO2 ABG pO2 ABG HCO3 ABG O2 Content ABG Base Excess ABG Methemoglobin Tao Test Hemoglobin Carboxyhemoglobin O2 Delivery Device Vent Setting Inspired O2 Critical Value Sodium Potassium Chloride Carbon Dioxide Anion Gap BUN Creatinine Estimated GFR Random Glucose Lactic Acid 1.3 Calcium Calcium Adj for Albumin Total Bilirubin AST ALT Alkaline Phosphatase Troponin I Total Protein Albumin Urine Color Urine Clarity Urine pH Ur Specific [place] Urine Protein Urine Glucose (UA) Urine Ketones Urine Occult Blood Urine Nitrate Urine Bilirubin Urine Urobilinogen Ur Leukocyte Esterase Urine RBC Urine WBC Ur Squamous Epith Cells Urine Bacteria Hyaline Casts Urine Mucus Micro UA Comment Ur Microscopic Review Urine Culture Comments Nasal Screen MRSA (PCR) Not detected Blood Type Antibody Screen [employer] Gel CrossExplorratch Blood Bank Comment Bld Prod Order Comment 07/25/18 07/26/18 21:08 01:39 WBC RBC Hgb 9.5 L Hct MCV MCH MCHC RDW Plt Count MPV Prelim Diff (Auto) Neut % (Auto) Lymph % (Auto) [place] % (Auto) Eos % (Auto) Baso % (Auto) Neut # (Auto) Lymph # (Auto) [place] # (Auto) Eos # (Auto) Baso # (Auto) WBC Differential Diff Scan Differential Comment Platelet Estimate Platelet Morphology [place] Cells Acanthocytes (Spur) Keratocytes PT INR APTT Fibrinogen Puncture Site Right radial Patient Temperature 98.6 O2 Saturation 97 ABG pH 7.29 L* ABG pCO2 36 L ABG pO2 161 H ABG HCO3 17 L ABG O2 Content 12.1 ABG Base Excess -8.4 L ABG Methemoglobin 1.5 Tao Test Present Hemoglobin 8.6 L Carboxyhemoglobin 1.0 O2 Delivery Device Ventilator Vent Setting Prvc/ac Inspired O2 50 Critical Value Yes Sodium Potassium Chloride Carbon Dioxide Anion Gap BUN Creatinine Estimated GFR Random Glucose Lactic Acid Calcium Calcium Adj for Albumin Total Bilirubin AST ALT Alkaline Phosphatase Troponin I Total Protein Albumin Urine Color Urine Clarity Urine pH Ur Specific [place] Urine Protein Urine Glucose (UA) Urine Ketones Urine Occult Blood Urine Nitrate Urine Bilirubin Urine Urobilinogen Ur Leukocyte Esterase Urine RBC Urine WBC Ur Squamous Epith Cells Urine Bacteria Hyaline Casts Urine Mucus Micro UA Comment Ur Microscopic Review Urine Culture Comments Nasal Screen MRSA (PCR) Blood Type Antibody Screen MTS Gel Crossmatch Blood Bank Comment Bld Prod Order Comment Result Diagrams: 07/26/18 01:39 07/25/18 08:52 Imaging: Impressions GI Bleed Scan Nuclear Medicine 07/25/18 00:00 CONCLUSION: 1. No evidence of active bleeding. Procedures: 07/25/18: Intubated, central line placed. Patient/Family Conference Present at Family Conference: Lara, daughter Bre, daughter Alley Family Conference Location: Bedside Issues Discussed: * Palliative care role, purpose, approach * Additional medical, psychosocial, and spiritual history * Patients general health, functional status, and cognitive changes in the months leading up to the current hospitalization * Patient/family understanding of the current medical problems * Patient/family understanding of prognosis * Patients goals of care as best understood from advance directives and/or conversations and/or values * Current medical treatment options and benefits/burdens of those options * Likely scenarios comparing ongoing aggressive care with a transition to comfort measures only * Questions answered to the best of my ability * Palliative care contact information provided Assessment and Plan - Disease Oriented Problem List (1) CAD (coronary artery disease) - Symptom Scale (1) Pain 0-10 Scale: Unable to quantify (2) Dyspnea 0-10 Scale: Unable to quantify (3) Weakness 0-10 Scale: Unable to quantify Pertinent Non-Medical Issues: Psychosocial: Patient is a retired assistant professor of history. He was living at home with his and daughter prior to this hospitalization. Spiritual: Have requested women's garment fitter services Legal: Patient is incapacitated to make his own decisions, it is unlikely he will regain capacity. Patient has power of assembly loader for healthcare and 5 wishes. He has designated his as primary surrogate and daughters to share as alternates. Ethical issues impacting care: Family indicating they verbalized wishes for DNR to [facility] staff, they also report they were prohibited from make decisions regarding aggressive care once in the ED. Bedside nurse reports risk management is involved. Important Contacts: Lara [phone] Daughter Alley and [phone] Daughter Bre [phone] Prognosis: Per discussion with family, patient has had a slow decline over the past year. He has been noncompliant with self care. Family indicates he has been eating whatever he wants without regard to sodium content and swelling. He has disregarded recommendations from his medical providers. Given functional decline prior to the hospitalization along with current critical illness, life expectancy is limited. Family's plan for withdrawal of life support today. I anticipate in the coming hours to days once withdrawn Code Status: No Code DNR Plan: Legal decision maker: Patient is incapacitated to make his own decisions, it is unlikely he will regain capacity. Patient has power of assembly loader for healthcare and 5 wishes. He has designated his as primary surrogate and daughters to share as alternates. Goals: Plan for compassionate withdrawal of support later today with family at bedside. Hospice has been consulted. Cement Truck Loader has visited, planning for veterans pending later today. Family hoping for a peaceful . They do not wish for patient to be transferred anywhere today. Will need to gently reassess if patient survives the night. CODE STATUS: Currently intubated, DNR after extubation SYMPTOMS: --Pain secondary to multiple falls and aggressive interventions since admission. Family indicates patient had a chronic history of generalized pain. Currently appears comfortable on the ventilator. Has been on fentanyl drip. Pre-and post withdrawal of ventilator orders in place. --Dyspnea: Currently breathing easy on ventilator. Having some spontaneous respirations. Is on Versed and fentanyl for sedation. Plans for compassionate withdrawal of life support later today. Orders placed for pre-and post withdrawal dyspnea. Recommend treating dyspnea with Dilaudid and Ativan rather than use of oxygen. Palliative care will continue to follow during hospital course as condition evolves, to assist patient/decision-maker with understanding of medical conditions, weighing benefits/burdens of treatment options, for clarification of goals of treatment. Additionally will assist with any symptoms of palliative concern Appreciation Thank you for the opportunity to participate in the care of Kenneth Mercedes. Attestation Attestation: To help prompt me to consider important information that might be impacting today's encounter and assessment, information from prior notes written by myself or my colleagues may have been "brought forward" into today's note. My signature on this note, however, is an attestation that I personally performed the exam, history, and/or decision-making noted today, and, unless otherwise indicated, the interactions with patient, family, and staff as well as the review of records all occurred today. I also attest that the listed assessment and stated plan reflect my best clinical judgment today based on the combination of historical information, prior notes, and today's exam/ interactions. When time spent is documented, it refers only to time spent today by the signer, or if indicated, combined time spent today by collaborating physician/nurse practitioner.
[2018-07-26] MEDS ORDERED: Hyoscyamine Inj 0.5 MG/ML Ampul IV.PUSH ONE (12:02)
[2018-07-26] MEDS ORDERED: HYDROmorphone PF Inj 1 MG/ML Ampul IV.PUSH PRN (12:02)
[2018-07-26] MEDS ORDERED: Acetaminophen 650 MG Supp RECTAL PRN (12:02)
[2018-07-26] MEDS ORDERED: fentaNYL Citrate Inj 100 MCG/2 ML Ampul IV.PUSH ONE ×2 (12:02)
[2018-07-26] MEDS ORDERED: Hyoscyamine Inj 0.5 MG/ML Ampul IV.PUSH PRN (12:02)
--- NOTE | 2018-07-26 12:08 | P.PNGI ---
Subjective Interval history: Intubated and ventilated No reported bleeding No obvious bleeding noted Physical Exam Vital signs: Vital Signs 07/25/18 12:30 07/25/18 12:47 07/25/18 12:52 Temperature Pulse Rate 59 L 59 L Respiratory Rate 17 10 L 16 Blood Pressure 93/54 L 76/44 L Pulse Oximetry 100 100 100 07/25/18 12:56 07/25/18 13:00 07/25/18 13:04 Temperature Pulse Rate 59 L 59 L 59 L Respiratory Rate 16 16 16 Blood Pressure 78/46 L 81/49 L 106/56 L Pulse Oximetry 100 100 100 07/25/18 13:08 07/25/18 13:12 07/25/18 13:15 Temperature Pulse Rate 59 L 59 L 59 L Respiratory Rate 16 16 16 Blood Pressure 107/58 L 107/58 L Pulse Oximetry 100 100 100 07/25/18 13:16 07/25/18 13:20 07/25/18 13:24 Temperature Pulse Rate 59 L 59 L 59 L Respiratory Rate 16 16 16 Blood Pressure 106/57 L 105/57 L 105/57 L Pulse Oximetry 100 100 100 07/25/18 13:28 07/25/18 13:32 07/25/18 13:36 Temperature Pulse Rate 59 L 59 L 59 L Respiratory Rate 16 16 10 L Blood Pressure 105/57 L 104/58 L 105/57 L Pulse Oximetry 100 100 100 07/25/18 14:00 07/25/18 15:00 07/25/18 16:00 Temperature Pulse Rate 59 L 59 L 59 L Respiratory Rate 17 16 16 Blood Pressure 100/57 L 92/59 L 92/54 L Pulse Oximetry 07/25/18 16:42 07/25/18 16:47 07/25/18 16:56 Temperature Pulse Rate Respiratory Rate 18 22 Blood Pressure Pulse Oximetry 97 97 99 07/25/18 17:01 07/25/18 17:23 07/25/18 17:30 Temperature Pulse Rate 59 L 60 59 L Respiratory Rate 8 L 11 L Blood Pressure 110/53 L 108/53 L Pulse Oximetry 07/25/18 17:45 07/25/18 18:00 07/25/18 18:15 Temperature Pulse Rate 59 L 59 L 59 L Respiratory Rate 12 12 9 L Blood Pressure 100/55 L 95/47 L 96/49 L Pulse Oximetry 100 99 98 12/03/18 18:30 07/25/18 19:00 07/25/18 19:15 Temperature 100.0 F H Pulse Rate 59 L 59 L 59 L Respiratory Rate 16 15 16 Blood Pressure 95/50 L 94/52 L 115/55 L Pulse Oximetry 99 98 100 07/25/18 19:30 07/25/18 19:45 07/25/18 20:00 Temperature 100 F H Pulse Rate 59 L 59 L 59 L Respiratory Rate 17 15 15 Blood Pressure 111/56 L 114/58 L 108/56 L Pulse Oximetry 97 97 96 07/25/18 20:15 07/25/18 20:30 07/25/18 20:45 Temperature Pulse Rate 59 L 59 L 60 Respiratory Rate 14 11 L 12 Blood Pressure 104/53 L 105/54 L 106/52 L Pulse Oximetry 98 07/25/18 21:00 07/25/18 21:15 07/25/18 21:30 Temperature Pulse Rate 60 60 60 Respiratory Rate 13 10 L 9 L Blood Pressure 104/55 L 97/50 L 95/50 L Pulse Oximetry 97 93 L 98 07/25/18 21:45 07/25/18 22:00 07/25/18 22:15 Temperature Pulse Rate 60 61 61 Respiratory Rate 10 L 9 L 9 L Blood Pressure 95/51 L 98/52 L 98/52 L Pulse Oximetry 100 100 100 07/25/18 22:30 07/25/18 22:45 07/25/18 23:00 Temperature Pulse Rate 61 60 61 Respiratory Rate 9 L 6 L 18 Blood Pressure 92/49 L 96/49 L 93/51 L Pulse Oximetry 100 100 99 07/25/18 23:15 07/25/18 23:20 07/25/18 23:30 Temperature Pulse Rate 61 60 Respiratory Rate 12 14 13 Blood Pressure 93/48 L 94/55 L Pulse Oximetry 96 97 92 L 07/25/18 23:45 07/26/18 00:00 07/26/18 00:15 Temperature 101.5 F H Pulse Rate 60 61 61 Respiratory Rate 10 L 13 11 L Blood Pressure 94/51 L 96/48 L 91/54 L Pulse Oximetry 90 L 91 L 100 07/26/18 00:30 07/26/18 00:31 07/26/18 00:32 Temperature Pulse Rate 60 60 60 Respiratory Rate 22 19 13 Blood Pressure 63/33 L 92/40 L 87/43 L Pulse Oximetry 84 L 87 L 80 L 07/26/18 00:33 07/26/18 00:36 07/26/18 01:00 Temperature Pulse Rate 61 60 61 Respiratory Rate 10 L 26 H 12 Blood Pressure 83/39 L 104/53 L Pulse Oximetry 93 L 97 07/26/18 01:08 07/26/18 01:43 07/26/18 02:00 Temperature 100 F H Pulse Rate 61 62 Respiratory Rate 11 L 15 11 L Blood Pressure 102/53 L Pulse Oximetry 98 07/26/18 02:08 07/26/18 03:00 07/26/18 03:08 Temperature Pulse Rate 66 61 62 Respiratory Rate 12 11 L 11 L Blood Pressure 108/52 L 110/56 L Pulse Oximetry 07/26/18 04:00 07/26/18 04:08 07/26/18 04:25 Temperature 100.5 F H Pulse Rate 61 61 Respiratory Rate 11 L 11 L 14 Blood Pressure 110/54 L Pulse Oximetry 98 07/26/18 05:00 07/26/18 05:08 07/26/18 06:00 Temperature Pulse Rate 60 60 60 Respiratory Rate 10 L 13 13 Blood Pressure 91/43 L Pulse Oximetry 95 07/26/18 06:08 07/26/18 07:00 07/26/18 07:08 Temperature Pulse Rate 60 61 61 Respiratory Rate 12 9 L 12 Blood Pressure 94/44 L 100/46 L Pulse Oximetry 07/26/18 08:00 07/26/18 08:08 07/26/18 08:17 Temperature 98.8 F Pulse Rate 63 64 Respiratory Rate 9 L 10 L 12 Blood Pressure 94/45 L Pulse Oximetry 95 07/26/18 09:00 07/26/18 09:08 07/26/18 10:00 Temperature Pulse Rate 65 66 68 Respiratory Rate 18 19 16 Blood Pressure 90/42 L Pulse Oximetry 95 07/26/18 10:08 07/26/18 10:30 07/26/18 11:00 Temperature Pulse Rate 68 68 67 Respiratory Rate 14 13 13 Blood Pressure 88/50 L 100/47 L 94/44 L Pulse Oximetry 96 95 97 07/26/18 11:30 Temperature Pulse Rate 67 Respiratory Rate 17 Blood Pressure 99/47 L Pulse Oximetry 95 Intake & Output 07/25/18 07/26/18 07/26/18 18:59 06:59 18:59 Intake Total 705 / 705 2200 / 2200 100 / 100 Output Total 990 / 990 260 / 260 115 / 115 Balance -285 / -285 1940 / 1940 -15 / -15 Weight 110.7 kg Intake: IV 505 / 505 2200 / 2200 100 / 100 Versed Inj 100 mg In 100 ml @ 2 100 / 100 100 / 100 MG/HR 2 mls/hr IV.CONT TITRATE PRN Rx#:[id number] Protonix Inj 80 MG In NS Inj 100 / 100 100 / 100 100 ML @ 10 mls/hr IV.CONT CONT ALLY Rx#:[id number] NS Inj 1,000 ML @ 100 mls/hr IV 1000 / 1000 .CONT .Q10H ALLY Rx#:[id number] Calcium Chloride Inj 2 GM In NS 120 / 120 Inj 100 ML @ 120 mls/hr IV.SIG ONCE ONE Rx#:[id number] Protonix Inj 80 MG In NS Inj 35 35 / 35 ML @ 420 mls/hr IV.SIG BOLUS ONE Rx#:[id number] NS Inj 1,000 ML @ Wide Open IV. 1000 / 1000 SIG BOLUS ONE Rx#:[id number] fentaNYL 10 mcg/mL Premix Drip 250 / 250 2,500 mcg In 250 ml @ 50 MCG/HR 5 mls/hr IV.SIG TITRATE PRN Rx #:[id number] Anesthesia Amount 200 / 200 Output: Urine 150 / 150 Urine Amount (Catheter) 840 / 840 260 / 260 115 / 115 Indwelling Urethral Catheter 840 / 840 260 / 260 115 / 115 Other: Date of Last Bowel Movement 07/25/18 07/25/18 07/25/18 - Constitutional chronically ill appearing - Routine Respiratory Exam Present: patient mechanically ventilated - Urinary Catheter Management Indwelling Urethral Catheter Cath placed during this visit: yes Reason for continuing: Hourly intake/output Insertion date: 07/25/18 Insertion time: 03:19 Results - Labs CBC & Chem 7: 07/26/18 01:39 07/25/18 08:52 Laboratory Results - last 24 hr 07/25/18 07/25/18 07/25/18 02:08 02:20 09:00 Hgb Hct Puncture Site Patient Temperature O2 Saturation ABG pH ABG pCO2 ABG pO2 ABG HCO3 ABG O2 Content ABG Base Excess ABG Methemoglobin Tao Test Hemoglobin Carboxyhemoglobin O2 Delivery Device Vent Setting Inspired O2 Critical Value Nasal Screen MRSA (PCR) Not detected Blood Type A Positive Antibody Screen Negative MTS Gel Crossmatch See Detail Blood Bank Comment 07/25/18 07/25/18 07/26/18 17:45 21:08 01:39 Hgb 8.7 L 9.5 L Hct 26.3 L Puncture Site Right radial Patient Temperature 98.6 O2 Saturation 97 ABG pH 7.29 L* ABG pCO2 36 L ABG pO2 161 H ABG HCO3 17 L ABG O2 Content 12.1 ABG Base Excess -8.4 L ABG Methemoglobin 1.5 Tao Test Present Hemoglobin 8.6 L Carboxyhemoglobin 1.0 O2 Delivery Device Ventilator Vent Setting Prvc/ac Inspired O2 50 Critical Value Yes Nasal Screen MRSA (PCR) Blood Type Antibody Screen MTS Gel Crossmatch Blood Bank Comment Microbiology 07/25/18 04:52 Catheterized Urine Urine Culture - Preliminary No growth in 24 hours - Imaging Impressions GI Bleed Scan Nuclear Medicine 07/25/18 00:00 CONCLUSION: 1. No evidence of active bleeding. Assessment and Plan (1) GI bleed Status: Acute Code(s): K92.2 - Gastrointestinal hemorrhage, unspecified - Plan This is an 83-year-old patient who came to the emergency room at [facility] with multiple near syncopal episodes. Patient has significant medical history atrial fibrillation, cardiac pacemaker, defibrillator, CAD, coronary artery disease, high cholesterol, hypertension, hypothyroidism, prostate cancer and psoriasis. Surgical history significant for knee surgery and repair of abdominal aortic aneurysm. Patient was found by EMS to be extremely hypotensive with a systolic of 60. Upon arrival to ER, hemoglobin noted to be 2.5 hematocrit 8.1. Patient is currently intubated and mechanically ventilated. HPI obtained from bedside RN and documentation. Patient received 7 units of packed RBCs, 1 unit of cryoprecipitate, 1 unit of platelets, 1 unit of fresh frozen plasma and vitamin K. This a.m. hemoglobin 8.2 hematocrit 24.4. Of note, patient was previously on Eliquis for atrial fibrillation. Last known dose not known. 07/26/2018 Patient intubated and mechanically ventilated. No reported bleeding. Family at bedside for withdrawal of life support planned for today. 07/25/2018 bleeding scan- No evidence of active bleeding. 07/25/2018 EGD: 1. The esophagus appeared normal 2. The mucosa of the stomach appeared normal 3. Normal duodenal mucosa in the entire duodenum 4. Retroflexed views revealed a hiatal hernia 07/26/2018 hemoglobin 9.5 Plan -N.p.o. -Orogastric tube to low intermittent wall suction -PPI -Monitor for bleeding -Supportive care -GI will sign off at this time, please notify for any further needs This patient has been seen by myself and and this note is written on his behalf - Attending Attestation Betsy
[2018-07-26 12:10] VITALS: TEMP 99.4
--- NOTE | 2018-07-26 13:22 | P.PNCC ---
Subjective Subjective Remarks/Hospital Course: 07/25: 83-year-old male with past medical history of hypertension, coronary artery disease with prior CABG, ventricular tachycardia with prior AICD placed in 2012, atrial fibrillation on chronic anticoagulation with Eliquis , hypertension, hypothyroidism, obesity, abdominal aortic aneurysm with prior endovascular repair. His family states that he went on a cruise a couple of weeks ago and when he came back he felt generalized weakness and malaise. He had some upper respiratory symptoms and was prescribed azithromycin for 10 days. Over the last couple of days he has had confusion. Tonight he was going to the bathroom and slid to the floor with near syncope. Vitals were initially normal and he was transported by [facility] but in route he became agitated and complained of thirst. He arrived and was pale with systolic blood pressure in the 60s. He was intubated. Bedside abdominal ultrasound demonstrated abdominal aortic aneurysm. He was given 4 units of emergency release packed red blood cells. He was taken emergently to CT scan which demonstrated infrarenal endograft with enlargement of the [place] sac with suspected endoleak. Dr. Ty discussed with vascular surgery, Dr. Lewis. Patient was noted to have abnormal findings in the duodenum concerning for duodenitis. Dr Lewis recommended GI workup to determine source of bleeding followed by eventual CTA to better image the aorta, as the initial was limited by contrast timing (perhaps due to poor cardiac function.) Placed R IJ Introducer and transfused aggressively in the ED. 07/26: Remains sedated/encephalopathic, intubated on mechanical ventilation. Patient's daughter and wanted to transition to comfort measures and proceed with terminal wean. Per patient's daughter and he was supposed to be a DNR and never wanted aggressive care. Objective Vital Signs / I&O: Vital Signs 07/25/18 13:20 07/25/18 13:24 07/25/18 13:28 Temperature Pulse Rate 59 L 59 L 59 L Respiratory Rate 16 16 16 Blood Pressure 105/57 L 105/57 L 105/57 L Pulse Oximetry 100 100 100 07/25/18 13:32 07/25/18 13:36 07/25/18 14:00 Temperature Pulse Rate 59 L 59 L 59 L Respiratory Rate 16 10 L 17 Blood Pressure 104/58 L 105/57 L 100/57 L Pulse Oximetry 100 100 07/25/18 15:00 12/03/18 16:00 07/25/18 16:42 Temperature Pulse Rate 59 L 59 L Respiratory Rate 16 16 18 Blood Pressure 92/59 L 92/54 L Pulse Oximetry 97 07/25/18 16:47 07/25/18 16:56 07/25/18 17:01 Temperature Pulse Rate 59 L Respiratory Rate 22 Blood Pressure Pulse Oximetry 97 99 07/25/18 17:23 07/25/18 17:30 07/25/18 17:45 Temperature Pulse Rate 60 59 L 59 L Respiratory Rate 8 L 11 L 12 Blood Pressure 110/53 L 108/53 L 100/55 L Pulse Oximetry 100 07/25/18 18:00 07/25/18 18:15 07/25/18 18:30 Temperature 100.0 F H Pulse Rate 59 L 59 L 59 L Respiratory Rate 12 9 L 16 Blood Pressure 95/47 L 96/49 L 95/50 L Pulse Oximetry 99 98 99 07/25/18 19:00 07/25/18 19:15 07/25/18 19:30 Temperature Pulse Rate 59 L 59 L 59 L Respiratory Rate 15 16 17 Blood Pressure 94/52 L 115/55 L 111/56 L Pulse Oximetry 98 100 97 07/25/18 19:45 07/25/18 20:00 07/25/18 20:15 Temperature 100 F H Pulse Rate 59 L 59 L 59 L Respiratory Rate 15 15 14 Blood Pressure 114/58 L 108/56 L 104/53 L Pulse Oximetry 97 96 98 07/25/18 20:30 07/25/18 20:45 07/25/18 21:00 Temperature Pulse Rate 59 L 60 60 Respiratory Rate 11 L 12 13 Blood Pressure 105/54 L 106/52 L 104/55 L Pulse Oximetry 97 07/25/18 21:15 07/25/18 21:30 07/25/18 21:45 Temperature Pulse Rate 60 60 60 Respiratory Rate 10 L 9 L 10 L Blood Pressure 97/50 L 95/50 L 95/51 L Pulse Oximetry 93 L 98 100 07/25/18 22:00 07/25/18 22:15 07/25/18 22:30 Temperature Pulse Rate 61 61 61 Respiratory Rate 9 L 9 L 9 L Blood Pressure 98/52 L 98/52 L 92/49 L Pulse Oximetry 100 100 100 07/25/18 22:45 07/25/18 23:00 07/25/18 23:15 Temperature Pulse Rate 60 61 61 Respiratory Rate 6 L 18 12 Blood Pressure 96/49 L 93/51 L 93/48 L Pulse Oximetry 100 99 96 07/25/18 23:20 07/25/18 23:30 07/25/18 23:45 Temperature Pulse Rate 60 60 Respiratory Rate 14 13 10 L Blood Pressure 94/55 L 94/51 L Pulse Oximetry 97 92 L 90 L 07/26/18 00:00 07/26/18 00:15 07/26/18 00:30 Temperature 101.5 F H Pulse Rate 61 61 60 Respiratory Rate 13 11 L 22 Blood Pressure 96/48 L 91/54 L 63/33 L Pulse Oximetry 91 L 100 84 L 07/26/18 00:31 07/26/18 00:32 07/26/18 00:33 Temperature Pulse Rate 60 60 61 Respiratory Rate 19 13 10 L Blood Pressure 92/40 L 87/43 L 83/39 L Pulse Oximetry 87 L 80 L 93 L 07/26/18 00:36 07/26/18 01:00 07/26/18 01:08 Temperature Pulse Rate 60 61 61 Respiratory Rate 26 H 12 11 L Blood Pressure 104/53 L 102/53 L Pulse Oximetry 97 07/26/18 01:43 07/26/18 02:00 07/26/18 02:08 Temperature 100 F H Pulse Rate 62 66 Respiratory Rate 15 11 L 12 Blood Pressure 108/52 L Pulse Oximetry 98 07/26/18 03:00 07/26/18 03:08 07/26/18 04:00 Temperature 100.5 F H Pulse Rate 61 62 61 Respiratory Rate 11 L 11 L 11 L Blood Pressure 110/56 L Pulse Oximetry 07/26/18 04:08 07/26/18 04:25 07/26/18 05:00 Temperature Pulse Rate 61 60 Respiratory Rate 11 L 14 10 L Blood Pressure 110/54 L Pulse Oximetry 98 07/26/18 05:08 07/26/18 06:00 07/26/18 06:08 Temperature Pulse Rate 60 60 60 Respiratory Rate 13 13 12 Blood Pressure 91/43 L 94/44 L Pulse Oximetry 95 07/26/18 07:00 07/26/18 07:08 07/26/18 08:00 Temperature 98.8 F Pulse Rate 61 61 63 Respiratory Rate 9 L 12 9 L Blood Pressure 100/46 L Pulse Oximetry 95 07/26/18 08:08 07/26/18 08:17 07/26/18 09:00 Temperature Pulse Rate 64 65 Respiratory Rate 10 L 12 18 Blood Pressure 94/45 L Pulse Oximetry 07/26/18 09:08 07/26/18 10:00 07/26/18 10:08 Temperature Pulse Rate 66 68 68 Respiratory Rate 19 16 14 Blood Pressure 90/42 L 88/50 L Pulse Oximetry 95 96 07/26/18 10:30 07/26/18 11:00 07/26/18 11:30 Temperature Pulse Rate 68 67 67 Respiratory Rate 13 13 17 Blood Pressure 100/47 L 94/44 L 99/47 L Pulse Oximetry 95 97 95 07/26/18 12:00 Temperature 99.4 F Pulse Rate 67 Respiratory Rate 12 Blood Pressure 102/50 L Pulse Oximetry 95 Intake & Output 07/25/18 07/26/18 07/26/18 18:59 06:59 18:59 Intake Total 705 / 705 2200 / 2200 100 / 100 Output Total 990 / 990 260 / 260 140 / 140 Balance -285 / -285 1940 / 1940 -40 / -40 Weight 110.7 kg Intake: IV 505 / 505 2200 / 2200 100 / 100 Versed Inj 100 mg In 100 ml @ 2 100 / 100 100 / 100 MG/HR 2 mls/hr IV.CONT TITRATE PRN Rx#:[id number] Protonix Inj 80 MG In NS Inj 100 / 100 100 / 100 100 ML @ 10 mls/hr IV.CONT CONT ALLY Rx#:[id number] NS Inj 1,000 ML @ 100 mls/hr IV 1000 / 1000 .CONT .Q10H ALLY Rx#:[id number] Calcium Chloride Inj 2 GM In NS 120 / 120 Inj 100 ML @ 120 mls/hr IV.SIG ONCE ONE Rx#:[id number] Protonix Inj 80 MG In NS Inj 35 35 / 35 ML @ 420 mls/hr IV.SIG BOLUS ONE Rx#:[id number] NS Inj 1,000 ML @ Wide Open IV. 1000 / 1000 SIG BOLUS ONE Rx#:[id number] fentaNYL 10 mcg/mL Premix Drip 250 / 250 2,500 mcg In 250 ml @ 50 MCG/HR 5 mls/hr IV.SIG TITRATE PRN Rx #:[id number] Anesthesia Amount 200 / 200 Output: Urine 150 / 150 Urine Amount (Catheter) 840 / 840 260 / 260 140 / 140 Indwelling Urethral Catheter 840 / 840 260 / 260 140 / 140 Other: Date of Last Bowel Movement 07/25/18 07/25/18 07/25/18 Result Diagrams: 07/26/18 01:39 07/25/18 08:52 Objective Remarks: GENERAL: Elderly pale appearing male SKIN: Cool, poorly perfused. Ecchymosis overlying right anterior chest wall HEAD: Atraumatic. Normocephalic. EYES: Pupils equal and round, 2 mm. No scleral icterus. No injection or drainage. ENT: No nasal bleeding or discharge. Mucous membranes pink and moist. NECK: Trachea midline. No JVD. CARDIOVASCULAR: Paced rhythm rate in the 60s no murmurs rubs or gallops. RESPIRATORY: Orotracheally intubated. Occasional rhonchi. No rales or wheeze. GASTROINTESTINAL: Abdomen soft, unable to appreciate tenderness, rebound. Hypoactive bowel sounds. MUSCULOSKELETAL: Extremities without clubbing, cyanosis. Trace pedal edema. NEUROLOGICAL: Sedated/encephalopathic, orally intubated on mechanical ventilation. No response with painful stimuli Assessment and Plan - Problem List (1) Hemorrhagic shock Code(s): R57.8 - Other shock Status: Acute (2) Acute blood loss anemia Code(s): D62 - Acute posthemorrhagic anemia Status: Acute (3) Melena Code(s): K92.1 - Melena Status: Acute (4) Acute respiratory failure Code(s): J96.00 - Acute respiratory failure, unspecified whether with hypoxia or hypercapnia Status: Acute (5) RAVEN (acute kidney injury) Code(s): N17.9 - Acute kidney failure, unspecified Status: Acute (6) CKD (chronic kidney disease) stage 3, GFR 30-59 ml/min Code(s): N18.3 - Chronic kidney disease, stage 3 (moderate) Status: Chronic (7) Hypothyroidism Code(s): E03.9 - Hypothyroidism, unspecified Status: Chronic - Assessment and Plan Plan: NEURO: Fentanyl for sedation Versed for sedation, will wean drip. RASS -1 RESP: Acute respiratory failure Tobacco abuse Intubated in the emergency department. ET tube has been retracted and is satisfactory on follow-up imaging. PRVC. Ventilator bundle. CV: Hemorrhagic shock Atrial fibrillation on chronic anticoagulation with Eliquis Coronary artery disease with history of CABG Essential hypertension History of V. tach Abdominal aortic aneurysm with history of endovascular repair Pacemaker ICD in place Hyperlipidemia Introducer placed and blood product transfusion initiated with Loiza rapid infuser. Hold eliquis GI: Obesity Melena OG tube to low and wall suction has no bloody or coffee-ground output. Melena was seen on rectal exam by ED physician, but patient has had no BMs in the ED. CT abd/pelvis-report with concern for endoleak. Will require additional aortic imaging to evaluate for endoleak or aortoenteric fistula. However, duodenum is abnormal on CT and could be source of bleeding. Vascular surgery evaluated, Dr. Lewis. Will proceed with GI workup. Discussed with Dr. Mon who will proceed with endoscopy. Protonix drip FEN/RENAL: RAVEN overlying CKD stage III Ortiz in place. Monitor intake and output as marker of perfusion. Monitor electrolytes and replace as indicated. HEME: Acute blood loss anemia overlying chronic anemia Coagulopathy Transfused 7 units packed red cells, 2 units FFP, 1 unit platelets, 1 unit cryo. Contacted pharmacy, initially Andexxa for Eliquis reversal was felt to not be available (later pharmacy called and said it is available if needed but had ordered KCentra 50 units/kg. Holding Eliquis. Vitamin K 10 mg IV. Calcium chloride 2 gram IV. External rewarming. Serial Hgb q6, f/u coags/ fibrinogen. ENDO: Hypothyroidism On Synthroid 25 mcg p.o. daily, will give Synthroid 12.5 mcg IV daily PROPH: SCDs for DVT prophylaxis. Pharmacology DVT prophylaxis is contraindicated due to active hemorrhage. Protonix drip as per above. Palliative care consulted to assist with deciding goals of therapy. ACCESS: RIJ introducer placed 07/25/18 - discontinued 07/25 evening as not functioning well. 07/25: Dr. Fonseca discussed with patient's family. is the next of kin. Family largely defers to daughter Bre Varghese who is a nurse. She can be reached at [phone]. [place] but expects to arrive at 6 PM on 07/25/18. Family is in agreement that he would not want CPR if it came to the point of pulseless arrest. They do.feel that he would want workup to determine the source of bleeding. If the source is something "easily corrected " they would like to proceed with necessary procedures. If it required surgical intervention they would likely transition to comfort measures as he is a poor surgical candidate and they do not feel that he would want to endure the morbidity of surgery. His alternate code intubation only. Discussed with Dr. Gaston Patient is critically ill with hemorrhagic shock requiring emergent placement of vascular access and large-volume transfusion of blood product. He is at high risk for further deterioration and . 07/26: Patient's daughter and mother told me that he was supposed to be a DNR and they did not want aggressive measures. They declined any further invasive procedures and transfusions. Patient has remained encephalopathic since arrival even with turning the sedation off yesterday. He appears to have an end -stage condition/terminal condition. Patient's family wishes to transition to comfort measures only and wished to proceed with terminal wean. Exhibits B and C completed. Plan to proceed with terminal wean and extubate the with comfort measures only when family ready. Critical care time 35 minutes exclusive of separately billable procedures.
[2018-07-26] MEDS: fentaNYL 10 mcg/mL Premix Drip 2,500 MCG/250 ML BAG IV.SIG PRN (14:04)
[2018-07-26 15:29] VITALS: RESP 13; O2SAT 97
[2018-07-26 16:28] VITALS: BP 95/46; PULSE 64
--- NOTE | 2018-07-26 18:44 | ECHRPT ---
Indication: SYNCOPE CONCLUSIONS The left ventricular systolic function is severely reduced with an estimated ejection fraction in th e range of 20-25%. There is global left ventricular dysfunction. The right ventricular systoilc function is mildly decreased. There is mild tricuspid valve regurgitation. BP: / HR: Rhythm: Technical Quality: FINDINGS LEFT VENTRICLE Normal left ventricular size. Wall thickness is normal. The left ventricular systolic function is severely reduced with an estimated ejection fraction in th e range of 20-25%. There is global left ventricular dysfunction. RIGHT VENTRICLE A pacemaker wire is noted. The right ventricular systoilc function is mildly decreased. LEFT ATRIUM The left atrial size is normal. RIGHT ATRIUM The right atrial size is normal. ATRIAL SEPTUM Normal atrial septal thickness AORTA The aortic root and proximal ascending aorta are normal in size on limited imaging. MITRAL VALVE Structurally normal mitral valve. No mitral valve stenosis or regurgitation. AORTIC VALVE Aortic valve sclerosis is present. No aortic valve regurgitation. No aortic valve stenosis. TRICUSPID VALVE There is mild tricuspid valve regurgitation. No tricuspid valve stenosis. There is estimated mild pulmonary hypertension present (range 45 mmHg). PULMONARY VALVE The pulmonary valve is not well visualized. VESSELS The inferior vena cava is normal in size. PERICARDIUM No pericardial effusion. Angel Denny DO (Electronically Signed) Final Date:26 July 2018 18:43
== END 2018-07-26 19:16 | disposition expired ==
LOC: NEPE 01:39 → NEDA 03:49 → N03 06:45
PROVIDERS: ADMIT Emergency Medicine; ATTEND Emergency Medicine
PROC: PANENDO (2018-07-25 12:40)